=== PATIENT | male | born 1965 | race Hispanic/Latino ===

== ENCOUNTER 2016-09-12 09:36 | Day surgery (SDC) | payer OTHER ==
[~2016-09-12] VITALS: Ht 179.1 cm; Wt 120.7 kg
[~2016-09-12 09:36] MED LIST: FURO-129 PO; Lactated Ringer's 1,000 ML IV ONE; SPIR50TA2 PO
[2016-09-12] MEDS ORDERED: Propofol 10,000 mCg/mL 20 mL Inj ONE (09:37)
[2016-09-12] MEDS ORDERED: MeTOProlol 1 mg/mL 5 mL Inj ONE (09:37)
[2016-09-12] MEDS ORDERED: Lidocaine PF 1% 30 mL Inj ONE (09:37)
[2016-09-12 10:06] VITALS: BP 116/81; PULSE 140; RESP 20; O2SAT 99
[2016-09-12] MEDS ORDERED: MetoCLOpramide 5 mg/mL 2 mL Inj IVPUSH PRN (10:55)
[2016-09-12] MEDS ORDERED: Ondansetron 2 mg/mL 2 mL Inj IVPUSH PRN (10:55)
[2016-09-12] MEDS ORDERED: Lactated Ringer's 1,000 ML IV SCH (10:55)
--- NOTE | 2016-09-12 10:55 | PCM.HPANE ---
Patient Data Date of Service: Sep 12, 2016 Surgeon Admitting Provider: Attending Provider:Heber Foss MD Primary Care Physician:Omar Moralez MD Other Provider:Jack Griggs Anesthesia Reason for Visit Alcoholic Cirrhosis Of Liver Ht/WT & BMI Height (Feet): 5 Height (Inches): 10.5 Weight (Kilograms): 120.66 Body Mass Index 37.00 Allergies Coded Allergies: No Known Drug Allergies (Verified Allergy, Unknown, 09/11/16) Past Anesthesia History Anesthesia History: Positive for:: Difficult Intubation (PT STATES THEY HAD A HARD TIME LAST TIME HE WAS HERE), Denies:: Abnormal Airway, Anesthesia Reactions, Fam Anesthesia Reaction, Fam Malignant Hypertherm, Malignant Hyperthermia Diabetes History Hx Diabetes?: No MRSA MRSA: No Medications Hypertension Medication: Yes Home Meds Incl Beta Endy: No Active Scripts Spironolactone 50 Mg [id number] Mg PO DAILY #30 TABLET Ref 0 Prov:Sharon Arambula MD 03/31/16 Furosemide (Lasix)20 Mg [id number] Mg PO DAILY #30 TABLET Ref 0 Prov:Sharon Arambula MD 03/31/16 History History of ENT Problems?: No HEENT History: Positive for:: Difficult Intubation (PT STATES THEY HAD A HARD TIME LAST TIME HE WAS HERE) Denies:: Abnormal Airway Cataracts Dysphagia Hearing Problem Sinus Problem Hx of Heart Problems?: Yes Cardiovascular History: Positive for:: Edema Hypertension Denies:: AICD Atrial Fibrillation Cardiac Surgery Chest Pain Congestive Heart Failure Heart Murmur Irregular Heartbeat Pacemaker Thrombophlebitis Valvular Heart Disease Other Cardiac History: high HR at times Hx of Respiratory Problem?: No Respiratory History: Positive for:: Cough Denies:: Asthma COPD Chest Surgery Dyspnea Emphysema Hemoptysis Pneumonia Tuberculosis Hx Neurologic Problems?: No Neurological History: Positive for:: Dizziness Denies:: Alzheimer's Disease CVA Dementia Headaches Parkinson's Disease Seizures Hx of GI Problems?: Yes Gastrointestinal History: Positive for:: Cirrhosis Gastroesphageal Reflux Gastrointestinal Bleeding Heartburn Denies:: Diverticulitis Gall Bladder Disease Hepatitis Hiatal Hernia Liver Disease Rectal Bleeding Other GI Pertinent History: esophagus rupture in the past Hx of Problems?: No Genitourinary History: Denies:: HX of Hemodialysis Kidney Stones Urinary Tract Infection HX of Peritoneal Dialysis: No Male Hx: Denies:: Prostate Problems Scrotal Mass Testicular Surgery Hx Musculoskeletal Problems?: Yes Musculoskeletal History: Positive for:: Back Injury (working on fishing boats) Joint Replacement (right knee) Denies:: Musculoskeletal Trauma Hx of Psycho/Social Problems?: No Psycho Social History: Denies:: Anxiety Bipolar Disorder Hx Depression Suicide Attempt Hx Surgeries?: Yes (knee right ) Hx Any Other Health Problems?: Yes Other History: Positive for:: Hospitalization Denies:: Cancer Endocrine Disease Thyroid Disease History Blood Transfusions: Positive for:: Blood Transfusions Denies:: Blood Transfuse Reaction Hx Diabetes: No Hx Alcohol Use: Yes (quit - 05/2016)Hx Substance Use: No Smoking Status: Current Some Day Smoker Have You Smoked inLast 12 mo: No Stop/Bang Treated for Sleep Apnea?: No Do You Have a CPAP Machine?: No S-Snoring: Do You Snore Loudly: Yes T-Tired: feel tired, fatigued: No O-Obsered: Observed not breath: No P-Blood Pressure: treated: No B- Body Mass Index > 35 kg/m2: Yes A- Age over 50: Yes N- Neck Large Circumference: Yes G- Gender Male: Yes FABRICIO Total Score: 5 FABRICIO Risk Assessment: High Risk, =/>3 Yes Risk Assessment Category Category 1A: Patient has history of documented sleep apnea, and HAS NOT received any narcotic, sedative or anesthesia administration during this stay. Category 1B: Patient has history of documented sleep apnea, and HAS received any narcotic , sedative or anesthesia administration during this stay Category 2: Patient has SUSPECTED Obstructive Sleep Apnea, and HAS received any narcotic , sedative or anesthesia administration during this stay. Category 3: Patient has SUSPECTED Obstructive Sleep Apnea and HAS NOT received narcotic, sedative or anesthesia administration during this stay. Category 4: Outpatient in Procedural Areas with known sleep apnea or who screen positive for High Risk via the STOP/BANG questionnaire. Exam Exam Vital Signs Vital Signs Date Time Temp Pulse Resp B/P Pulse Ox O2 Delivery O2 Flow Rate FiO2 09/12/16 10:06 140 20 116/81 99 Room Air General Appearance: Alert, Oriented X3, Cooperative Heart: Normal S1, Normal S2, Other (tachycardic) Meds/Labs/Diagnostics Admission Meds Current Medications Lactated Ringer's (Lr) 1,000 ml @ 10 mls/hr Q24H ONCE IV Last administered on 09/12/16t 10:31; Start 09/12/16 at 06:00; Stop 09/13/16 at 05:59 Diagnositcs EKG for tachycardia. Sinus tach Plan Impression Patient chart reviewed, patient interviewed and anesthestic plan with risks, benefits, and alternatives discussed, and informed consent obtained. NPO Status: > 8 hrs ASA Physical Status: ASA3 Severe Disease Anesthetic Plan: MAC Bene/Risks/Altern/Consents: Yes HP Complete Prior to Induction: Yes Carlos Alberto Hernandez MD Sep 12, 2016 10:55
[2016-09-12 11:27] VITALS: BP 98/71; PULSE 93; RESP 16; O2SAT 94
--- NOTE | 2016-09-12 11:31 | PCM.ANEP1 ---
Post Anesthesia Phase 1 PACU Phase 1 Assessment Date of Service: Sep 12, 2016 Vital Signs Vital Signs Date Time Temp Pulse Resp B/P Pulse Ox O2 Delivery O2 Flow Rate FiO2 09/12/16 11:27 93 16 98/71 94 Room Air 09/12/16 10:06 140 20 116/81 99 Room Air Anesthetic Administered: MAC Level of Alertness: Sleepy, easy to arouse HORTA's with Equal Strength: Yes Pain: No Nausea or Vomiting: No Oxygen Delivery: Room Air Lungs: Normal Air Movement Carlos Alberto Hernandez MD Sep 12, 2016 11:31
[2016-09-12 11:35] VITALS: BP 115/79; PULSE 92; RESP 15; O2SAT 95
--- NOTE | 2016-09-12 11:35 | PCM.ANEP2 ---
Post Anesthesia Evaluation ASA/CMS Post Anesthesia Date of Service: Sep 12, 2016 VS in Patient's Normal Range?: Yes Resp Stable; Airway Patent?: Yes CV Function & Hydration Stable: Yes Mental Status Recovered?: Yes Pain control Satisfactory?: Yes N/V Control Satisfactory?: Yes Carlos Alberto Hernandez MD Sep 12, 2016 11:35
[2016-09-12 11:50] VITALS: BP 113/80; PULSE 86; RESP 16; O2SAT 97
--- NOTE | 2016-09-12 13:33 | ENDO ---
[address] [address] ENDOSCOPY PROCEDURE PATIENT: DARRON FERREIRA : 1965 MR#: [id number] ADMIT: 09/12/2016 JOB ID: [id number] PROCEDURE: Esophagogastroduodenoscopy. INDICATIONS: A 51-year-old male who reports for variceal screening. EQUIPMENT: [employer]. SEDATION: Monitored anesthesia as provided by Dr. Carlos Alberto Hernandez. COMPLICATIONS: None identified. PROCEDURE INFORMATION: After the risks and benefits were explained, written and verbal informed consent was obtained. The patient was brought into the endoscopy suite and placed into the left lateral decubitus position. Sedation was achieved using the above-stated medications with the addition of oxygen via nasal cannula. The scope was introduced into the mouth through the bite block and advanced under direct visualization to the level of the second portion of the duodenum. The scope was slowly withdrawn to carefully examine the mucosa for any defects or lesions. Retroflexed views were accomplished in the stomach, the stomach was decompressed, and the scope removed from the patient who tolerated the procedure reasonably well. FINDINGS: 1. Duodenum: The mucosa appeared normal from the bulb through to the second portion. 2. Stomach: Nonspecific diffuse portal hypertensive gastropathy was noted. No mass lesions. No ulcers. No outlet obstruction. No obvious gastric varices, including retroflexed views of the LES. 3. Esophagus: The squamocolumnar junction correlated with the top of the gastric folds. The GEJ was at 42 cm from the incisors. In the distal esophagus there was evidence of grade 1 and at most grade 2 distal esophageal varices, without stigmata of recent bleeding, and no significant high-risk areas apparent. ENDOSCOPIC DIAGNOSES: 1. Grade 1 to grade 2 distal esophageal varices. 2. Portal hypertensive gastropathy. RECOMMENDATIONS: Repeat EGD for variceal surveillance in two years.
== END 2016-09-12 23:59 | disposition home or self-care (01) ==
LOC: END 09:36
PROVIDERS: ATTEND Internal Medicine Gastroenterology
DX: K70.31 Alcoholic cirrhosis of liver with ascites (principal); I85.10 Secondary esophageal varices without bleeding; K76.6 Portal hypertension; K31.89 Other diseases of stomach and duodenum; F10.21 Alcohol dependence, in remission; K40.90 Unilateral inguinal hernia, without obstruction or gangrene, not specified as recurrent; I10 Essential (primary) hypertension; F17.210 Nicotine dependence, cigarettes, uncomplicated; K21.9 Gastro-esophageal reflux disease without esophagitis; Z96.651 Presence of right artificial knee joint
CPT/HCPCS: 43235; 93005; J2250; J7120

== ENCOUNTER 2016-09-19 13:07 | Inpatient (IN) | payer OTHER ==
[2016-09-19] VITALS (10 sets, daily range): BP systolic 74–128; BP diastolic 43–67; PULSE 108–133; RESP 14–30; O2SAT 93–100
[~2016-09-19] VITALS: Ht 177.8 cm; Wt 124.6 kg
[~2016-09-19 13:07] MED LIST changes: -Lactated Ringer's 1,000 ML IV ONE
[2016-09-19] MEDS ORDERED: 0.9% Sodium Chloride 1,000 ML IV ONE ×2 (13:32→13:43)
--- NOTE | 2016-09-19 13:32 | ED.REPORT ---
HPI-GI Bleed Date of Service Sep 19, 2016 ED Provider: Abdiel Suero MD The patient is a 51 year old male with history of alcohol cirrhosis, thrombocytopenia, acute upper GI bleed secondary to esophageal varices, medication noncompliance due to financial issues, who presents to the emergency department complaining of vomiting that began last night. His emesis has been "bloody" and his stools have been "black." He has also noticed abdominal pain and lightheadedness. He has been drinking over the last few days. Nursing Notes Stated Complaint: GI BLEED Chief Complaint: Male Abdominal Pain Nursing Notes Reviewed: Yes Allergies: Coded Allergies: No Known Drug Allergies (Verified Allergy, Unknown, 09/11/16) Scheduled Furosemide (Lasix) 20 Mg Tablet 20 MG PO DAILY Spironolactone (Spironolactone) 50 Mg Tablet 50 MG PO DAILY General Time Seen by Provider: 13:45 Chief Complaint Chief Complaint: Vomiting blood Bleeding Severity: Moderate Hx Obtained From: Patient, EMS Arrived By: Ambulance Onset Occurred: Yesterday Symptom Duration: Since onset Progression Since Onset: Gradually worsening Quality: Painful Severity: Current: Mild Severity: Maximum: Mild Recent Healthcare: No recent hospitalization Similar Sx Previous: Yes Past Medical History Past Medical History Portal hypertension Coagulopathy Thrombocytopenia Cirrhosis Acute upper GI bleed secondary to esophageal varices 05/25 Medication non-compliance due to inability to afford them Respiratory failure w/ intubation (difficult intubate) Arthritis in hands Back injury Depression Past Surgical History Multiple upper endoscopy, with banding of varices Knee surgery R hand Family History Noncontributory Smoking History Current Some Day Smoker Social History Alcohol Use: 3-5 per day Other Social History: Local resident Ambulatory Status Independent Review of Systems GI: Reports: Abdominal pain, Hematemesis, Melena, Nausea, Vomiting Neurologic: Reports: Lightheaded Complete sys rev & neg: except as marked. Physical Exam Initial Vital Signs Vital Signs (First) Date Time Temp Pulse Resp B/P Pulse Ox O2 Delivery O2 Flow Rate FiO2 09/19/16 13:26 36.6 131 24 111/55 98 Initial VS: Reviewed Neck: Supple, Non-tender, Full range of motion Extremities: Vascular intact, Neuro intact, No swelling, No tenderness Neurologic: Alert, Oriented, Nonfocal Psychiatric: Mood/affect normal, Behavior normal, Normal thought content General/Constitutional: Awake, Alert, Cooperative Not actively having hematemesis Cardiovascular: Regular rhythm, Heart sounds NL, No gallop, No murmurs, No rubs , Cap refill not delayed, Peripheral circulation NL, Pulses = bilaterally Heart Rate / Rhythm: Positive: Tachycardia Abdomen: Soft, Non-tender, No guarding, No rebound, BS normoactive, No distention, No hernia, No palpable mass, No pulsatile mass Tenderness/Guarding/Rebound: Negative: Tender epigastric Mild ascites, abdomen otherwise normal Head / Eyes: Normocephalic, PERRL, EOMI Conjunctiva / Sclera: Positive: Icteric ENT: Airway patent, Mucous membranes moist Dried blood on face Skin Skin: Warm, Dry Color / Condition: Positive: Jaundice present Rash / Lesion Notes: spider hemangioma about her chest Lower Extremity / Pelvis / MS: Neurologic intact, Vascular intact No calf swelling or tenderness Interpretation & Diagnostics Lab Results Interpretation Result Diagram: 09/19/16 1321 09/19/16 1321 Test 09/19/16 13:21 09/19/16 13:43 White Blood Count 12.4th/mm3 (3.8-10.1) Red Blood Count 3.67mil/mm3 (4.40-5.80) Hemoglobin 10.8g/dL (13.8-17.2) Hematocrit 32.0% (41.0-50.0) Mean Corpuscular Volume 87.2fL (81-100) Mean Corpuscular Hemoglobin 29.4pg (27.0-35.0) Mean Corpuscular Hemoglobin Concent 33.8% (32.0-37.0) Red Cell Distribution Width 19.3% (12.3-15.4) Platelet Count 177bil/L (150-400) Neutrophils (%) (Auto) 78.8% (40-74) Lymphocytes (%) (Auto) 9.0% (14-46) Monocytes (%) (Auto) 11.5% (4-12) Eosinophils (%) (Auto) 0.1% (0-5) Basophils (%) (Auto) 0.5% (0-3) Prothrombin Time 15.1sec (8.1-12.5) Prothromb Time International Ratio 1.40ratio Sodium Level 135mEq/L (134-144) Potassium Level 4.4mEq/L (3.5-5.2) Chloride Level 98mEq/L (97-108) Carbon Dioxide Level 22mmol/L (18-29) Blood Urea Nitrogen 24mg/dL (6-24) Creatinine 0.59mg/dL (0.76-1.27) Estimat Glomerular Filtration Rate 155mL/min (>59) Glucose Level 167mg/dL (60-99) Calcium Level 8.3mg/dL (8.5-10.1) Total Bilirubin 2.0mg/dL (0.0-1.2) Aspartate Amino Transf (AST/SGOT) 55U/L (0-50) Alanine Aminotransferase (ALT/SGPT) 21U/L (0-44) Alkaline Phosphatase 120U/L (25-150) Total Protein 6.9g/dL (6.4-8.4) Albumin 3.2g/dL (3.4-5.0) ECG Interpretation ECG Interpretation: Sinus tachycardia with LAFB, otherwise normal EKG Unchanged from prior dated 09/12/2016 Time: 14:10 Interpreted by: ED physician Re-Eval/Medical Decision Med Decision/Clinical Course In summary, the patient is a 16-year-old male with end-stage liver disease due to alcoholic cirrhosis, known esophageal varices with prior upper GI bleed related to esophageal varices who presents to the emergency department with 24 hours of hematemesis. Upon arrival he is experiencing active hematemesis. He is tachycardic in the 130s though otherwise hemodynamically stable. He is mentating normally and is not encephalopathic on my examination. Upon arrival to [facility] IVs were obtained and a fluid bolus was administered. The patient was started on octreotide and pantoprazole boluses followed by infusions. LABS: leukocytosis 12.4, hct 32, INR 1.4, good renal function, bilirubin of 2.0 , mild elev transaminases, ammonia 118, alcohol [address] Pipo PERAZA, he will see him GA and requested ICU admission, Rocephin and 2 units of FFP. We administered IV Rocephin and started FFP transfusion given his INR of 1.4 in the setting of his underlying liver disease. He had no ongoing active episodes of hematemesis though he did report that he has been having melena for the last day as well. Overall presentation consistent with bleeding esophageal varices. Abdomen nontender and no findings suggestive of acute surgical intra- abdominal process or perforated gastric ulcer. I do not feel that abdominal imaging studies are immediately indicated. Patient was stabilized here in the emergency department with improvement in his tachycardia. EKG demonstrated sinus tachycardia which was unchanged from prior studies. She my interpretation of his EKG above. The patient was transferred directly from the emergency department to the endoscopy suite under the care of Dr. Foss. He was discussed with the admitting ICU physician and will be taken to the ICU after endoscopy for further management. Source of Hx: Old records, EMS Consultation #1: Referral / Consult Name: Heber Foss MD Requested Call at: 13:53 Call Returned at: 14:08 Note: ICU admission, Rocephin and 2 units of FFP. Consultation #2: Referral / Consult Name: Shelley Machuca MD Consulted With: Hospitalist Requested Call at: 14:09 Call Returned at: 14:31 Data Virtualization Consultant: Will see patient, Agrees with eval, Agrees with plan, Accepts admit Counseled Regarding: Diagnosis, Lab results, Need for admission Discharge & Departure Impression: Primary Impression: GI bleed GI bleed type/associated pathology: unspecified gastrointestinal hemorrhage type Qualified Code: K92.2 - Gastrointestinal hemorrhage, unspecified Additional Impressions: H/O esophageal varices Upper GI bleed Hematemesis Nausea presence: unspecified Qualified Code: K92.0 - Hematemesis End stage liver disease Alcoholic cirrhosis Ascites presence: with ascites Qualified Code: K70.31 - Alcoholic cirrhosis of liver with ascites Alcohol intoxication Complication of substance-induced condition: with unspecified complication Qualified Code: F10.129 - Alcohol abuse with intoxication, unspecified Coagulopathy Disposition: ADMITTED TO HOSPITAL Discharge Condition All VS Reviewed: Yes Condition: Stable Referrals: Omar Moralez MD (PCP) Crit Care Except Billable Proc Time Spent: 105-134 minutes Services Performed: Patient management by me, Time spent at bedside, Reviewing test results, Reviewing imaging, Discussing patient care, Documentation in record, Time with fam/surrogate Scribe Attestation Portions of this note were transcribed by Kiki Gutierrez. I, Dr. Suero personally performed the history, physical exam and medical decision-making; I reviewed and confirmed the accuracy of the information in the transcribed note. Signed by: Wily Myers, 09/19/2016 and 1630. copies to: Omar Moralez MD, Beck O MD Sep 19, 2016 13:32 Matt,Kiki Yao Sep 19, 2016 13:53
[2016-09-19] MEDS ORDERED: Pantoprazole 4 mg/mL 10 mL Inj IVPUSH ONE (13:45)
[2016-09-19] MEDS ORDERED: Pantoprazole Inj 80 MG, Pharmacy To Mix 1 EA in 0.9% Sodium Chloride 80 ML IV ONE ×2 (13:45)
[2016-09-19] MEDS ORDERED: Ondansetron 2 mg/mL 2 mL Inj IVPUSH ONE (13:45)
[2016-09-19 13:46] LABS: BASOPHILS % (AUTO) 0.5 % (0-3); EOSINOPHILS % (AUTO) 0.1 % (0-5); MONOCYTES % (AUTO) 11.5 % (4-12); Mean Corpuscular Hemoglobin 29.4 pg (27.0-35.0); Mean Corpuscular Volume 87.2 fL (81-100); NEUTROPHILS % (AUTO) 78.8 % (40-74); Platelet Count 177 bil/L (150-400)
[2016-09-19] MEDS ORDERED: Octreotide Inj 500 MCG in 0.9% Sodium Chloride 100 ML IV ONE (13:55)
[2016-09-19 13:57] LABS: INR 1.4 ratio
[2016-09-19] MEDS ORDERED: cefTRIAXone Inj 1,000 MG in Dextrose 5% Minibag Plus 50 ML IV SCH (14:10)
[2016-09-19 14:52] LABS: Ammonia 118 ug/dL (18-53)
[2016-09-19] MEDS ORDERED: 0.9% Sodium Chloride 1,000 ML IV SCH ×2 (14:53→16:00)
[2016-09-19] MEDS ORDERED: Alum-Mag Hydrox-Simeth 30 mL Suspension PO PRN (14:55)
[2016-09-19] MEDS ORDERED: Polyethylene Glycol (PEG) 17 Gm Powder PO PRN (14:55)
[2016-09-19] MEDS ORDERED: Senna-Docusate 8.6-50 mg Tablet PO PRN (14:55)
[2016-09-19] MEDS ORDERED: Octreotide Inj 500 MCG in 0.9% Sodium Chloride 99 ML IV SCH ×3 (14:55→23:50)
[2016-09-19] MEDS ORDERED: Pantoprazole 4 mg/mL 10 mL Inj IV SCH ×2 (15:00→16:00)
[2016-09-19] MEDS: cefTRIAXone Inj 1,000 MG in Dextrose 5% Minibag Plus 50 ML IV SCH (15:31)
[2016-09-19] MEDS ORDERED: Lactated Ringer's 1,000 ML IV ONE ×3 (15:35→16:00)
--- NOTE | 2016-09-19 15:35 | PCM.HPANE ---
Patient Data Surgeon Admitting Provider: Attending Provider: Primary Care Physician:Heber Foss MD Other Provider: Reason for Visit Gi Bleed Ht/WT & BMI Height (Feet): 5 Height (Inches): 10 Weight (Kilograms): 120.45 Body Mass Index Allergies Coded Allergies: No Known Drug Allergies (Verified Allergy, Unknown, 09/11/16) Past Anesthesia History Anesthesia History: Positive for:: Difficult Intubation (PT STATES THEY HAD A HARD TIME LAST TIME HE WAS HERE), Denies:: Abnormal Airway, Anesthesia Reactions, Fam Anesthesia Reaction, Fam Malignant Hypertherm, Malignant Hyperthermia Diabetes History Hx Diabetes?: No MRSA MRSA: No Medications Hypertension Medication: Yes Home Meds Incl Beta Endy: Yes Active Scripts Spironolactone 50 Mg [id number] Mg PO DAILY #30 TABLET Ref 0 Prov:Sharon Arambula MD 03/31/16 Furosemide (Lasix)20 Mg [id number] Mg PO DAILY #30 TABLET Ref 0 Prov:Sharon Arambula MD 03/31/16 History History of ENT Problems?: No HEENT History: Positive for:: Difficult Intubation (PT STATES THEY HAD A HARD TIME LAST TIME HE WAS HERE) Denies:: Abnormal Airway Cataracts Dysphagia Hearing Problem Sinus Problem Hx of Heart Problems?: Yes Cardiovascular History: Positive for:: Edema Hypertension Denies:: AICD Atrial Fibrillation Cardiac Surgery Chest Pain Congestive Heart Failure Heart Murmur Irregular Heartbeat Pacemaker Thrombophlebitis Valvular Heart Disease Hx of Respiratory Problem?: No Respiratory History: Positive for:: Cough Denies:: Asthma COPD Chest Surgery Dyspnea Emphysema Hemoptysis Pneumonia Tuberculosis Hx Neurologic Problems?: No Neurological History: Positive for:: Dizziness Denies:: Alzheimer's Disease CVA Dementia Headaches Parkinson's Disease Seizures Hx of GI Problems?: Yes Gastrointestinal History: Positive for:: Cirrhosis Gastroesphageal Reflux Gastrointestinal Bleeding Heartburn Denies:: Diverticulitis Hepatitis Hiatal Hernia Rectal Bleeding Hx of Problems?: No Genitourinary History: Denies:: HX of Hemodialysis Kidney Stones Urinary Tract Infection HX of Peritoneal Dialysis: No Male Hx: Denies:: Prostate Problems Scrotal Mass Testicular Surgery Hx Musculoskeletal Problems?: Yes Musculoskeletal History: Positive for:: Back Injury (working on [employer]) Joint Replacement (right knee) Denies:: Musculoskeletal Trauma Hx of Psycho/Social Problems?: No Psycho Social History: Denies:: Anxiety Bipolar Disorder Hx Depression Suicide Attempt Hx Surgeries?: Yes (knee right ) Hx Any Other Health Problems?: Yes Other History: Positive for:: Hospitalization Denies:: Cancer Endocrine Disease Thyroid Disease History Blood Transfusions: Positive for:: Blood Transfusions Denies:: Blood Transfuse Reaction Hx Diabetes: No Hx Alcohol Use: Yes (quit - 05/2016)Hx Substance Use: No Smoking Status: Current Some Day Smoker Have You Smoked inLast 12 mo: No Stop/Bang Treated for Sleep Apnea?: No Do You Have a CPAP Machine?: No Risk Assessment Category Category 1A: Patient has history of documented sleep apnea, and HAS NOT received any narcotic, sedative or anesthesia administration during this stay. Category 1B: Patient has history of documented sleep apnea, and HAS received any narcotic , sedative or anesthesia administration during this stay Category 2: Patient has SUSPECTED Obstructive Sleep Apnea, and HAS received any narcotic , sedative or anesthesia administration during this stay. Category 3: Patient has SUSPECTED Obstructive Sleep Apnea and HAS NOT received narcotic, sedative or anesthesia administration during this stay. Category 4: Outpatient in Procedural Areas with known sleep apnea or who screen positive for High Risk via the STOP/BANG questionnaire. Exam Exam Vital Signs Vital Signs Date Time Temp Pulse Resp B/P Pulse Ox O2 Delivery O2 Flow Rate FiO2 09/19/16 15:09 120 30 120/50 93 Room Air 09/19/16 13:26 36.6 131 24 111/55 98 General Appearance: Mild Distress HEENT/AIRWAY: MP 2 Lungs: Clear to Auscultation Heart: Exam Unremarkable Meds/Labs/Diagnostics Admission Meds Current Medications Sodium Chloride (Normal Saline) 1,000 ml @ 0 mls/hr Q0M ONCE IV Last administered on 09/19/16 13:44; Start 09/19/16 at 13:32; Stop 09/19/16 at 13:34; Status DC Pantoprazole 80 mg 80 mg STAT ONCE IVPUSH Last administered on 09/19/16 14:02 ; Start 09/19/16 at 13:45; Stop 09/19/16 at 13:46; Status DC Pantoprazole 80 mg/Miscellaneous 1 ea/Sodium Chloride 100 ml @ 10 mls/hr ONCE ONCE IV Last administered on 09/19/16 14:29; Start 09/19/16 at 13:45; Stop at 23:44 Sodium Chloride (Normal Saline) 1,000 ml @ 0 mls/hr Q0M ONCE IV Last administered on 09/19/16 14:02; Start 09/19/16 at 13:43; Stop 09/19/16 at 13:45; Status DC Ondansetron HCl (Zofran Inj) 8 mg ONCE ONCE IVPUSH Last administered on 14:02; Start 09/19/16 at 13:45; Stop 09/19/16 at 13:46; Status DC Octreotide Acetate 50 mcg 50 mcg ONCE ONCE IVPUSH Last administered on 15:08; Start 09/19/16 at 13:55; Stop 09/19/16 at 13:56; Status DC Octreotide Acetate 500 mcg/ Sodium Chloride 101 ml @ 10.1 mls/hr ONCE ONCE IV Last administered on 09/19/16 14:29; Start 09/19/16 at 13:55; Stop 09/19/16 at 23:54 Ceftriaxone Sodium/Dextrose/ Water (Rocephin Inj/ D5W Minibag Plus) 50 ml @ 100 mls/hr Q24H IV Last administered on 09/19/16 15:31; Start 09/19/16 at 14:55 ; Status UNV Labs Test 09/19/16 13:21 09/19/16 13:43 White Blood Count 12.4th/mm3 (3.8-10.1) Red Blood Count 3.67mil/mm3 (4.40-5.80) Hemoglobin 10.8g/dL (13.8-17.2) Hematocrit 32.0% (41.0-50.0) Mean Corpuscular Volume 87.2fL (81-100) Mean Corpuscular Hemoglobin 29.4pg (27.0-35.0) Mean Corpuscular Hemoglobin Concent 33.8% (32.0-37.0) Red Cell Distribution Width 19.3% (12.3-15.4) Platelet Count 177bil/L (150-400) Neutrophils (%) (Auto) 78.8% (40-74) Lymphocytes (%) (Auto) 9.0% (14-46) Monocytes (%) (Auto) 11.5% (4-12) Eosinophils (%) (Auto) 0.1% (0-5) Basophils (%) (Auto) 0.5% (0-3) Prothrombin Time 15.1sec (8.1-12.5) Prothromb Time International Ratio 1.40ratio Sodium Level 135mEq/L (134-144) Potassium Level 4.4mEq/L (3.5-5.2) Chloride Level 98mEq/L (97-108) Carbon Dioxide Level 22mmol/L (18-29) Blood Urea Nitrogen 24mg/dL (6-24) Creatinine 0.59mg/dL (0.76-1.27) Estimat Glomerular Filtration Rate 155mL/min (>59) Glucose Level 167mg/dL (60-99) Calcium Level 8.3mg/dL (8.5-10.1) Total Bilirubin 2.0mg/dL (0.0-1.2) Aspartate Amino Transf (AST/SGOT) 55U/L (0-50) Alanine Aminotransferase (ALT/SGPT) 21U/L (0-44) Alkaline Phosphatase 120U/L (25-150) Total Protein 6.9g/dL (6.4-8.4) Albumin 3.2g/dL (3.4-5.0) Ammonia 118ug/dL (18-53) Alcohol, Quantitative 92mg/dL (0-10) Plan Impression Patient chart reviewed, patient interviewed and anesthestic plan with risks, benefits, and alternatives discussed, and informed consent obtained. NPO Status: > 8 hrs ASA Physical Status: ASA3 Severe Disease (cirrhosis, varices, depression, arthritis) Anesthetic Plan: GA, MAC Bene/Risks/Altern/Consents: Yes HP Complete Prior to Induction: Yes Tyree Burton MD Sep 19, 2016 15:35
[2016-09-19] MEDS: Ondansetron 2 mg/mL 2 mL Inj IVPUSH PRN ×2 (16:02→19:37)
--- NOTE | 2016-09-19 16:38 | PCM.HPMED ---
Subjective Date of Service Sep 19, 2016 Primary Provider: Admitting Physician: Primary Care Physician: Heber Foss MD Attending Physician: Shelley Machuca MD Admit Status: From the Emergency Department, Full Admit, Critical Care Chief Complaint: Patient comes in complaining of black stool History of Present Illness: This is a 51-year-old male with a history of cirrhosis,. Thrombocytopenia history of upper GI bleed secondary to esophageal varices who comes in complaining of black stool over the past several days he also notes over the past days been having some vomiting and noticed some blood. There was an episode of vomitus of bright red blood in the emergency room 1. GI was notified regarding this patient. Patient does admit to having no alcohol over the past few months but over the past few days was drinking alcohol. He is somewhat vague as to the amount. He denies any abdominal pain. Nausea any fevers or chills. The emergency room was noted to be tachycardic to 131 sinus. Does admit to having some lightheadedness over the past 2 days. He did have an EGD done September 12 and report of this is as below: PROCEDURE: Esophagogastroduodenoscopy. INDICATIONS: A 51-year-old male who reports for variceal screening. EQUIPMENT: [employer]. SEDATION: Monitored anesthesia as provided by Dr. Carlos Alberto Hernandez. COMPLICATIONS: None identified. PROCEDURE INFORMATION: After the risks and benefits were explained, written and verbal informed consent was obtained. The patient was brought into the endoscopy suite and placed into the left lateral decubitus position. Sedation was achieved using the above-stated medications with the addition of oxygen via nasal cannula. The scope was introduced into the mouth through the bite block and advanced under direct visualization to the level of the second portion of the duodenum. The scope was slowly withdrawn to carefully examine the mucosa for any defects or lesions. Retroflexed views were accomplished in the stomach, the stomach was decompressed, and the scope removed from the patient who tolerated the procedure reasonably well. FINDINGS: 1. Duodenum: The mucosa appeared normal from the bulb through to the second portion. 2. Stomach: Nonspecific diffuse portal hypertensive gastropathy was noted. No mass lesions. No ulcers. No outlet obstruction. No obvious gastric varices, including retroflexed views of the LES. 3. Esophagus: The squamocolumnar junction correlated with the top of the gastric folds. The GEJ was at 42 cm from the incisors. In the distal esophagus there was evidence of grade 1 and at most grade 2 distal esophageal varices, without stigmata of recent bleeding, and no significant high-risk areas apparent. ENDOSCOPIC DIAGNOSES: 1. Grade 1 to grade 2 distal esophageal varices. 2. Portal hypertensive gastropathy. RECOMMENDATIONS: Repeat EGD for variceal surveillance in two years. Heber Foss MD 09/12/16 1121 Report status: Draft Transcribed by: SAIMA 09/12/16 133 REPORT#: [id number] cc: Omar Moralez MD; Heber Foss MD Review of Systems: Review of systems are reviewed and are negative except as in history of present illness Allergies Coded Allergies: No Known Drug Allergies (Verified Allergy, Unknown, 09/11/16) Home Medications Furosemide (Lasix) 20 Mg Tablet 20 MG PO DAILY Spironolactone (Spironolactone) 50 Mg Tablet 50 MG PO DAILY PMH Portal hypertension Coagulopathy Thrombocytopenia Cirrhosis Acute upper GI bleed secondary to esophageal varices 05/25 Medication non-compliance due to inability to afford them Respiratory failure w/ intubation (difficult intubate) Arthritis in hands Back injury Depression Past Surgical History Multiple upper endoscopy, with banding of varices Knee surgery R hand Family History Family history of any gastrointestinal issues Social History Hx Alcohol Use: Yes (quit - 05/2016) Hx Substance Use: No Hx Tobacco Use: Yes (OCCAS) Smoking Status: Current Some Day Smoker Living Arrangement: with Family Exam Vital Signs Vital Sign - Last Date Time Temp Pulse Resp B/P Pulse Ox O2 Delivery O2 Flow Rate FiO2 09/19/16 15:52 133 14 128/57 100 Room Air 09/19/16 13:26 36.6 Exam Constitutional: Middle-aged man in no acute distress Head: Normocephalic atraumatic Neck: No adenopathy Chest: Clear to auscultation Heart: Tachycardic and regular rhythm S1-S2 Abdomen soft nontender bowel sounds present Extremities: No pedal edema Skin: No rashes Psych: Mood and affect are appropriate Neuro: Alert and oriented 3 motor and sensory are intact bilaterally Lab and Diagnostics Labs Laboratory Tests 72 Hours Test 09/19/16 13:21 09/19/16 13:43 09/19/16 16:17 09/19/16 16:20 White Blood Count 12.4th/mm3 (3.8-10.1) Red Blood Count 3.67mil/mm3 (4.40-5.80) Hemoglobin 10.8g/dL (13.8-17.2) 10.5g/dL (13.8-17.2) Hematocrit 32.0% (41.0-50.0) 31.9% (41.0-50.0) Mean Corpuscular Volume 87.2fL (81-100) Mean Corpuscular Hemoglobin 29.4pg (27.0-35.0) Mean Corpuscular Hemoglobin Concent 33.8% (32.0-37.0) Red Cell Distribution Width 19.3% (12.3-15.4) Platelet Count 177bil/L (150-400) Neutrophils (%) (Auto) 78.8% (40-74) Lymphocytes (%) (Auto) 9.0% (14-46) Monocytes (%) (Auto) 11.5% (4-12) Eosinophils (%) (Auto) 0.1% (0-5) Basophils (%) (Auto) 0.5% (0-3) Prothrombin Time 15.1sec (8.1-12.5) Prothromb Time International Ratio 1.40ratio Sodium Level 135mEq/L (134-144) Potassium Level 4.4mEq/L (3.5-5.2) Chloride Level 98mEq/L (97-108) Carbon Dioxide Level 22mmol/L (18-29) Blood Urea Nitrogen 24mg/dL (6-24) Creatinine 0.59mg/dL (0.76-1.27) Estimat Glomerular Filtration Rate 155mL/min (>59) Glucose Level 167mg/dL (60-99) Calcium Level 8.3mg/dL (8.5-10.1) Total Bilirubin 2.0mg/dL (0.0-1.2) Aspartate Amino Transf (AST/SGOT) 55U/L (0-50) Alanine Aminotransferase (ALT/SGPT) 21U/L (0-44) Alkaline Phosphatase 120U/L (25-150) Total Protein 6.9g/dL (6.4-8.4) Albumin 3.2g/dL (3.4-5.0) Ammonia 118ug/dL (18-53) Alcohol, Quantitative 92mg/dL (0-10) Result Diagram: 09/19/16 1321 09/19/16 1321 Assessment & Plan # Upper GI bleed, acute, present on admission GI aware and will do endoscopy today. Check serial hematocrits As per GI will give 2 units of FFP IV ceftriaxone along with IV octreotide Also administer IV fluids # Alcoholic cirrhosis, chronic, present on admission Currently does not appear encephalopathic. We will continue to monitor Encouraged alcohol abstinence # History of EtOH abuse, acute on chronic, present on admission We will monitor for signs and symptoms of alcohol withdrawal #DVT prophylaxis We will use SCDs # CODE STATUS Full code Resuscitation Status: CPR: Attempt Resuscitation Time spent 60 minutes Shelley Machuca MD Sep 19, 2016 16:38
[2016-09-19] MEDS ORDERED: Ketamine 10 mg/mL 20 mL Inj ONE (17:50)
[2016-09-19] MEDS ORDERED: fentaNYL-PF 50 mCg/mL 2 mL Inj ONE (17:50)
[2016-09-19] MEDS: Pantoprazole 8 mg/Hr Infusion IV SCH ×2 (18:15)
--- NOTE | 2016-09-19 19:18 | CONS ---
[address] [address] CONSULTATION REPORT PATIENT: DARRON FERREIRA : 1965 MR#: [id number] ADMIT: 09/19/2016 JOB ID: [id number] DATE OF SERVICE: 09/19/2016 REQUESTING PROVIDER: Abdiel Suero MD REASON FOR CONSULTATION: Upper GI bleeding. HISTORY OF PRESENT ILLNESS: This is a 51-year-old male with established alcohol-induced cirrhosis with prior esophageal banding back in 2012. He had a recent EGD one week ago which demonstrated grade 1 and grade 2 nonbleeding varices with no stigmata of recent bleeding. The patient indicates that he has unfortunately started drinking again and last consumed yesterday. He drank quite a bit over [employer]. He has had a cough that is been going on for the last couple of weeks or more and has had a lot of sneezing. Starting last night he began to have emesis of dark blood, then this morning he noticed his stool was black. He elected to come in for evaluation. The patient was started on a PPI drip, octreotide, and given antibiotics in the ED. His INR was slightly elevated and I recommended a couple of units of fresh frozen plasma. ALLERGIES: No known drug allergies. MEDICATIONS: The patient was taking Lasix 20 mg and spironolactone 50 mg daily. He recently started to take a cough suppressant that had Tylenol and Benadryl but no NSAID. PAST MEDICAL HISTORY: 1. Alcohol induced cirrhosis with varices status post banding. 2. Chronic right inguinal hernia. 3. Ascites. PAST SURGICAL HISTORY: None. SOCIAL HISTORY: The patient has once again started to drink. His sister was with him today in the hospital. FAMILY HISTORY: Noncontributory. REVIEW OF SYSTEMS: As per history of present illness. The patient indicates that he had some more emesis this afternoon but did not see any significant red blood in it. PHYSICAL EXAMINATION: Blood pressure 111/55 on admission. His heart rate was in the 120s-130s. He is breathing in the 20s; 100% on room air. Afebrile. The patient is conversational, in no distress. Alert, oriented. Good air entry. No evidence of jaundice. Skin: Warm and dry. Perhaps trace edema in the lower extremities bilaterally. Abdomen is large, with a lot of excess stored adipose, but no obvious ascites. Lungs were reasonably clear bilaterally. IMAGING: No recent chest x-ray. LABORATORY DATA: White count was 12.4, hemoglobin 10.8, hematocrit 32.0, platelets 177. INR 1.40. Bilirubin 2.0, AST 55, ALT 21, alk phos 120, albumin 3.2, protein 6.9, ammonia 118. Troponins are negative. Alcohol level was 92. ASSESSMENT AND PLAN: A 51-year-old male with alcoholic cirrhosis and established varices/portal hypertension who comes in with acute upper GI bleeding that seems to have started over the last at least a couple of days. This has been in the context of chronic coughing and sneezing over the last couple of weeks. In that we just did an EGD a week ago, and he did not have very high-risk varices, a Philly-Ryder tear is high on the differential. The patient has been commenced on PPI drip and octreotide quite appropriately. I have recommended a dose of Rocephin in the ER in light of his portal hypertension status. EGD was discussed, along with the potential for complications, and the patient consented. Please see the procedure note for further details.
--- NOTE | 2016-09-19 21:47 | ENDO ---
[address] [address] ENDOSCOPY PROCEDURE PATIENT: DARRON FERREIRA : 1965 MR#: [id number] ADMIT: 09/19/2016 JOB ID: [id number] PROCEDURE: Esophagogastroscopy. INDICATIONS: This is a 51-year-old male with hematemesis and melena of uncertain etiology. EQUIPMENT: Standard upper endoscope. SEDATION: Monitored anesthesia as provided by Dr. Tyree Burton. COMPLICATIONS: None identified. PROCEDURE INFORMATION: After the risks and benefits were explained, written and verbal informed consent was obtained. The patient was brought into the endoscopy suite and placed into the left lateral decubitus position. Sedation was achieved as above. The scope introduced into the mouth through the bite block and advanced under direct visualization through the oropharynx, esophagus, down into the proximal stomach. We encountered a moderate amount of black dark blood clot debris. No fresh blood anywhere. We did not traverse any further in light of the large volume of dark blood seen. Additionally, the likely culprit lesion was seen. The scope was ultimately removed after decompressing the stomach. The scope was withdrawn from the patient who tolerated the procedure well. FINDINGS: 1. Duodenum: Not examined today. 2. Stomach: The patient had no evidence of any red blood. There was old blood in clot form seen within the lumen. No gastric varices apparent. 3. Esophagus: Again, the patient had evidence of grade 1 to grade 2 distal esophageal varices without stigmata of recent bleeding and no significant high-risk areas. However, right at the GE junction, there was evidence of an ulcerated area consistent with healing Philly-Ryder tear. There was no evidence of any oozing or active bleeding at present and we therefore elected to not pursue any direct intervention at present. ENDOSCOPIC DIAGNOSES: 1. Nonbleeding Philly-Ryder tear. 2. Nonbleeding distal esophageal varices. 3. No evidence of active bleeding. Stomach moderately full of old blood. RECOMMENDATIONS: 1. Clear liquid diet. 2. Stop octreotide. 3. Continue PPI drip until tomorrow morning and then convert over to b.i.d. Protonix therapy (this has been ordered). 4. Continue antibiotics for the next four more days. 5. I would defer to the primary service as to the workup for his cough x2 weeks. It sounds like he needs at least a chest x-ray. 6. The patient has resumed alcohol, and I am not sure how long he has actually been drinking. He therefore is once again at risk for withdrawal and should be monitored accordingly.
[2016-09-19] MEDS: 0.9% Sodium Chloride 1,000 ML IV SCH (23:04)
[2016-09-20] VITALS (8 sets, daily range): BP systolic 102–117; BP diastolic 64–74; PULSE 86–109; RESP 16–20; O2SAT 94–99
[2016-09-20] MEDS: Pantoprazole 8 mg/Hr Infusion IV SCH ×2 (00:03)
[2016-09-20 04:49] LABS: BASOPHILS % (AUTO) 0.4 % (0-3); EOSINOPHILS % (AUTO) 0.3 % (0-5); MONOCYTES % (AUTO) 18.9 % (4-12); Mean Corpuscular Hemoglobin 28.9 pg (27.0-35.0); Mean Corpuscular Volume 86.7 fL (81-100); Platelet Count 115 bil/L (150-400)
[2016-09-20] MEDS: 0.9% Sodium Chloride 1,000 ML IV SCH ×3 (04:50→19:45)
[2016-09-20] MEDS: Ondansetron 2 mg/mL 2 mL Inj IVPUSH PRN ×2 (08:26→19:50)
[2016-09-20] MEDS: Pantoprazole 40 mg ER24 Tablet PO SCH ×2 (08:26→16:52)
[2016-09-20] MEDS: Multivit-Miner-Folic Acid-Iron Tablet PO SCH (10:04)
--- NOTE | 2016-09-20 13:04 | PCM.PNMED ---
Subjective Date of Service Sep 20, 2016 Subjective Patient was examined at bedside today. Patient denies any chest pain, shortness of breath, nausea, vomiting, diarrhea. Patient reports abdominal pain , cough, and seems to be a little more agitated. Patient also complains of myalgias and "not feeling well". Exam Vital Signs Vital Sign - Last Date Time Temp Pulse Resp B/P Pulse Ox O2 Delivery O2 Flow Rate FiO2 09/20/16 12:23 36.8 86 18 114/74 97 Room Air 09/19/16 17:10 4 Intake and Output 09/19/16 09/19/16 09/20/16 Cumulative From/Thru 15:00 23:00 07:00 09/19/16 13:26 - 09/20/16 06:39 Intake Total 2000 ml 200 ml 1518 ml 3718 ml Output Total 1350 ml 1350 ml Balance 2000 ml 200 ml 168 ml 2368 ml Intake Oral 1518 ml 1518 ml IV Total 2000 ml 200 ml 2200 ml Output Urine Total 1050 ml 1050 ml Emesis 300 ml 300 ml # Voids 1 1 # Bowel Movements 3 3 Exam Physical Exam: GEN: Patient was awake, alert, responding appropriately to questions HEENT: PERRLA, EOMI, Neck soft supple, trachea midline, nomocephalic/atraumatic CV: +S1/S2, RRR, no murmurs auscultated Respiratory: CTAB, no wheezes, rales, rhonchi GI: +bowel sounds x4, soft, compressible, non TTP EXT: no c/c/e Neuro: CN II-XII grossly intact Psych: mood and affect were appropriate IVs and Medications Medications Reviewed: Medications were reviewed in detail Medications Current Medications Ceftriaxone Sodium 1000 mg/ Dextrose/Water 50 ml @ 100 mls/hr ONCE IV; Start at 14:10; Status Cancel Sodium Chloride 1,000 ml @ 125 mls/hr Q8H IV; Start 09/19/16 at 14:53; Stop 09/19 at 15:47; Status DC Ondansetron HCl 4 to 8 mg Q4H PRN IVPUSH Last administered on 09/20/16t 08:26; Admin Dose 8 MG; Start 09/19/16 at 14:55 Senna 2 tablet BID PRN PO; Start 09/19/16 at 14:55 Al Hydrox/Mg Hydrox/Simethicone 30 ml Q6H PRN PO; Start 09/19/16 at 14:55 Polyethylene Glycol 17 gm DAILY PRN PO; Start 09/19/16 at 14:55 Pantoprazole 8 mg 8 mg Q1H IV; Start 09/19/16 at 15:00; Stop 09/19/16 at 15:47; Status DC Octreotide Acetate 500 mcg/ Sodium Chloride 100 ml @ 10 mls/hr Q10H IV; Start 09/19/16 at 14:55; Stop 09/19/16 at 15:47; Status DC Ceftriaxone Sodium 1000 mg/ Dextrose/Water 50 ml @ 100 mls/hr Q24H IV Last administered on 09/19/16 15:31; Admin Dose 100 MLS/HR; Start 09/19/16 at 14:55 Octreotide Acetate 500 mcg/ Sodium Chloride 100 ml @ 10 mls/hr Q10H IV; Start 09/19/16 at 16:00; Status UNV Sodium Chloride 1,000 ml @ 125 mls/hr Q8H IV; Start 09/19/16 at 16:00; Status UNV Pantoprazole 8 mg 8 mg Q1H IV; Start 09/19/16 at 16:00; Status UNV Octreotide Acetate 500 mcg/ Sodium Chloride 100 ml @ 10 mls/hr Q10H IV; Start 09/19/16 at 23:50; Stop 09/19/16 at 23:50; Status DC Pantoprazole/ Sodium Chloride 100 ml @ 10 mls/hr Q10H IV Last administered on 00:03; Admin Dose 10 MLS/HR; Start 09/19/16 at 18:15; Stop 09/20/16 at 08: 30; Status DC Pantoprazole 40 mg 40 mg BIDAC PO Last administered on 09/20/16 08:26; Admin Dose 40 MG; Start 09/20/16 at 07:30 Sodium Chloride 1,000 ml @ 150 mls/hr Q6H40M IV Last administered on 09/19/16 23:04; Admin Dose 150 MLS/HR; Start 09/19/16 at 22:10 Prenat Multivit/ Lyon/Iron/Folic Ac 1 tablet DAILY PO Last administered on 10:04; Admin Dose 1 TABLET; Start 09/20/16 at 08:40 Thiamine HCl 100 mg DAILY PO Last administered on 09/20/16t 10:05; Admin Dose 100 MG; Start 09/20/16 at 09:01 Lab and Diagnostics Result Diagram: 09/20/1642909/20/16429 Assessment & Plan 51-year-old male with a history of cirrhosis, thrombocytopenia, history of upper GI bleed secondary to esophageal varices who presented with the complaint of black stools and abdominal pain with nausea and vomiting. Upper GI bleed, acute, present on admission -GI performed endoscopy which showed nonbleeding Philly-Ryder tear, nonbleeding distal esophageal varices, no evidence of active bleeding however moderately full of old blood. -Continue Protonix 40 twice a day as per recommendations by GI - Continue ceftriaxone 3 more doses -IV octreotide has been discontinued -We will continue to follow hemoglobin and hematocrit -Continue IV fluids -Patient is on clear diet will advance as tolerated -Stool cultures positive for blood -Patient may need colonoscopy will discuss with GI Alcoholic cirrhosis, chronic, present on admission -Currently does not appear encephalopathic. We will continue to monitor -Encouraged alcohol abstinence History of EtOH abuse, acute on chronic, present on admission -CIWA protocol and place current scores of 13 -We will continue to monitor History of URI present on admission -Fluid culture negative -Viral PCR positive for coronal virus -Continue supportive therapy -Tessalon Perles when necessary for cough DVT prophylaxis: SCDs CODE STATUS: Full code Disposition: Patient's H&H is currently dropping and his stools were positive for blood this morning. Patient may need a colonoscopy. Patient is also acutely withdrawing from alcohol and has been placed on CIWA protocol and currently is scoring a 13. We will continue to monitor. Resuscitation Status: CPR: Attempt Resuscitation Time spent Greater than 35 minutes Odalys Carrillo DO Sep 20, 2016 13:04
[2016-09-20] MEDS: cefTRIAXone Inj 1,000 MG in Dextrose 5% Minibag Plus 50 ML IV SCH (15:35)
--- NOTE | 2016-09-20 15:53 | DRSVH ---
PROCEDURE: X-RAY CHEST ONE VIEW, PORTABLE ([id number]) INDICATIONS: cough TECHNIQUE: One view of the chest was acquired. COMPARISON: [facility], , CHEST 1VW (PORTABLE), 04/08/2013, 16:36. FINDINGS: Surgical changes and devices: None. Lungs and pleura: No pleural effusions or pneumothorax. Lungs are clear. Mediastinum: Mediastinal contours appear normal. Heart size is normal. Bones and chest wall: No suspicious bony lesions. Overlying soft tissues appear unremarkable. IMPRESSION: No acute cardiopulmonary disease. Dictated by: Sabino CHRISTENSEN Interpreted: Gorge Gil MD on 09/20/2016 at 15:51 Transcribed by: ANTONINA on 09/20/2016 at 15:52 Approved by: Gorge Gil M.D. on 09/21/2016 at 9:35
--- NOTE | 2016-09-20 23:17 | PROG NOTE ---
[address] [address] PROGRESS NOTE PATIENT: DARRON FERREIRA : 1965 MR#: [id number] ADMIT: 09/19/2016 JOB ID: [id number] DATE: 09/20/16 SUBJECTIVE: The patient had four small volume melenic bowel movements today. He has not had any further emesis. He has been medicated for nausea this morning. He continues to have coughing. Chest x-ray was accomplished and did not reveal any acute cardiopulmonary disease. Interestingly, his nasopharyngeal swab came back consistent with coronavirus. OBJECTIVE: Vital signs are stable. Patient in no distress. He is on CIWA protocol. He has been converted over to oral pantoprazole and remains on Rocephin. He is also getting thiamine. LABORATORIES: Hemoglobin dropped to 8.5. White count is now 7.0. Platelets 115. His BUN went from 24 to 17. For some reason, he had a wildly elevated lactate yesterday afternoon at 7.1. It is back at 1.6 this morning. Sodium is a little low at 133. Potassium 4.1, chloride 100, bicarb 24, BUN 17, creatinine 0.50, glucose 121, calcium 7.8. ASSESSMENT AND RECOMMENDATIONS: This is a 51-year-old male with alcoholic cirrhosis and portal hypertension who has been experiencing, coughing and sneezing over the last couple of weeks, likely precipitated a Philly-Ryder tear which was identified at endoscopy yesterday. In spite of his blood count registering a hemoglobin of 8.5 this morning, I do not suspect that he has any ongoing active bleeding. I think continued PPI use and advancement to a low sodium diet would be fine this evening. He will need another three more days of antibiotic beyond today. He obviously continues to require observation for alcohol withdrawal symptoms. [facility]
[2016-09-21] VITALS (7 sets, daily range): BP systolic 94–118; BP diastolic 57–72; PULSE 71–96; RESP 16–20; O2SAT 96–98
[2016-09-21] MEDS: 0.9% Sodium Chloride 1,000 ML IV SCH (02:14)
[2016-09-21 03:11] LABS: Mean Corpuscular Volume 87.4 fL (81-100)
[2016-09-21] MEDS: Ondansetron 2 mg/mL 2 mL Inj IVPUSH PRN (07:44)
[2016-09-21] MEDS: Multivit-Miner-Folic Acid-Iron Tablet PO SCH (08:24)
[2016-09-21] MEDS: Pantoprazole 40 mg ER24 Tablet PO SCH ×2 (08:24→17:24)
[2016-09-21] MEDS: cefTRIAXone Inj 1,000 MG in Dextrose 5% Minibag Plus 50 ML IV SCH (14:56)
--- NOTE | 2016-09-21 16:12 | PCM.PNMED ---
Subjective Date of Service Sep 21, 2016 Subjective Patient was examined at bedside today. Patient denies any chest pain, shortness of breath, nausea, vomiting, diarrhea. Patient is currently complaining of cough, abdominal pain and decreased appetite. Patient also reports episodes of black stools. Patient is currently on a full liquid diet and seems to be tolerating this currently as he is has not reported any nausea or vomiting. Exam Vital Signs Vital Sign - Last Date Time Temp Pulse Resp B/P Pulse Ox O2 Delivery O2 Flow Rate FiO2 09/21/16 11:19 36.8 80 17 104/67 96 Room Air 09/19/16 17:10 4 Intake and Output 09/20/16 09/20/16 09/21/16 Cumulative From/Thru 15:00 23:00 07:00 09/19/16 13:26 - 09/21/16 06:51 Intake Total 1200 ml 2243 ml 2061 ml 9222 ml Output Total 700 ml 1650 ml 3700 ml Balance 1200 ml 1543 ml 411 ml 5522 ml Intake Oral 320 ml 375 ml 2213 ml IV Total 1200 ml 1923 ml 1686 ml 7009 ml Output Urine Total 700 ml 1750 ml Urine/Stool Mix 1650 ml 1650 ml Emesis 300 ml # Voids 1 # Bowel Movements 2 2 7 Exam Physical Exam: GEN: Patient was awake, alert, responding appropriately to questions HEENT: PERRLA, EOMI, Neck soft supple, trachea midline, nomocephalic/atraumatic CV: +S1/S2, RRR, no murmurs auscultated Respiratory: CTAB, no wheezes, rales, rhonchi GI: +bowel sounds x4, soft, compressible, mild TTP EXT: no c/c/e Neuro: CN II-XII grossly intact Psych: mood and affect were appropriate IVs and Medications Medications Reviewed: Medications were reviewed in detail Medications Current Medications Octreotide Acetate 500 mcg/ Sodium Chloride 100 ml @ 10 mls/hr Q10H IV; Start 09/19/16 at 23:50; Stop 09/19/16 at 23:50; Status DC Pantoprazole/ Sodium Chloride 100 ml @ 10 mls/hr Q10H IV Last administered on t 00:03; Admin Dose 10 MLS/HR; Start 09/19/16 at 18:15; Stop 09/20/16 at 08: 30; Status DC Pantoprazole 40 mg 40 mg BIDAC PO Last administered on 09/21/16 08:24; Admin Dose 40 MG; Start 09/20/16 at 07:30 Sodium Chloride 1,000 ml @ 150 mls/hr Q6H40M IV Last administered on 09/21/16 02:14; Admin Dose 150 MLS/HR; Start 09/19/16 at 22:10; Stop 09/21/16 at 08:21; Status DC Prenat Multivit/ [place]/Iron/Folic Ac 1 tablet DAILY PO Last administered on 08:24; Admin Dose 1 TABLET; Start 09/20/16 at 08:40 Thiamine HCl 100 mg DAILY PO Last administered on 09/21/16 08:24; Admin Dose 100 MG; Start 09/20/16 at 09:01 Benzonatate 100 mg TID PRN PO Last administered on 09/21/16 14:57; Admin Dose 100 MG; Start 09/21/16 at 14:15 Lab and Diagnostics Result Diagram: 09/21/16 02509/21/16 0250 Assessment & Plan 51-year-old male with a history of cirrhosis, thrombocytopenia, history of upper GI bleed secondary to esophageal varices who presented with the complaint of black stools and abdominal pain with nausea and vomiting. Upper GI bleed, acute, present on admission -GI performed endoscopy which showed nonbleeding Philly-Ryder tear, nonbleeding distal esophageal varices, no evidence of active bleeding however moderately full of old blood. -Continue Protonix 40 twice a day as per recommendations by GI - Continue ceftriaxone 3 more days -IV octreotide has been discontinued -We will continue to follow hemoglobin and hematocrit -Continue IV fluids -Patient is on clear diet will advance as tolerated -Stool cultures positive for blood -Patient may need colonoscopy will discuss with GI Acute microcytic anemia -Hemoglobin 8.0 today -At this point GI is not concerned that the patient currently bleeding and the labs are just not reflecting the previous bleed. -We will continue to monitor Alcoholic cirrhosis, chronic, present on admission -Currently does not appear encephalopathic. We will continue to monitor -Encouraged alcohol abstinence History of EtOH abuse, acute on chronic, present on admission -CIWA protocol and place current scores of 15 - Continue thiamine and folic acid -We will continue to monitor History of URI present on admission -Fluid culture negative -Viral PCR positive for coronal virus -Continue supportive therapy -Tessalon Perles when necessary for cough DVT prophylaxis: SCDs CODE STATUS: Full code Disposition: Patient's H&H is currently dropping and his stools are still dark in color. GI has been made aware of this however are not concerned at this time that the patient is currently bleeding. This may be the blood that is processing that was previously found in the stomach. The patient's dropping H& H may be from the previous blood from the Philly-Ryder tears. We will continue to monitor. Patient is also acutely withdrawing from alcohol and has been placed on CIWA protocol and currently is scoring a 15. We will continue to monitor. At this time the patient's CIWA score is are not currently stable and the patient is not eating a full meal. Once the patient's CIWA scores are more stable and the patient is able to eat a full meal and his hemoglobin and hematocrit stabilized and he will be ready for discharge. Resuscitation Status: CPR: Attempt Resuscitation Odalys Carrillo DO Sep 21, 2016 16:04
--- NOTE | 2016-09-21 23:12 | PROG NOTE ---
[address] [address] PROGRESS NOTE PATIENT: DARRON FERREIRA : 1965 MR#: [id number] ADMIT: 09/19/2016 JOB ID: [id number] DATE: 09/21/2016 SUBJECTIVE: The patient had a little more very small volume dark bowel movement today. He has not had any vomiting, although he does not feel hungry and is having some low down ill-defined abdominal discomfort. The patient reports his right inguinal hernia into his scrotum is perhaps a little worse than usual, and I have encouraged him to support his scrotum while lying in bed with a folded washcloth. OBJECTIVE: Vitals are stable. The patient is in no distress. Alert, oriented, appropriate, cooperative. LABORATORY DATA: White count 5.5, hemoglobin 8. Platelets 106. The bilirubin is 3.3. Creatinine 0.47. ASSESSMENT AND RECOMMENDATIONS: A 51-year-old male with alcoholic cirrhosis who presented with gastrointestinal bleeding related to Philly-Ryder tear. He is on oral proton pump inhibitor at this point. He would be due antibiotics for two more days. He continues to have intermittent cough and has been infected with the Weiner virus. It is a little unclear why he overall feels so poorly and has not been eating as normally as he might at his baseline. Will continue to monitor. At this point it, however, does not appear as though he is having any ongoing active bleeding.
[2016-09-22] MEDS: Ondansetron 2 mg/mL 2 mL Inj IVPUSH PRN (00:03)
[2016-09-22 03:25] VITALS: BP 94/60; PULSE 77; RESP 20; O2SAT 98
[2016-09-22 07:30] VITALS: BP 96/59; PULSE 83; RESP 26; O2SAT 95
[2016-09-22] MEDS: Pantoprazole 40 mg ER24 Tablet PO SCH ×2 (07:46→16:53)
[2016-09-22] MEDS: Multivit-Miner-Folic Acid-Iron Tablet PO SCH (07:46)
[2016-09-22 08:00] VITALS: PULSE 93
[2016-09-22 10:18] LABS: BASOPHILS % (AUTO) 0.4 % (0-3); EOSINOPHILS % (AUTO) 1.6 % (0-5); Mean Corpuscular Volume 87.9 fL (81-100); Platelet Count 112 bil/L (150-400)
[2016-09-22 10:41] LABS: INR 1.38 ratio
[2016-09-22 12:34] VITALS: BP 101/66; PULSE 83; RESP 20; O2SAT 96
--- NOTE | 2016-09-22 12:45 | PCM.PNMED ---
Subjective Date of Service Sep 22, 2016 Subjective Patient was seen and examined. The patient states that his abdominal pain has improved, and denies any chest pain and diarrhea. Patient states that he is still having bouts of nausea and dry heaving over night but was able to tolerate his breakfast this morning. Exam Vital Signs Vital Sign - Last Date Time Temp Pulse Resp B/P Pulse Ox O2 Delivery O2 Flow Rate FiO2 09/22/16 12:34 37.0 83 20 101/66 96 Room Air 09/19/16 17:10 4 Intake and Output 09/21/16 09/21/16 09/22/16 Cumulative From/Thru 15:00 23:00 07:00 09/19/16 13:26 - 09/22/16 06:17 Intake Total 1560 ml 400 ml 86283 ml Output Total 2100 ml 650 ml 6450 ml Balance -540 ml -250 ml 4732 ml Intake Oral 1500 ml 400 ml 4113 ml IV Total 60 ml 0 ml 7069 ml Output Urine Total 2100 ml 650 ml 4500 ml Urine/Stool Mix 1650 ml Emesis 300 ml # Voids 2 3 # Bowel Movements 7 Exam Physical Exam: GEN: Patient was awake, alert, responding appropriately to questions HEENT: PERRLA, EOMI, Neck soft supple, trachea midline, nomocephalic/atraumatic CV: +S1/S2, RRR, no murmurs auscultated Respiratory: CTAB, no wheezes, rales, rhonchi GI: +bowel sounds x4, soft, compressible, non TTP EXT: no c/c/e Neuro: CN II-XII grossly intact Psych: mood and affect were appropriate IVs and Medications Medications Reviewed: Medications were reviewed in detail Medications Current Medications Benzonatate 100 mg TID PRN PO Last administered on 09/22/16t 00:04; Admin Dose 100 MG; Start 09/21/16 at 14:15 Lab and Diagnostics Result Diagram: 09/22/16 1014 09/22/16 1014 Assessment & Plan 51-year-old male with a history of cirrhosis, thrombocytopenia, history of upper GI bleed secondary to esophageal varices who presented with the complaint of black stools and abdominal pain with nausea and vomiting. Upper GI bleed, acute, present on admission -GI performed endoscopy which showed nonbleeding Philly-Ryder tear, nonbleeding distal esophageal varices, no evidence of active bleeding however moderately full of old blood. -Continue Protonix 40 twice a day as per recommendations by GI - Continue ceftriaxone 1 more days -IV octreotide has been discontinued -We will continue to follow hemoglobin and hematocrit -Continue IV fluids -Patient is on clear diet will advance as tolerated -Stool cultures positive for blood -Patient may need colonoscopy will discuss with GI Acute microcytic anemia -Hemoglobin 8.0 today -At this point GI is not concerned that the patient currently bleeding and the labs are just not reflecting the previous bleed. -We will continue to monitor Alcoholic cirrhosis, chronic, present on admission -Currently does not appear encephalopathic. We will continue to monitor -Encouraged alcohol abstinence History of EtOH abuse, acute on chronic, present on admission -CIWA protocol and place current scores of 0 - Continue thiamine and folic acid -We will continue to monitor History of URI present on admission -Fluid culture negative -Viral PCR positive for coronal virus -Continue supportive therapy -Tessalon Perles when necessary for cough DVT prophylaxis: SCDs CODE STATUS: Full code Disposition: Patient's H&H is now improving. Patient's current H&H is 8.6 up from 8.0 yesterday. The patient seems to be tolerating his diet although he does still have some coughing and nausea overnight but this may be secondary to his current rhinovirus infection. Patient still needs 1 more dose of IV antibiotics as recommended by GI. As always the patient remained stable then he should be able to be discharged home tomorrow. Resuscitation Status: CPR: Attempt Resuscitation Odalys Carrillo DO Sep 22, 2016 12:45
[2016-09-22] MEDS: cefTRIAXone Inj 1,000 MG in Dextrose 5% Minibag Plus 50 ML IV SCH (15:04)
--- NOTE | 2016-09-22 18:08 | PROG NOTE ---
[address] [address] PROGRESS NOTE PATIENT: DARRON FERREIRA : 1965 MR#: [id number] ADMIT: 09/19/2016 JOB ID: [id number] DATE: SUBJECTIVE: The patient feels improved today. No bowel movements. He is more tolerant of p.o. He is still having quite a bit of coughing and feels as though he has sinus drainage that initiates the cough. OBJECTIVE: The patient is in no distress. Alert, oriented, appropriate, cooperative, conversational. Blood pressure 101/66, pulse 83, breathing 20, temperature 37.0, 96% on room air. LABORATORY DATA: White count 6.7, hemoglobin 8.6, platelets 112. INR 1.38. Bilirubin is down to 2.6. Creatinine 0.57. Albumin is 2.7. ASSESSMENT AND RECOMMENDATIONS: A 51-year-old male with alcohol-induced cirrhosis and a Philly-Ryder tear secondary to profound coughing in the face of a coronavirus infection. There is no evidence of any ongoing GI bleeding at present. I would recommend continuation of PPI. Continue to monitor for alcohol withdrawal. Continue therapy to treat the symptomatic viral infection and really attempt to minimize coughing symptoms.
[2016-09-22 20:00] VITALS: BP 102/68; PULSE 80; RESP 20; O2SAT 97
[2016-09-22 23:13] VITALS: BP 97/60; PULSE 88; RESP 18; O2SAT 95
[2016-09-23 04:34] VITALS: BP 94/56; PULSE 85; RESP 18; O2SAT 95
[2016-09-23 04:57] LABS: Mean Corpuscular Hemoglobin 29.2 pg (27.0-35.0); Mean Corpuscular Volume 87.8 fL (81-100)
[2016-09-23 05:08] VITALS: PULSE 87
[2016-09-23 07:41] VITALS: BP 103/64; PULSE 80; RESP 20; O2SAT 96
[2016-09-23] MEDS: Pantoprazole 40 mg ER24 Tablet PO SCH (07:46)
[2016-09-23] MEDS: Multivit-Miner-Folic Acid-Iron Tablet PO SCH (07:46)
[2016-09-23 08:44] VITALS: PULSE 87
--- NOTE | 2016-09-23 10:27 | PCM.DIMED ---
Discharge Instructions Date of Service Sep 23, 2016 Dates of Hospitalization Sep 19, 2016 at 17:49 Discharge Diagnosis Discharge Diagnosis Acute Upper GI bleed Acute microcytic anemia Upper respiratory infection secondary to Weiner virus Alcoholic cirrhosis Alcohol withdrawal Medication Instructions For the nasal congestion please use a sinus rinse twice a day with warm bottled water once your symptoms have resolved then use this only once a day for one week and then you can stop usage after that. Diet Heart Healthy Activity Other (gradually return to normal daily activities) Call your provider Fever or Chills, Shortness of breath, Bleeding, Chest pain, Vomitting, Excessive diarrhea Patient Instructions Follow-up Provider: Omar Moralez MD Follow-up with PCP in: 1 week (if an appointment has not R even made with your primary please call to schedule an appointment) Provider: Heber Foss MD Follow-up in: 3 weeks (if an appointment has not already been made with her GI doctor please call to make an appointment) Odalys Carrillo DO Sep 23, 2016 10:26
[2016-09-23] MEDS ORDERED: BENZ100C8 PO (10:30)
[2016-09-23] MEDS ORDERED: PREN1TAB25 PO (10:30)
[2016-09-23] MEDS ORDERED: PANT40TA3 PO (10:30)
[2016-09-23] MEDS ORDERED: Thiamine PO (10:30)
--- NOTE | 2016-09-23 10:38 | PCM.DC.MED ---
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 Foss Procedures XRay, CTs & MRIs PROCEDURE: X-RAY CHEST ONE VIEW, PORTABLE ([id number]) INDICATIONS: cough TECHNIQUE: One view of the chest was acquired. COMPARISON: [facility], , CHEST 1VW (PORTABLE), 04/08/2013, 16:36. FINDINGS: Surgical changes and devices: None. Lungs and pleura: No pleural effusions or pneumothorax. Lungs are clear. Mediastinum: Mediastinal contours appear normal. Heart size is normal. Bones and chest wall: No suspicious bony lesions. Overlying soft tissues appear unremarkable. IMPRESSION: No acute cardiopulmonary disease. Dictated by: Sabino Carolina Barbie Interpreted: Gorge Gil MD on 09/20/2016 at 15:51 Transcribed by: ANTONINA on 09/20/2016 at 15:52 Approved by: Gorge Gil M.D. on 09/21/2016 at 9:35 Invasive Procedures PROCEDURE: Esophagogastroscopy. INDICATIONS: This is a 51-year-old male with hematemesis and melena of uncertain etiology. EQUIPMENT: Standard upper endoscope. SEDATION: Monitored anesthesia as provided by Dr. Tyree Burton. COMPLICATIONS: None identified. PROCEDURE INFORMATION: After the risks and benefits were explained, written and verbal informed consent was obtained. The patient was brought into the endoscopy suite and placed into the left lateral decubitus position. Sedation was achieved as above. The scope introduced into the mouth through the bite block and advanced under direct visualization through the oropharynx, esophagus, down into the proximal stomach. We encountered a moderate amount of black dark blood clot debris. No fresh blood anywhere. We did not traverse any further in light of the large volume of dark blood seen. Additionally, the likely culprit lesion was seen. The scope was ultimately removed after decompressing the stomach. The scope was withdrawn from the patient who tolerated the procedure well. FINDINGS: 1. Duodenum: Not examined today. 2. Stomach: The patient had no evidence of any red blood. There was old blood in clot form seen within the lumen. No gastric varices apparent. 3. Esophagus: Again, the patient had evidence of grade 1 to grade 2 distal esophageal varices without stigmata of recent bleeding and no significant high-risk areas. However, right at the GE junction, there was evidence of an ulcerated area consistent with healing Philly-Ryder tear. There was no evidence of any oozing or active bleeding at present and we therefore elected to not pursue any direct intervention at present. ENDOSCOPIC DIAGNOSES: 1. Nonbleeding Philly-Ryder tear. 2. Nonbleeding distal esophageal varices. 3. No evidence of active bleeding. Stomach moderately full of old blood. RECOMMENDATIONS: 1. Clear liquid diet. 2. Stop octreotide. 3. Continue PPI drip until tomorrow morning and then convert over to b.i.d. Protonix therapy (this has been ordered). 4. Continue antibiotics for the next four more days. 5. I would defer to the primary service as to the workup for his cough x2 weeks. It sounds like he needs at least a chest x-ray. 6. The patient has resumed alcohol, and I am not sure how long he has actually been drinking. He therefore is once again at risk for withdrawal and should be monitored accordingly. Heber Foss MD 09/19/16 9374 Brief History This is a 51-year-old male with a history of cirrhosis,. Thrombocytopenia history of upper GI bleed secondary to esophageal varices who comes in complaining of black stool over the past several days he also notes over the past days been having some vomiting and noticed some blood. There was an episode of vomitus of bright red blood in the emergency room 1. GI was notified regarding this patient. Patient does admit to having no alcohol over the past few months but over the past few days was drinking alcohol. He is somewhat vague as to the amount. He denies any abdominal pain. Nausea any fevers or chills. The emergency room was noted to be tachycardic to 131 sinus. Does admit to having some lightheadedness over the past 2 days. He did have an EGD done September 12 and report of this is as below: PROCEDURE: Esophagogastroduodenoscopy. INDICATIONS: A 51-year-old male who reports for variceal screening. EQUIPMENT: Pressly. SEDATION: Monitored anesthesia as provided by Dr. Carlos Alberto Hernandez. COMPLICATIONS: None identified. PROCEDURE INFORMATION: After the risks and benefits were explained, written and verbal informed consent was obtained. The patient was brought into the endoscopy suite and placed into the left lateral decubitus position. Sedation was achieved using the above-stated medications with the addition of oxygen via nasal cannula. The scope was introduced into the mouth through the bite block and advanced under direct visualization to the level of the second portion of the duodenum. The scope was slowly withdrawn to carefully examine the mucosa for any defects or lesions. Retroflexed views were accomplished in the stomach, the stomach was decompressed, and the scope removed from the patient who tolerated the procedure reasonably well. FINDINGS: 1. Duodenum: The mucosa appeared normal from the bulb through to the second portion. 2. Stomach: Nonspecific diffuse portal hypertensive gastropathy was noted. No mass lesions. No ulcers. No outlet obstruction. No obvious gastric varices, including retroflexed views of the LES. 3. Esophagus: The squamocolumnar junction correlated with the top of the gastric folds. The GEJ was at 42 cm from the incisors. In the distal esophagus there was evidence of grade 1 and at most grade 2 distal esophageal varices, without stigmata of recent bleeding, and no significant high-risk areas apparent. ENDOSCOPIC DIAGNOSES: 1. Grade 1 to grade 2 distal esophageal varices. 2. Portal hypertensive gastropathy. RECOMMENDATIONS: Repeat EGD for variceal surveillance in two years. Heber Foss MD 09/12/16 1121 Report status: Draft Transcribed by: SAIMA 09/12/16 1335 REPORT#: [id number] cc: Omar Moralez MD; Heber Foss MD Hospital Course 51-year-old male with a history of cirrhosis, thrombocytopenia, history of upper GI bleed secondary to esophageal varices who presented with the complaint of black stools and abdominal pain with nausea and vomiting. Patient presented with an upper GI bleed. The patient was taken for an endoscopy and found to have nonbleeding Philly-Ryder tears, nonbleeding distal esophageal varices, no evidence of active bleeding however the stomach was moderately full of old blood. Patient's octreotide was stopped but placed on Protonix twice a day. IV fluids were continued and the patient then was placed on a clear liquid diet and we will begin to advance patient's diet as tolerated. The patient had some difficulty with nausea and vomiting however this is currently under control and the patient is able to tolerate a full diet. The patient also was diagnosed with a microcytic anemia and had positive stool cultures for blood. This was most likely secondary to the blood that was found in the stomach that was processing through the system. The patient's hemoglobin and hematocrit did drop however his hemoglobin and hematocrit did start to trend upwards. The patient was placed on CIWA protocol for alcohol withdrawal as the patient has recently started drinking again. It was stressed to the patient the importance of him not drinking anymore due to the fact that he has esophageal varices and Philly-Ryder tears along with cirrhosis. The patient CIWA scores on discharge were 0. The patient is encouraged to continue the multivitamin with folic acid and thiamine. The patient has been having cough and URI symptoms for last few weeks this is secondary to the weiner virus infection. The patient has been treated with supportive therapy and will go home with Elvis Soto for the cough. Patient states that he has been having a lot of mucus drainage which she feels is causing the soreness in his throat. Has been recommended to the patient to use sinus rinse as this will help with the mucus drainage. Patient may also continue to use Mucinex. The patient is being discharged home in stable condition. Upper GI bleed, acute, present on admission -GI performed endoscopy which showed nonbleeding Philly-Ryder tear, nonbleeding distal esophageal varices, no evidence of active bleeding however moderately full of old blood. -Continue Protonix 40 twice a day as per recommendations by GI - Continue ceftriaxone 1 more days -IV octreotide has been discontinued -We will continue to follow hemoglobin and hematocrit -Continue IV fluids -Patient is on clear diet will advance as tolerated -Stool cultures positive for blood -Patient may need colonoscopy will discuss with GI Acute microcytic anemia -Hemoglobin 8.0 today -At this point GI is not concerned that the patient currently bleeding and the labs are just not reflecting the previous bleed. -We will continue to monitor Alcoholic cirrhosis, chronic, present on admission -Currently does not appear encephalopathic. We will continue to monitor -Encouraged alcohol abstinence History of EtOH abuse, acute on chronic, present on admission -CIWA protocol and place current scores of 0 - Continue thiamine and folic acid -We will continue to monitor History of URI present on admission -Fluid culture negative -Viral PCR positive for coronavirus -Continue supportive therapy -Tessalon Perles when necessary for cough DVT prophylaxis: SCDs CODE STATUS: Full code Exam Vital Signs (Last) Date Time Temp Pulse Resp B/P Pulse Ox O2 Delivery O2 Flow Rate FiO2 09/23/16 08:44 87 09/23/16 07:41 36.6 20 103/64 96 Room Air 09/19/16 17:10 4 Exam Physical Exam: GEN: Patient was awake, alert, responding appropriately to questions HEENT: PERRLA, EOMI, Neck soft supple, trachea midline, nomocephalic/atraumatic CV: +S1/S2, RRR, no murmurs auscultated Respiratory: CTAB, no wheezes, rales, rhonchi GI: +bowel sounds x4, soft, compressible, non TTP EXT: no c/c/e Neuro: CN II-XII grossly intact Psych: mood and affect were appropriate Test 09/19/16 13:43 09/19/16 16:17 09/20/16 04:30 09/22/16 10:14 Ammonia 118ug/dL (18-53) Alcohol, Quantitative 92mg/dL (0-10) Hemoglobin A1c 5.0% (4.8-5.6) Troponin T < 0.010ug/L (0.0-0.011) Lactic Acid Level 1.6mmol/L (0.4-2.0) Neutrophils (%) (Auto) 70.0% (40-74) Lymphocytes (%) (Auto) 15.9% (14-46) Monocytes (%) (Auto) 12.0% (4-12) Eosinophils (%) (Auto) 1.6% (0-5) Basophils (%) (Auto) 0.4% (0-3) Prothrombin Time 14.9sec (8.1-12.5) Prothromb Time International Ratio 1.38ratio Total Bilirubin 2.6mg/dL (0.0-1.2) Aspartate Amino Transf (AST/SGOT) 48U/L (0-50) Alanine Aminotransferase (ALT/SGPT) 16U/L (0-44) Alkaline Phosphatase 96U/L (25-150) Total Protein 5.3g/dL (6.4-8.4) Albumin 2.7g/dL (3.4-5.0) Test 09/23/16 04:35 White Blood Count 7.7th/mm3 (3.8-10.1) Red Blood Count 2.88mil/mm3 (4.40-5.80) Hemoglobin 8.4g/dL (13.8-17.2) Hematocrit 25.3% (41.0-50.0) Mean Corpuscular Volume 87.8fL (81-100) Mean Corpuscular Hemoglobin 29.2pg (27.0-35.0) Mean Corpuscular Hemoglobin Concent 33.2% (32.0-37.0) Red Cell Distribution Width 19.2% (12.3-15.4) Platelet Count 119bil/L (150-400) Sodium Level 135mEq/L (134-144) Potassium Level 3.9mEq/L (3.5-5.2) Chloride Level 103mEq/L (97-108) Carbon Dioxide Level 23mmol/L (18-29) Blood Urea Nitrogen 8mg/dL (6-24) Creatinine 0.49mg/dL (0.76-1.27) Estimat Glomerular Filtration Rate 191mL/min (>59) Glucose Level 101mg/dL (60-99) Calcium Level 7.8mg/dL (8.5-10.1) Discharge Medications Discharge Medications ([Thiamine]) 100 MG TABLET 100 MG PO DAILY Prescribed by: ODALYS CARRILLO DO Pantoprazole (Pantoprazole ) 40 Mg Tablet. 40 MG PO BIDAC Prescribed by: ODALYS CARRILLO DO Vit#96/Ferrous Fum/FA ( Tablet) 1 Each Tablet 1 TABLET PO DAILY Prescribed by: ODALYS CARRILLO DO As needed Benzonatate (Benzonatate) 100 Mg Capsule 100 MG PO TID PRN PRN For Cough Prescribed by: ODALYS CARRILLO DO Additional med instructions For the nasal congestion please use a sinus rinse twice a day with warm bottled water once your symptoms have resolved then use this only once a day for one week and then you can stop usage after that. Followup Plan Discharge Diet: Heart Healthy Discharge Activity: Other Follow-up Provider: Omar Moralez MD Follow-up with PCP in: 1 week Provider: Heber Foss MD Follow-up in: 3 weeks Time spent Greater than 35 minutes Odalys Carrillo DO Sep 23, 2016 10:38
--- NOTE | 2016-09-23 13:33 | PROG NOTE ---
[address] [address] PROGRESS NOTE PATIENT: DARRON FERREIRA : 1965 MR#: [id number] ADMIT: 09/19/2016 JOB ID: [id number] DATE: SUBJECTIVE: The patient overall doing well this morning. No recurrent bleeding. OBJECTIVE: Vital signs are stable. Blood pressure 103/64, pulse 80, breathing 20, temperature 36.6, 96% on room air. The patient was conversational, alert, oriented. LABORATORY DATA: Hemoglobin 8.4, platelets 119, white count 7.7. Creatinine 0.49. Bilirubin was not accomplished today. ASSESSMENT AND PLAN: A 51-year-old male with alcoholic cirrhosis and portal hypertension, who experienced a Philly-Ryder tear in the face of coronavirus induced chronic coughing fits and sneezing. Overall he is clinically improved and appears stable for discharge home. I agree with b.i.d. PPI for now. Otherwise, the patient can continue his home medications. I have requested a follow up in my office in approximately two weeks time with the blood work before the visit.
[2016-09-23] MEDS: cefTRIAXone Inj 1,000 MG in Dextrose 5% Minibag Plus 50 ML IV SCH (14:04)
== END 2016-09-23 14:49 | disposition home or self-care (01) | DRG 370 ==
LOC: EDUNIT# 13:07 → EDBD 13:07 → SED 13:07 → END 15:41 → SED 15:47 → END 15:52 → PCC 17:49
PROVIDERS: ADMIT Specialist; ATTEND Specialist
PROC: 0DJ68ZZ Inspection of Stomach, Via Natural or Artificial Opening Endoscopic (ICD-10-PCS; principal; 2016-09-19 15:00)
DX: K22.6 Gastro-esophageal laceration-hemorrhage syndrome (principal); K70.30 Alcoholic cirrhosis of liver without ascites; F17.210 Nicotine dependence, cigarettes, uncomplicated; F10.129 Alcohol abuse with intoxication, unspecified; B97.29 Other coronavirus as the cause of diseases classified elsewhere; D50.9 Iron deficiency anemia, unspecified; Y90.4 Blood alcohol level of 80-99 mg/100 ml; I85.00 Esophageal varices without bleeding; J06.9 Acute upper respiratory infection, unspecified

== ENCOUNTER 2017-02-22 19:54 | Inpatient (IN) | payer OTHER ==
[~2017-02-22] VITALS: Ht 177.8 cm; Wt 130.4 kg
[~2017-02-22 19:54] MED LIST changes: +BENZ100C8 PO; -FURO-129 PO; +PANT40TA3 PO; +PREN1TAB25 PO; -SPIR50TA2 PO; +Thiamine PO
[2017-02-22 19:59] VITALS: BP 107/59; PULSE 117; RESP 15; O2SAT 100
[2017-02-22] MEDS ORDERED: 0.9% Sodium Chloride 1,000 ML IV ONE (20:02)
--- NOTE | 2017-02-22 20:02 | ED.REPORT ---
HPI-GI Bleed Date of Service Feb 22, 2017 ED Provider: Abdiel Suero MD Pt is a 52 y/o male w/ a hx of alcoholic cirrhosis, known esophageal varices, previous episodes of GI bleeding, presenting to the ED c/o hematemesis onset 15: 00 today. He has experiencing 4 episodes of vomiting with mild amounts of dark red blood (about less than 1 cup total). At one point he was lightheaded and dizzy but currently while lying flat he is doing better. He recently started drinking alcohol again 3 days ago at an amount of about 6 beers each day. He denies current withdrawal. He c/o associated mild sharp periumbilical abdominal pain. The patient only takes 2 medications which are furosemide and spironolactone. Pt denies CP, SOB. The patient was recently admitted to [facility] from Sep 19-2016 due to upper GI bleed at which time upper endoscopy revealed a stomach which was moderately full of blood with no actively bleeding distal esophageal varices, Philly-Ryder tear was noted. The patient was placed on CIWA protocol during admission. Nursing Notes Stated Complaint: VOMITING BLOOD Chief Complaint: Male Abdominal Pain Nursing Notes Reviewed: Yes Allergies: Coded Allergies: No Known Drug Allergies (Verified Allergy, Unknown, 02/22/17) Scheduled Furosemide (Furosemide) 40 Mg Tablet 40 MG PO DAILY Spironolactone (Spironolactone) 100 Mg Tablet 100 MG PO DAILY General Time Seen by Provider: 20:08 Chief Complaint Chief Complaint: Vomiting blood Bleeding Severity: Minimal Hx Obtained From: Patient, EMS Arrived By: Ambulance Onset Occurred: 5 - 8 hours ago Symptom Duration: Intermittent Progression Since Onset: Intermittent Location: : Suprapubic Quality: Painful Severity: Current: Mild Severity: Maximum: Mild Past Medical History Past Medical History Notes: GI: [place] Past Medical History Portal hypertension Coagulopathy Thrombocytopenia Cirrhosis Acute upper GI bleed secondary to esophageal varices 05/25 Medication non-compliance due to inability to afford them Respiratory failure w/ intubation (difficult intubate) Arthritis in hands Back injury Depression Past Surgical History Multiple upper endoscopy, with banding of varices Knee surgery R hand Family History Noncontributory Smoking History Light Tobacco Smoker Social History Alcohol Use: 3-5 per day Other Social History: Local resident Ambulatory Status Independent Review of Systems Constitutional: Denies: Chills, Fever Respiratory: Denies: Shortness of breath Cardiovascular: Denies: Chest pain GI: Reports: Abdominal pain, Hematemesis, Nausea, Vomiting Neurologic: Reports: Dizziness, Lightheaded Complete sys rev & neg: except as marked. Physical Exam Initial Vital Signs Vital Signs (First) Date Time Temp Pulse Resp B/P Pulse Ox O2 Delivery O2 Flow Rate FiO2 02/22/17 19:59 36.6 117 15 107/59 100 Room Air Initial VS: Reviewed, Vital signs abnormal Head / Eyes: Atraumatic, Normocephalic, PERRL Neck: Supple, Full range of motion Extremities: Vascular intact, Neuro intact, No swelling Skin: Warm, Dry, No cyanosis Psychiatric: Mood/affect normal, Behavior normal, Normal thought content General/Constitutional: Awake, Alert, No acute distress, Cooperative, Not toxic appearing Respiratory / Chest: Breath sounds NL, Breath sounds = bilat, No respiratory distress, No rales, No rhonchi, No wheezing Cardiovascular: Regular rhythm, Heart sounds NL, No gallop, No murmurs, No rubs , Cap refill not delayed, Peripheral circulation NL Heart Rate / Rhythm: Positive: Tachycardia Abdomen: Atraumatic, Soft, Non-tender, No guarding, No rebound, No distention, No palpable mass No active vomiting ENT: Atraumatic, Airway patent Mouth: Positive: Mucous membranes dry Skin Skin: Atraumatic, Warm, Dry Color / Condition: Positive: Jaundice present (mild) Interpretation & Diagnostics Lab Results Interpretation Result Diagram: 02/22/17200502/22/172005 Test 02/22/17 20:06 02/22/17 21:01 Neutrophils (%) (Auto) 62.8% (40-74) Lymphocytes (%) (Auto) 17.1% (14-46) Monocytes (%) (Auto) 18.7% (4-12) Eosinophils (%) (Auto) 0.7% (0-5) Basophils (%) (Auto) 0.5% (0-3) Prothrombin Time 15.4sec (8.1-12.5) Prothromb Time International Ratio 1.43ratio Sodium Level 133mEq/L (134-144) Potassium Level 4.1mEq/L (3.5-5.2) Chloride Level 99mEq/L (97-108) Carbon Dioxide Level 18mmol/L (18-29) Blood Urea Nitrogen 23mg/dL (6-24) Creatinine 0.66mg/dL (0.76-1.27) Estimat Glomerular Filtration Rate 135mL/min (>59) Glucose Level 174mg/dL (60-99) Calcium Level 8.8mg/dL (8.5-10.1) Total Bilirubin 5.1mg/dL (0.0-1.2) Direct Bilirubin 1.6mg/dL (0.0-0.3) Aspartate Amino Transf (AST/SGOT) 62U/L (0-50) Alanine Aminotransferase (ALT/SGPT) 21U/L (0-44) Alkaline Phosphatase 113U/L (25-150) Total Protein 6.2g/dL (6.4-8.4) Albumin 2.9g/dL (3.4-5.0) Lipase 25U/L (13-60) Procalcitonin 0.11ng/mL (0.00-0.08) Hold Blue Top Tube Received (Received) ECG Interpretation ECG Interpretation: Sinus tachycardia rate 119 LAFB Compared to prior dated 09/19/16 there are no acute changes Time: 20:13 Interpreted by: ED physician Normal ECG Interpretation: No acute ischemic changes, Normal axis, Normal intervals, No change from prior ECGs Re-Eval/Medical Decision Med Decision/Clinical Course Pt is a 52 y/o male w/ a hx of alcoholic cirrhosis, known esophageal varices, previous episodes of GI bleeding, presenting to the ED c/o hematemesis onset 15: 00 today. He has experiencing 4 episodes of vomiting with mild amounts of dark red blood (about less than 1 cup total). At one point he was lightheaded and dizzy but currently while lying flat he is doing better. He recently started drinking alcohol again 3 days ago at an amount of about 6 beers each day. He denies current withdrawal. He c/o associated mild sharp periumbilical abdominal pain. The patient only takes 2 medications which are furosemide and spironolactone. Pt denies CP, SOB. The patient was recently admitted to [facility] from Sep 19-2016 due to upper GI bleed at which time upper endoscopy revealed a stomach which was moderately full of blood with no actively bleeding distal esophageal varices, Philly-Ryder tear was noted. The patient was placed on CIWA protocol during admission. Here in the emergency department the patient is tachycardic though otherwise hemodynamically stable. Shortly after his arrival in the emergency department he vomited up about 200 mL of georgette blood. 2 large-bore IVs were obtained and I administered a fluid bolus. He was placed on pantoprazole bolus and infusion as well as octreotide bolus and infusion. He was given Zofran for nausea. He was placed on CIWA protocol. While he has had some abdominal discomfort intermittently his abdominal examination is relatively reassuring against any acute surgical process. I do not feel that imaging studies are immediately indicated given the patient's more imminent problem of active GI bleeding. Patient was discussed with Dr. Garces (GI) who agrees to evaluate the patient and assist in management. Labs notable as below: CBC: leukocytosis of 11.7, HCT of 25.2 stable from prior Coag studies: INR of 1.43 CMP: unremarkable except total bili of 5.1 increased from baseline, albumin of 2.9, transaminases within normal limits After treatment as above patient stabilized and remained without any hypotension. He had no ongoing active GI bleeding. Patient was discussed with hospitalist has been admitted to the intensive care unit and consultation with GI for further management. Source of Hx: Old records, EMS Re-Evaluation/Progress : Time of Eval: 21:13 Re-Evaluation/Progress Note: Pt rechecked. Vomited about 250 mL blood while in ED per RN. Informed pt of need for admission. Pt understands and agrees with plan for admission. All questions addressed. Consultation #1: Referral / Consult Name: Elsie Márquez MD Call Returned at: 21:13 Medical Device Engineer: Will see patient, Agrees with eval, Agrees with plan Note: Case discussed with GI. Recommends Ceftriaxone and Vitamin K. Consultation #2: Referral / Consult Name: Shelley Machuca MD Consulted With: Hospitalist Call Returned at: 21:32 Medical Device Engineer: Will see patient, Agrees with eval, Agrees with plan, Accepts admit Counseled Regarding: Diagnosis, Lab results, Need for admission Discharge & Departure Impression: Primary Impression: Upper GI bleed Additional Impressions: Alcoholic cirrhosis Ascites presence: without ascites Qualified Code: K70.30 - Alcoholic cirrhosis of liver without ascites H/O esophageal varices Hematemesis Nausea presence: with nausea Qualified Code: K92.0 - Hematemesis Disposition: ADMITTED TO HOSPITAL Discharge Condition All VS Reviewed: Yes Condition: Stable Referrals: Heber Foss MD (PCP) Crit Care Except Billable Proc Time Spent: 75-104 minutes Services Performed: Patient management by me, Time spent at bedside, Reviewing test results, Reviewing imaging, Discussing patient care, Documentation in record Scribe Attestation Portions of this note were transcribed by Morgan Walker. I, Dr. Suero, personally performed the history, physical exam and medical decision-making; I reviewed and confirmed the accuracy of the information in the transcribed note. Signed by Wily Osorio, 02/22/17 - 2029 copies to: Heber Foss MD, Beck O MD Feb 22, 2017 20:02 MORGAN WALKER Feb 22, 2017 20:08 Abdiel Suero MD Feb 22, 2017 20:02 MORGAN WALKER Feb 22, 2017 20:08
[2017-02-22] MEDS ORDERED: SPIR100T3 PO (20:06)
[2017-02-22] MEDS ORDERED: FURO40TA4 PO (20:06)
[2017-02-22 20:09] LABS: BASOPHILS % (AUTO) 0.5 % (0-3); EOSINOPHILS % (AUTO) 0.7 % (0-5); MONOCYTES % (AUTO) 18.7 % (4-12)
[2017-02-22 20:15] LABS: Mean Corpuscular Hemoglobin 22.2 pg (27.0-35.0); Mean Corpuscular Volume 73.7 fL (81-100); NEUTROPHILS % (AUTO) 62.8 % (40-74); Platelet Count 147 bil/L (150-400)
[2017-02-22] MEDS ORDERED: Ondansetron 2 mg/mL 2 mL Inj IVPUSH PRN ×2 (20:20→22:00)
[2017-02-22] MEDS ORDERED: Pantoprazole 4 mg/mL 10 mL Inj IVPUSH ONE (20:20)
[2017-02-22] MEDS ORDERED: Pantoprazole Inj 80 MG, Pharmacy To Mix 1 EA in 0.9% Sodium Chloride 80 ML IV ONE ×2 (20:20)
[2017-02-22] MEDS ORDERED: Alum-Mag Hydrox-Simeth 30 mL Suspension PO PRN (20:20)
[2017-02-22] MEDS ORDERED: Octreotide Inj 500 MCG in 0.9% Sodium Chloride 100 ML IV ONE (20:20)
[2017-02-22] MEDS ORDERED: Ondansetron 2 mg/mL 2 mL Inj IVPUSH ONE (20:20)
[2017-02-22 20:23] LABS: INR 1.43 ratio
[2017-02-22 20:33] VITALS: BP 102/66; PULSE 121; RESP 22; O2SAT 100
[2017-02-22 21:08] VITALS: BP 105/64; PULSE 114; RESP 21; O2SAT 100
[2017-02-22] MEDS ORDERED: Phytonadione (Adult) 10 MG in Dextrose 5%-Pha MIX 50 ML IV ONE (21:15)
[2017-02-22] MEDS ORDERED: cefTRIAXone Inj 1,000 MG in Dextrose 5% Minibag Plus 50 ML IV ONE (21:15)
[2017-02-22 21:30] VITALS: BP 103/65; PULSE 115; RESP 23; O2SAT 99
[2017-02-22] MEDS ORDERED: 0.9% Sodium Chloride 500 ML IV PRN (21:58)
[2017-02-22 22:00] VITALS: BP 100/62; PULSE 115; RESP 21; O2SAT 100
[2017-02-22] MEDS ORDERED: Thiamine Inj 100 MG, Folic Acid Inj 1 MG, Magnesium Sulfate 50% Inj 2 GM, Multivitamins... IV ONE ×5 (22:10)
[2017-02-22 22:58] LABS: Mean Corpuscular Hemoglobin 22.8 pg (27.0-35.0)
[2017-02-22 23:30] VITALS: BP 95/59; PULSE 116; RESP 26; O2SAT 98
[2017-02-22] MEDS ORDERED: 0.9% Sodium Chloride 250 ML IV PRN (23:30)
--- NOTE | 2017-02-22 23:59 | PCM.HPMED ---
Subjective Date of Service Feb 22, 2017 Primary Provider: Admitting Physician: Shelley Machuca MD Primary Care Physician: Omar Moralez MD Attending Physician: Shelley Machuca MD Admit Status: From the Emergency Department Chief Complaint: Nausea and hematemesis and melena History of Present Illness: The patient Miguel Turner is a 52-year-old male with past medical history remarkable for cirrhosis with portal hypertension and esophageal varices with repeated upper GI bleeds who presents with 1 day of hematemesis and melena. The patient states that for the last 3 days he has been suffering from significant nausea with repeated episodes of vomiting. The patient denies violent retching however. Today the patient noticed that since early afternoon he was started up approximately 4 times with bright red blood and partially digested blood approximately 1 cups worth. The patient states that today he also began noticing diarrhea with dark tarry stool. The patient is followed by GI specialist Dr. Guallpa as an outpatient given his recurrent upper GI bleeds the last in August 2016 due to mild Phil[place]-Ryder tear. The patient has had significant GI bleeds in the past requiring up to 7 units of blood due to ruptured esophageal varices requiring emergent EGD banding. The patient states that after his August 2016 hospitalization he stopped drinking briefly however began drinking in November and has been drinking at least 6 beers a day for the last 3 months. The patient states that he stopped drinking 3 days ago when he began to feel nauseous. The patient denies serious withdraws. The patient denies any shortness of breath or chest pain. He is noticed some chills and abdominal pain which is worse with deep palpation and ingestion of water. Review of Systems: A comprehensive review of systems was obtained and all are negative except for what is included in the history of present illness. Allergies Coded Allergies: No Known Drug Allergies (Verified Allergy, Unknown, 02/22/17) Home Medications Furosemide 40 mg daily Spironolactone 100 mg daily PMH Portal hypertension Coagulopathy Thrombocytopenia Cirrhosis Acute upper GI bleed secondary to esophageal varices 05/25 Upper GI bleed secondary to Philly-Ryder tear August 2016 Medication non-compliance due to inability to afford them Respiratory failure w/ intubation (difficult intubate) Arthritis in hands Back injury Depression Surgical History Multiple upper endoscopies last done in August 2016 Arthroscopic knee surgery for meniscal repair Right hand surgery Family History Mother had a stroke in her 40s and has DM type 2 Brother Sister and mother have hypertension and hyperlipidemia Social History Occupation: currently unemployed Hx Alcohol Use: Yes (6 beers a day for the last 3 months) Hx Substance Use: No Hx Tobacco Use: Yes (OCCAS) Smoking Status: Light Tobacco Smoker Living Arrangement: Alone Exam Vital Signs Vital Sign - Last Date Time Temp Pulse Resp B/P Pulse Ox O2 Delivery O2 Flow Rate FiO2 02/22/17 22:00 115 21 100/62 100 Room Air 02/22/17 19:59 36.6 Exam General: Middle-age obese male in no acute distress lying comfortably in bed Eyes: Pupils equal round and reactive to light, extraocular motion intact, icteric sclera, noninjected conjunctiva HENT: Normocephalic atraumatic, moist mucous membranes without central cyanosis , oropharynx clear without purulent exudate or cobblestoning mucosa Neck: Supple, trachea midline, without thyromegaly or JVD, notable bilateral carotid upstroke Cardiovascular: Tachycardic regular rhythm, S1-S2 present, no S3-S4, without murmurs rubs or gallops noted Lungs: Mild coarse breath sounds bilaterally bilaterally without wheezing or rhonchi Abdomen: Soft, generally tender to palpation most notably in the left lower quadrant, nondistended, tympanic to percussion, normal active bowel sounds, without organomegaly Extremities: No cyanosis clubbing or edema noted, pulses intact bilaterally at dorsalis pedis and radial, large hematomas noted on dorsum of left forearm and ecchymosis on medial right calf : No Mayer catheter in place Skin: Warm and dry, notable papular non-erythematous rash on dorsum of hands bilaterally described as non-pruritic, patient states that he was picking blackberries one month prior MSK: Able move all extremities bilaterally Neuro: Nonfocal neurologic exam, sensation intact in extremities Psych: Normal mood and affect Lab and Diagnostics Labs Laboratory Tests 72 Hours Test 02/22/17 20:06 02/22/17 21:01 02/22/17 21:55 02/22/17 22:34 White Blood Count 11.7th/mm3 (3.8-10.1) 14.0th/mm3 (3.8-10.1) Red Blood Count 3.42mil/mm3 (4.40-5.80) 3.02mil/mm3 (4.40-5.80) Hemoglobin 7.6g/dL (13.8-17.2) 6.9g/dL (13.8-17.2) Hematocrit 25.2% (41.0-50.0) 22.0% (41.0-50.0) Mean Corpuscular Volume 73.7fL (81-100) 73fL (81-100) Mean Corpuscular Hemoglobin 22.2pg (27.0-35.0) 22.8pg (27.0-35.0) Mean Corpuscular Hemoglobin Concent 30.2% (32.0-37.0) 31.4% (32.0-37.0) Red Cell Distribution Width 21.1% (12.3-15.4) 20.5% (12.3-15.4) Platelet Count 147bil/L (150-400) 115bil/L (150-400) Neutrophils (%) (Auto) 62.8% (40-74) Lymphocytes (%) (Auto) 17.1% (14-46) Monocytes (%) (Auto) 18.7% (4-12) Eosinophils (%) (Auto) 0.7% (0-5) Basophils (%) (Auto) 0.5% (0-3) Prothrombin Time 15.4sec (8.1-12.5) Prothromb Time International Ratio 1.43ratio Sodium Level 133mEq/L (134-144) Potassium Level 4.1mEq/L (3.5-5.2) Chloride Level 99mEq/L (97-108) Carbon Dioxide Level 18mmol/L (18-29) Blood Urea Nitrogen 23mg/dL (6-24) Creatinine 0.66mg/dL (0.76-1.27) Estimat Glomerular Filtration Rate 135mL/min (>59) Glucose Level 174mg/dL (60-99) Calcium Level 8.8mg/dL (8.5-10.1) Total Bilirubin 5.1mg/dL (0.0-1.2) Direct Bilirubin 1.6mg/dL (0.0-0.3) Aspartate Amino Transf (AST/SGOT) 62U/L (0-50) Alanine Aminotransferase (ALT/SGPT) 21U/L (0-44) Alkaline Phosphatase 113U/L (25-150) Total Protein 6.2g/dL (6.4-8.4) Albumin 2.9g/dL (3.4-5.0) Lipase 25U/L (13-60) Procalcitonin 0.11ng/mL (0.00-0.08) Hold Blue Top Tube Received (Received) Ammonia 217ug/dL (18-53) Lactic Acid Level 2.2mmol/L (0.4-2.0) Alcohols < 10mg/dL (0-10) Test 02/23/17 01:15 02/23/17 03:30 02/23/17 03:40 02/23/17 04:00 Lactic Acid Level 2.4mmol/L (0.4-2.0) 2.4mmol/L (0.4-2.0) White Blood Count 10.3th/mm3 (3.8-10.1) Red Blood Count 2.97mil/mm3 (4.40-5.80) Hemoglobin 7.0g/dL (13.8-17.2) Hematocrit 22.1% (41.0-50.0) Mean Corpuscular Volume 74.4fL (81-100) Mean Corpuscular Hemoglobin 23.6pg (27.0-35.0) Mean Corpuscular Hemoglobin Concent 31.7% (32.0-37.0) Red Cell Distribution Width 20.5% (12.3-15.4) Platelet Count 97bil/L (150-400) Hold [place]osta Top Tube Received (Received) Result Diagram: 02/22/17 2234 02/22/172005 Assessment & Plan The patient Miguel Turner is a 52-year-old male with past medical history remarkable for cirrhosis with portal hypertension and esophageal varices with repeated upper GI bleeds who presents with 1 day of hematemesis and melena. # Acute blood loss anemia secondary to Acute Upper GI bleed - The patient describes 3 days of nausea and vomiting and one day of hematemesis approximately 1 cup of partially digested blood as well as 1 day history of dark and tarry stools - The patient has a history of esophageal varices secondary to cirrhosis with portal hypertension as well as Philly-Ryder tear - The patient was started on IV octreotide and pantoprazole in the ED - Gastroenterology was consulted by the ED and is aware of the patient - Initial hemoglobin of 7.6 with an MCV of 73.7 repeated after 2 hours showed a hemoglobin of 6.9 - Patient was typed and crossed and consented for 1 unit PRBCs, with a second unit PRBC available - Continue pantoprazole drip - Continue octreotide drip - Strict nothing by mouth until seen by GI in the a.m. for possible EGD procedure - Given low MCV likely iron deficiency will give iron IV after blood products - Repeat H&H after 1 unit of PRBC and every 4 hours until stable - Rocephin started in the ED - Continue Rocephin 2 g daily # Chronic coagulopathy and chronic thrombocytopenia secondary to chronic cirrhosis - Patient carries a previous diagnosis of cirrhosis and coagulopathy - INR of 1.43 with platelets of 145 at admission - Patient was consented and will be transfused 2 units of FFP given active bleeding with elevated INR - Consider by mouth Nadolol when no longer NPO - Transfuse platelets when less than 50,000 # Chronic alcohol dependency - Recent history of 6 beers a day for the last 3 months - Patient reports no alcoholic drinks last 3 days and serum EtOH was negative at admission - CIWA protocol with diazepam available - IV thiamine daily for 3 days we will switch to by mouth after - Case management consult # Acute leukocytosis - Initially mildly elevated at 11.7 bumped to 14 after 2 hours - Given upper GI bleed with lactic acid of 2.2 and negative procalcitonin of 0.11 - Abdomen is soft nondistended and only mildly tender making acute abdomen and SBP less likely - Rocephin started in the ED - Continue Rocephin 2 g daily - Repeat lactic every 2 hours # Elevated bilirubin - Patient has a large hematoma on his left forearm and ecchymosis on right calf caused by contusions from cutting down tree branches - Likely elevated due to resorption of hematomas as well as decreased liver function - Monitor daily # Elevated ammonia - Likely secondary to decreased liver function - Patient's mentation is appropriate but possibly delayed - Consider lactulose when no longer nothing by mouth DVT prophylaxis: SCDs only as anticoagulation is contraindicated GI prophylaxis: Pantoprazole drip CODE STATUS is full Patient is admitted to the CCU at inpatient status with expected length of stay greater than to midnights given presenting symptoms, likely diagnosis, possible complications, and required treatments. Pain Evaluation: Adequate Pain Control GI Prophylaxis: Proton Pump Inhibitor VTE Prophylaxis Indicated: Contraindicated VTE Prophylaxis: SCDs VTE Mechanical Devices: Intermittant Pneumatic CD Resuscitation Status: CPR: Attempt Resuscitation Attending Statement Pt seen and examined by myself and agree with above plan. Rosas Mcclelland DO Feb 22, 2017 23:59 Shelley Machuca MD Feb 23, 2017 06:10
[2017-02-23] VITALS (22 sets, daily range): BP systolic 93–125; BP diastolic 59–79; PULSE 90–118; RESP 16–25; O2SAT 97–100
[2017-02-23] MEDS: 0.9% Sodium Chloride 250 ML IV PRN ×2 (00:46→09:02)
[2017-02-23] MEDS: Thiamine Inj 100 MG in 0.9% Sodium Chloride 100 ML IV SCH ×2 (03:30→14:01)
[2017-02-23 03:38] LABS: Mean Corpuscular Hemoglobin 23.6 pg (27.0-35.0); Mean Corpuscular Volume 74.4 fL (81-100)
[2017-02-23] MEDS ORDERED: 0.9% Sodium Chloride 250 ML IV PRN ×2 (04:05→08:30)
[2017-02-23] MEDS: Pantoprazole Inj 80 MG, Pharmacy To Mix 1 EA in 0.9% Sodium Chloride 80 ML IV SCH ×4 (05:55→16:30)
[2017-02-23] MEDS: Octreotide Inj 500 MCG in 0.9% Sodium Chloride 99 ML IV SCH ×2 (05:55→15:42)
[2017-02-23 07:59] LABS: Mean Corpuscular Volume 75.3 fL (81-100)
--- NOTE | 2017-02-23 09:55 | PCM.PNMED ---
Subjective Date of Service Feb 23, 2017 Subjective Overnight Events: None Mr Turner is resting in bed comfortably and in no acute distress. He currently is not feeling nauseated or vomiting. He did have a bowel movement here that was dark. He's been feeling dizzy, light headed, dehydrated and is having right sided abdominal pain. He denies chest pain, shortness of breath, fever and chills. Exam Vital Signs Vital Sign - Last Date Time Temp Pulse Resp B/P Pulse Ox O2 Delivery O2 Flow Rate FiO2 02/23/17 04:55 37.3 101 18 112/64 02/23/17 04:30 99 Room Air Intake and Output 02/22/17 02/22/17 02/23/17 Cumulative From/Thru 15:00 23:00 07:00 02/22/17 19:59 - 02/23/17 06:15 Intake Total 1000 ml 1418 ml 2418 ml Output Total 120 ml 120 ml Balance 880 ml 1418 ml 2298 ml Intake IV Total 1000 ml 480 ml 1480 ml Packed Cells 938 ml 938 ml Output Other 120 ml 120 ml # Voids 1 1 # Bowel Movements 3 3 Exam General: Middle-age obese male in no acute distress lying comfortably in bed Eyes: Pupils equal round and reactive to light, extraocular motion intact, icteric sclera, noninjected conjunctiva HENT: Normocephalic atraumatic, moist mucous membranes without central cyanosis , oropharynx clear without purulent exudate or cobblestoning mucosa Neck: Supple, trachea midline, without thyromegaly or JVD Cardiovascular: Tachycardic regular rhythm, S1-S2 present, no S3-S4, without murmurs rubs or gallops noted Lungs: Mild coarse breath sounds bilaterally without wheezing or rhonchi Abdomen: Soft, "pressure" to palpation, nondistended, tympanic to percussion, normal active bowel sounds, difficult to assess organomegaly due to body habitus Extremities: No cyanosis clubbing or edema noted, pulses intact bilaterally at dorsalis pedis and radial, large hematomas noted on dorsum of left forearm and ecchymosis on medial right calf : No Mayer catheter in place Skin: Warm and dry, notable papular non-erythematous rash on dorsum of hands bilaterally described as non-pruritic, patient states that he was picking blackberries one month prior Neuro: Cranial nerves grossly intact, sensation intact in extremities Psych: Normal mood and affect IVs and Medications Medications Reviewed: Medications were reviewed in detail Lab and Diagnostics Result Diagram: 02/23/17 0330 02/22/172005 Microbiology MRSA BY PCR NOT DETECTED 12-lead ECG Sinus tachycardia . Probable left atrial enlargement . Left anterior fascicular block * Abnormal R-wave progression, late transition . When compared with ECG of 19-Sep-2016 14:10:38, * No significant change Assessment & Plan Miguel Turner is a 52-year-old male with past medical history remarkable for cirrhosis with portal hypertension and esophageal varices with repeated upper GI bleeds who presents with 1 day of hematemesis and melena. Acute blood loss anemia secondary to Acute Upper GI bleed, prsent on admission, active Patient has history of esophageal varices secondary to cirrhosis with portal hypertension as well as Philly-Ryder tear. This episode is likely secondary to esophageal varices and/or Philly-Ryder tear. - Gastroenterology consultation, will await recommendations - Initial hemoglobin of 7.6 with an MCV of 73.7 repeated after 2 hours showed a hemoglobin of 6.9. 2 units PRBC given with repeat hemoglobin 6.8. Will give another unit now with 2 units ready as needed. - Continue IV octreotide and pantoprazole - NPO today for possible EGD procedure - Given low MCV likely iron deficiency will give iron IV after blood products - Repeat H&H after 1 unit of PRBC and every 4 hours until stable - Continue Rocephin 2 g daily Chronic coagulopathy and chronic thrombocytopenia secondary to chronic cirrhosis , present on admission - Patient carries a previous diagnosis of cirrhosis and coagulopathy - INR of 1.43 with platelets of 145 at admission - 2 units of FFP given for active bleeding with elevated INR. - Consider by mouth Nadolol when no longer NPO - Transfuse platelets when less than 50,000 Chronic alcohol dependency - Recent history of 6 beers a day for the last 3 months, with last drink around 02/19 - 02/20. Serum EtOH negative at admission - [facility] protocol with diazepam available - IV thiamine daily for 3 days we will switch to by mouth after - Case management consult Acute leukocytosis - Initially mildly elevated at 11.7 bumped to 14 after 2 hours - Given upper GI bleed with lactic acid of 2.2 and negative procalcitonin of 0.11 - Abdomen is soft nondistended and only mildly tender making acute abdomen and SBP less likely - Continue Rocephin 2 g daily - Repeat lactic every 2 hours Elevated bilirubin - Patient has a large hematoma on his left forearm and ecchymosis on right calf caused by contusions from cutting down tree branches - Likely elevated due to resorption of hematomas as well as decreased liver function - Monitor daily Elevated ammonia - Likely secondary to decreased liver function - Patient's mentation is appropriate but possibly delayed - Consider lactulose when no longer nothing by mouth DVT prophylaxis: SCDs only as anticoagulation is contraindicated GI prophylaxis: Pantoprazole drip GI Prophylaxis: Proton Pump Inhibitor VTE Prophylaxis: SCDs VTE Mechanical Devices: Intermittant Pneumatic CD Resuscitation Status: CPR: Attempt Resuscitation Attending Statement The patient was seen and examined together with Dr. Rodriguez on 02/23/17 and I have added additional information to the note above. Richar Rodriguez DO Feb 23, 2017 06:30 Odalys Carrillo DO Feb 23, 2017 18:14
[2017-02-23 12:07] LABS: Mean Corpuscular Volume 76.6 fL (81-100)
[2017-02-23 14:21] LABS: Mean Corpuscular Hemoglobin 24.3 pg (27.0-35.0); Mean Corpuscular Volume 75.7 fL (81-100)
[2017-02-23] MEDS ORDERED: Ketamine 10 mg/mL 20 mL Inj ONE (14:38)
[2017-02-23] MEDS ORDERED: Glycopyrrolate 0.2 MG/ML 1mL Inj ONE (14:38)
[2017-02-23] MEDS ORDERED: Propofol 10,000 mCg/mL 20 mL Inj ONE (14:38)
--- NOTE | 2017-02-23 16:37 | PCM.HPANE ---
Patient Data Date of Service: Feb 23, 2017 Surgeon Admitting Provider:Shelley Machuca MD Attending Provider:Odalys Carrillo DO Primary Care Physician:Omar Moralez MD Other Provider: Reason for Visit Gi Bleed Ht/WT & BMI Height (Feet): 5 Height (Inches): 10.00 Weight (Kilograms): 124.200 Body Mass Index 39.20 Allergies Coded Allergies: No Known Drug Allergies (Verified Allergy, Unknown, 02/22/17) Past Anesthesia History Anesthesia History: Positive for:: Difficult Intubation (PT STATES THEY HAD A HARD TIME LAST TIME HE WAS HERE), Denies:: Abnormal Airway, Anesthesia Reactions, Fam Anesthesia Reaction, Fam Malignant Hypertherm, Malignant Hyperthermia Diabetes History Hx Diabetes?: No MRSA MRSA: No Medications Hypertension Medication: No Home Meds Incl Beta Endy: No Reported Medications Furosemide 40 Mg [id number] Mg PO DAILY 02/22/17 Spironolactone 100 Mg [id number] Mg PO DAILY 02/22/17 Discontinued Scripts [Thiamine] (Vitamin B1)100 MG TABLET No Conflict [id number] Mg PO DAILY #30 Prov:Odalys Carrillo DO 09/23/16 Vit#96/Ferrous Fum/FA ( Tablet)1 Each Tablet1 Tablet PO DAILY # 30 TABLET Prov:Odalys Carrillo DO 09/23/[address] 40 Mg Tablet.dr40 Mg PO BIDAC #60 TABLET Prov:Odalys Carrillo DO 09/23/16 Benzonatate 100 Mg [id number] Mg PO TID PRN For Cough #20 CAPSULE Prov:Odalys Carrillo DO 09/23/16 History History of ENT Problems?: No HEENT History: Positive for:: Difficult Intubation (PT STATES THEY HAD A HARD TIME LAST TIME HE WAS HERE) Dysphagia (currently) Denies:: Abnormal Airway Cataracts Hearing Problem Sinus Problem Denture Type: None Teeth Condition: Broken Teeth Tooth Decay Missing Teeth Hx of Heart Problems?: Yes Cardiovascular History: Positive for:: Edema Hypertension Denies:: AICD Atrial Fibrillation Cardiac Surgery Chest Pain Congestive Heart Failure Heart Murmur Irregular Heartbeat Pacemaker Thrombophlebitis Valvular Heart Disease Other Cardiac History: syncope with severe anemia Hx of Respiratory Problem?: No Respiratory History: Positive for:: Cough Denies:: Asthma COPD Chest Surgery Dyspnea Emphysema Hemoptysis Pneumonia Tuberculosis Hx Neurologic Problems?: No Neurological History: Positive for:: Dizziness Denies:: Alzheimer's Disease CVA Dementia Headaches Parkinson's Disease Seizures TIA Hx of GI Problems?: Yes Gastrointestinal History: Positive for:: Cirrhosis Liver Disease Denies:: Gastroesphageal Reflux Hx of Problems?: No Genitourinary History: Denies:: HX of Hemodialysis Kidney Stones Urinary Tract Infection HX of Peritoneal Dialysis: No Male Hx: Denies:: Prostate Problems Scrotal Mass Testicular Surgery Skin History: Denies:: History Skin Disorders? Pressure Ulcers Hx Musculoskeletal Problems?: Yes Musculoskeletal History: Positive for:: Back Injury (working on [employer]) Joint Replacement (right knee) Denies:: Musculoskeletal Trauma Hx of Psycho/Social Problems?: No Psycho Social History: Denies:: Anxiety Bipolar Disorder Hx Depression Suicide Attempt Hx Surgeries?: Yes (knee right ) Hx Any Other Health Problems?: Yes Other History: Positive for:: Hospitalization (anemia Hb 4) Denies:: Cancer Endocrine Disease Thyroid Disease History Blood Transfusions: Positive for:: Accept Blood Products? Blood Transfusions (2units FFP, 2units PRBC's) Denies:: Blood Transfuse Reaction Hx Diabetes: No Occupation: currently unemployed Hx Alcohol Use: Yes (6 beers a day for the last 3 months)Hx Substance Use: No Smoking Status: Light Tobacco Smoker Have You Smoked inLast 12 mo: Yes Stop/Bang Treated for Sleep Apnea?: No Do You Have a CPAP Machine?: No S-Snoring: Do You Snore Loudly: No O-Obsered: Observed not breath: No P-Blood Pressure: treated: No B- Body Mass Index > 35 kg/m2: Yes A- Age over 50: Yes N- Neck Large Circumference: No G- Gender Male: Yes FABRICIO Category 2: Yes Risk Assessment Category Category 1A: Patient has history of documented sleep apnea, and HAS NOT received any narcotic, sedative or anesthesia administration during this stay. Category 1B: Patient has history of documented sleep apnea, and HAS received any narcotic , sedative or anesthesia administration during this stay Category 2: Patient has SUSPECTED Obstructive Sleep Apnea, and HAS received any narcotic , sedative or anesthesia administration during this stay. Category 3: Patient has SUSPECTED Obstructive Sleep Apnea and HAS NOT received narcotic, sedative or anesthesia administration during this stay. Category 4: Outpatient in Procedural Areas with known sleep apnea or who screen positive for High Risk via the STOP/BANG questionnaire. Exam Exam Vital Signs Vital Signs Date Time Temp Pulse Resp B/P Pulse Ox O2 Delivery O2 Flow Rate FiO2 02/23/17 16:28 36.7 95 16 122/75 98 Room Air 02/23/17 12:30 37.1 99 22 119/65 98 Room Air 02/23/17 11:45 37.1 101 23 115/69 02/23/17 11:31 37.1 99 16 121/63 02/23/17 09:15 37.1 97 20 113/64 02/23/17 09:02 37.0 96 20 118/66 General Appearance: Alert, Oriented X3, Cooperative, No Acute Distress HEENT/AIRWAY: MP 3, Neck Movement (from), Mouth Opening (3), Other (tmd3) Lungs: Diminished Heart: Exam Unremarkable, Regular Rate/Rhythm, Normal S1, Normal S2, No Murmurs /Rubs/Gallops Meds/Labs/Diagnostics Admission Meds Current Medications Sodium Chloride (Normal Saline) 1,000 ml @ 0 mls/hr Q0M ONCE IV Last administered on 02/22/17 20:21; Start 02/22/17 at 20:02; Stop 02/22/17 at 20:04 ; Status DC Pantoprazole 80 mg 80 mg STAT ONCE IVPUSH Last administered on 02/22/17 20:33 ; Start 02/22/17 at 20:20; Stop 02/22/17 at 20:22; Status DC Pantoprazole/ Miscellaneous/ Sodium Chloride (Protonix Inj/ Pharmacy To Mix/ Normal Saline) 100 ml @ 10 mls/hr ONCE ONCE IV Last administered on 21:07; Start 02/22/17 at 20:20; Stop 02/23/17 at 06:19; Status DC Octreotide Acetate 50 mcg 50 mcg ONCE ONCE IVPUSH Last administered on 21:07; Start 02/22/17 at 20:20; Stop 02/22/17 at 20:22; Status DC Octreotide Acetate/Sodium Chloride (SandoSTATIN Inj/ Normal Saline) 101 ml @ 10.1 mls/hr ONCE ONCE IV Last administered on 02/22/17 21:07; Start 02/22/17 at 20:20; Stop 02/23/17 at 06:19; Status DC Ondansetron HCl 8 mg 8 mg ONCE ONCE IVPUSH Last administered on 02/22/17 20: 33; Start 02/22/17 at 20:20; Stop 02/22/17 at 20:22; Status DC Ceftriaxone Sodium 1000 mg/ Dextrose/Water 50 ml @ 100 mls/hr ONCE ONCE IV Last administered on 02/22/17 21:49; Start 02/22/17 at 21:15; Stop 02/22/17 at 21:44; Status DC Phytonadione 10 mg/Dextrose/Water 51 ml @ 102 mls/hr ONCE ONCE IV Last administered on 02/22/17 21:49; Start 02/22/17 at 21:15; Stop 02/22/17 at 21:44 ; Status DC Pantoprazole 80 mg/Miscellaneous 1 ea/Sodium Chloride 100 ml @ 10 mls/hr Q10H IV Last administered on 02/23/17 05:55; Start 02/23/17 at 06:30 Octreotide Acetate 500 mcg/ Sodium Chloride 100 ml @ 10 mls/hr Q10H IV Last administered on 02/23/17 05:55; Start 02/23/17 at 06:30 Thiamine HCl 100 mg/Sodium Chloride 101 ml @ 200 mls/hr DAILY IV Last administered on 02/23/17 14:01; Start 02/22/17 at 22:10; Stop 02/24/17 at 09:01 Thiamine HCl/ Folic Acid/ Magnesium Sulfate/ Multivitamins/ Sodium Chloride ( Vitamin B1 Inj/ Folic Acid Inj/ Magnesium Sulfate 50% Inj/MVI-12 Inj/Normal Saline) 1,015.2 ml @ 500 mls/ hr ONCE ONCE IV Last administered on 02/23/17 04:01; Start 02/22/17 at 22:10; Stop 02/23/17 at 00:11; Status DC Labs Test 02/22/17 20:06 02/22/17 21:01 02/22/17 21:55 02/22/17 22:34 Neutrophils (%) (Auto) 62.8% (40-74) Lymphocytes (%) (Auto) 17.1% (14-46) Monocytes (%) (Auto) 18.7% (4-12) Eosinophils (%) (Auto) 0.7% (0-5) Basophils (%) (Auto) 0.5% (0-3) Prothrombin Time 15.4sec (8.1-12.5) Prothromb Time International Ratio 1.43ratio Sodium Level 133mEq/L (134-144) Potassium Level 4.1mEq/L (3.5-5.2) Chloride Level 99mEq/L (97-108) Carbon Dioxide Level 18mmol/L (18-29) Blood Urea Nitrogen 23mg/dL (6-24) Creatinine 0.66mg/dL (0.76-1.27) Estimat Glomerular Filtration Rate 135mL/min (>59) Glucose Level 174mg/dL (60-99) Calcium Level 8.8mg/dL (8.5-10.1) Total Bilirubin 5.1mg/dL (0.0-1.2) Direct Bilirubin 1.6mg/dL (0.0-0.3) Aspartate Amino Transf (AST/SGOT) 62U/L (0-50) Alanine Aminotransferase (ALT/SGPT) 21U/L (0-44) Alkaline Phosphatase 113U/L (25-150) Total Protein 6.2g/dL (6.4-8.4) Albumin 2.9g/dL (3.4-5.0) Lipase 25U/L (13-60) Procalcitonin 0.11ng/mL (0.00-0.08) Hold Blue Top Tube Received (Received) Ammonia 217ug/dL (18-53) Alcohols < 10mg/dL (0-10) Test 02/23/17 03:40 02/23/17 08:05 02/23/17 14:00 Hold [place]osta Top Tube Received (Received) Lactic Acid Level 1.5mmol/L (0.4-2.0) White Blood Count 9.4th/mm3 (3.8-10.1) Red Blood Count 3.17mil/mm3 (4.40-5.80) Hemoglobin 7.7g/dL (13.8-17.2) Hematocrit 24.0% (41.0-50.0) Mean Corpuscular Volume 75.7fL (81-100) Mean Corpuscular Hemoglobin 24.3pg (27.0-35.0) Mean Corpuscular Hemoglobin Concent 32.1% (32.0-37.0) Red Cell Distribution Width 21.1% (12.3-15.4) Platelet Count 98bil/L (150-400) Plan Impression Patient chart reviewed, patient interviewed and anesthestic plan with risks, benefits, and alternatives discussed, and informed consent obtained. NPO per Anesth. Guidelines: Yes ASA Physical Status: ASA3 Plus Emergency Anesthetic Plan: TIVA Bene/Risks/Altern/Consents: Yes HP Complete Prior to Induction: Yes Sung Scruggs MD Feb 23, 2017 16:37
[2017-02-23] MEDS: Lactated Ringer's 1,000 ML IV ONE ×2 (16:48→17:17)
--- NOTE | 2017-02-23 17:25 | PCM.CHPMED ---
Subjective Date of Service: Feb 23, 2017 Provider requesting consult: Rosas Mcclelland DO Primary Physician: Admitting Physician: Shelley Machuca MD Primary Care Physician: Omar Moralez MD Attending Physician: Odalys Carrillo DO Admit Status: From the Emergency Department Chief Complaint: Chief Complaint: vomiting blood and black stools History of Present Illness: GASTROENTEROLOGY CONSULTATION Patient is a 52-year-old man with cirrhosis, esophageal varices, repeat upper GI bleed, and portal hypertension she presents with a three-day history of nausea and vomiting with hematemesis beginning yesterday afternoon at approximately 3 PM since that time he has had 4 episodes of emesis with bright red blood. She is black and bloody stools associated with lower abdominal pain. She has been feeling dizzy and lightheaded and generally dehydrated. He is not having any chest pain, shortness of breath, fever, chills. In August 2016 patient had GI bleed due to Philly-Ryder tear resulting in emergent EGD with banding and transfusion of 7 units of packed red blood cells. Review of Systems: A comprehensive review of systems was conducted with the patient and found to be negative except as above in the History of Present Illness. PMH Past Medical History Cirrhosis Hypertension Esophageal varices Philly-Ryder tear Coagulopathy and thrombocytopenia due to cirrhosis Back injury Depression Surgical History Multiple EGD most recent August 2016 Arthroscopic knee surgery with meniscal repair Right hand surgery Home Medications Furosemide 40 mg by mouth daily Spironolactone 100 mg by mouth daily Allergies: Coded Allergies: No Known Drug Allergies (Verified Allergy, Unknown, 02/22/17) Family History Family History No known family history of colon cancer, celiac disease, or inflammatory bowel disease Social History Occupation: currently unemployed Hx Alcohol Use: Yes (6 beers a day for the last 3 months)Hx Substance Use: No Hx Tobacco Use: Yes (OCCAS) Smoking Status: Light Tobacco Smoker Living Arrangement: Alone Exam Vital Signs Vital Sign - Last Date Time Temp Pulse Resp B/P Pulse Ox O2 Delivery O2 Flow Rate FiO2 02/23/17 11:31 37.1 99 16 121/63 02/23/17 07:27 100 Room Air Intake and Output 02/22/17 02/22/17 02/23/17 Cumulative From/Thru 15:00 23:00 07:00 02/22/17 19:59 - 02/23/17 06:15 Intake Total 1000 ml 1418 ml 2418 ml Output Total 120 ml 120 ml Balance 880 ml 1418 ml 2298 ml Intake IV Total 1000 ml 480 ml 1480 ml Packed Cells 938 ml 938 ml Output Other 120 ml 120 ml # Voids 1 1 # Bowel Movements 3 3 General: Alert, Oriented X3 Head: Normal Chest & Lungs: Auscultation (clear bilaterally) Cardiovascular: No Murmurs/Rubs/Gallops, Other (mildly tachycardic regular rhythm) Abdomen: Tender (pressure), Non-distended, Normoactive bowel tones, Soft, Obese Extremities: No cyanosis/clubbing/edma bilat Neurological: Grossly Neurologically Intact, Other (tremulous in outstretched arms) Lab and Diagnostics Result Diagram: 02/23/17 1400 02/22/172005 Assessment & Plan Assessment Patient is a 52-year-old man with cirrhosis, esophageal varices, repeat upper GI bleed, and portal hypertension she presents with a three-day history of nausea and vomiting with hematemesis. Patient received 2 units of FFP and 2 units of packed red blood cells. Repeat hemoglobin this morning dropped again to 6.8. An additional 2 units of PRBCs were ordered. Patient is hemodynamically stable with a normal blood pressure and occasional mild tachycardia no greater than 105. Recommendations: Continue octreotide drip Continue Protonix drip EGD scheduled for this afternoon. Monitor hemodynamic status, Have 2 units PRBC's available at all times and transfuse if patient shows evidence of bleeding. Problems: Pain Evaluation: Adequate Pain Control GI Prophylaxis: Proton Pump Inhibitor VTE Prophylaxis Indicated: Contraindicated VTE Prophylaxis: SCDs VTE Mechanical Devices: Intermittant Pneumatic CD Resuscitation Status: CPR: Attempt Resuscitation Attending Statement patient seen and examined with Dr Blankenship Agree with Dr Blankenship's H and P plan as outlined above copies to: Elsie Márquez MD, Erika R DO Feb 23, 2017 15:26 Elsie Márquez MD Feb 25, 2017 01:51
--- NOTE | 2017-02-23 18:11 | ENDO ---
[address] [address] ENDOSCOPY PROCEDURE PATIENT: DARRON FERREIRA : 1965 MR#: [id number] ADMIT: 02/22/2017 JOB ID: [id number] PROCEDURE: Esophagogastroduodenoscopy (EGD). INDICATION: Hematemesis. ANESTHESIA: Patient's ASA classification, Mallampati score, and medications as per Dr. Sung Scruggs's anesthesia report. INSTRUMENT USED: GIF H 180 J. PROCEDURE DETAIL: After informed consent was obtained, the patient was brought into the GI suite, where he was placed on oxygen via nasal cannula and monitored with continuous pulse oximeter, telemetry, and blood pressure monitoring. A time-out was performed, then he was placed in the left lateral decubitus position and medications were administered for sedation. A bite block was placed. The standard EGD scope was inserted through the bite block and advanced to the distal esophagus, where we encountered two large varix. They did not have any stigmata of recent bleed. The scope was then advanced to the GE junction, which was at 41 cm. Just below the gastroesophageal junction there was an approximately 5-6 mm ulcer with adherent clot. As I was unable to get adequate scope position, I did not remove the clot or treat the ulcer. I tried in the retroflexed view to see if there was a better position to view the ulcer just below the gastroesophageal junction, however on retroflexed views I could not appreciate the ulcer. The scope was then advanced to the second portion of the duodenum, which was unremarkable. Normal appearing duodenal mucosa was noted. Bile-stained mucosa was noted throughout the duodenum. In the antrum there was what appeared to be a hyperplastic polyp that was large in size, extending from the mid antrum to the pylorus. I was not able to completely visualize this in one view. The polyp appeared hyperplastic. Attempts were not made to remove the polyp. There was no stigmata of recent bleed. Retroflexed views in the gastric body revealed small varices in the fundus, without any stigmata of bleeding. No old or fresh blood was seen in the stomach. IMPRESSION: 1. Two large varix in the distal esophagus without stigmata of recent bleed. 2. Ulcer just below the gastroesophageal junction with adherent clot which I was unable to get adequate position to treat. 3. Gastric polyp in the antrum, extending to the pylorus. RECOMMENDATIONS: 1. Continue PPI drip. 2. Add sucralfate 1 g q.i.d. 3. Continue octreotide drip. 4. Continue to follow H and H closely. 5. Continue IV antibiotics. 6. Recommend ultrasound with Doppler of the portal vessels. 7. Repeat EGD in 3 days COMPLICATIONS: None. ESTIMATED BLOOD LOSS: Zero. MTDD
[2017-02-23 18:29] LABS: Mean Corpuscular Hemoglobin 24.1 pg (27.0-35.0); Mean Corpuscular Volume 76.5 fL (81-100)
[2017-02-23] MEDS ORDERED: Ferric Sod Gluc Complex Inj 125 MG in 0.9% Sodium Chloride 100 ML IV ONE (20:50)
[2017-02-23] MEDS: cefTRIAXone Inj 2,000 MG in Dextrose 5% Minibag Plus 50 ML IV SCH (21:04)
[2017-02-23] MEDS: Sucralfate 100 mg/mL 10 mL Suspension PO SCH (21:04)
[2017-02-23 21:25] LABS: Unsaturated Iron Binding 41.2 ug/dL
[2017-02-24] VITALS (7 sets, daily range): BP systolic 97–122; BP diastolic 50–71; PULSE 73–86; RESP 16–18; O2SAT 96–98
[2017-02-24] MEDS: Octreotide Inj 500 MCG in 0.9% Sodium Chloride 99 ML IV SCH ×3 (02:14→21:35)
[2017-02-24] MEDS: Pantoprazole Inj 80 MG, Pharmacy To Mix 1 EA in 0.9% Sodium Chloride 80 ML IV SCH ×6 (02:58→21:35)
[2017-02-24] MEDS: Sucralfate 100 mg/mL 10 mL Suspension PO SCH ×4 (06:14→21:34)
[2017-02-24] MEDS: Thiamine Inj 100 MG in 0.9% Sodium Chloride 100 ML IV SCH (08:01)
--- NOTE | 2017-02-24 14:18 | PCM.PNMED ---
Subjective Date of Service Feb 24, 2017 Subjective Overnight Events: None Mr Turner is resting in bed comfortably and in no acute distress. He only complains of a very dry mouth, otherwise is not having an nausea, vomiting, chest pain, shortness of breath, fevers, chills or abdominal pain. Exam Vital Signs Vital Sign - Last Date Time Temp Pulse Resp B/P Pulse Ox O2 Delivery O2 Flow Rate FiO2 02/24/17 04:30 37.1 81 18 122/70 98 Room Air Intake and Output 02/23/17 02/23/17 02/24/17 Cumulative From/Thru 15:00 23:00 07:00 02/22/17 19:59 - 02/24/17 06:28 Intake Total 733 ml 1415 ml 242 ml 4808 ml Output Total 650 ml 600 ml 1370 ml Balance 733 ml 765 ml -358 ml 3438 ml Intake IV Total 100 ml 1415 ml 242 ml 3237 ml Packed Cells 633 ml 1571 ml Output Urine Total 650 ml 600 ml 1250 ml Other 120 ml # Voids 2 3 # Bowel Movements 3 1 7 Exam General: Middle-age obese male in no acute distress lying comfortably in bed Eyes: Pupils equal round and reactive to light, extraocular motion intact, icteric sclera, noninjected conjunctiva HENT: Normocephalic atraumatic, moist mucous membranes without central cyanosis , oropharynx clear without purulent exudate or cobblestoning mucosa Neck: Supple, trachea midline, without thyromegaly or JVD Cardiovascular: Tachycardic regular rhythm, S1-S2 present, no S3-S4, without murmurs rubs or gallops noted Lungs: Clear to auscultation bilaterally with no wheezes, rhonchi or rales Abdomen: Soft, nontender, nondistended, tympanic to percussion, normal active bowel sounds, difficult to assess organomegaly due to body habitus Extremities: No cyanosis clubbing or edema noted, pulses intact bilaterally at dorsalis pedis and radial, large hematomas noted on dorsum of left forearm and ecchymosis on medial right calf : No Mayer catheter in place Skin: Warm and dry, notable papular non-erythematous rash on dorsum of hands bilaterally described as non-pruritic, patient states that he was picking blackberries one month prior Neuro: Cranial nerves grossly intact, sensation intact in extremities Psych: Normal mood and affect Lab and Diagnostics Result Diagram: 02/24/1741902/24/17419 Microbiology MRSA BY PCR NOT DETECTED 12-lead ECG Sinus tachycardia . Probable left atrial enlargement . Left anterior fascicular block * Abnormal R-wave progression, late transition . When compared with ECG of 19-Sep-2016 14:10:38, * No significant change Additional Diagnostics Esophagogastroduodenoscopy (EGD). PROCEDURE DETAIL: After informed consent was obtained, the patient was brought into the GI suite, where he was placed on oxygen via nasal cannula and monitored with continuous pulse oximeter, telemetry, and blood pressure monitoring. A time-out was performed, then he was placed in the left lateral decubitus position and medications were administered for sedation. A bite block was placed. The standard EGD scope was inserted through the bite block and advanced to the distal esophagus, where we encountered two large varix. They did not have any stigmata of recent bleed. The scope was then advanced to the GE junction, which was at 41 cm. Just below the gastroesophageal junction there was an approximately 5-6 mm ulcer with adherent clot. As I was unable to get adequate scope position, I did not remove the clot or treat the clot. I tried in the retroflexed view to see if there was a better position to view the ulcer just below the gastroesophageal junction, however on retroflexed views I could not appreciate the ulcer. The scope was then advanced to the second portion of the duodenum, which was unremarkable. Normal appearing duodenal mucosa was noted. Bile-stained mucosa was noted throughout the duodenum. In the antrum there was what appeared to be a hyperplastic polyp that was large in size, extending from the mid antrum to the pylorus. I was not able to completely visualize this in one view. The polyp appeared hyperplastic. Attempts were not made to remove the polyp. There was no stigmata of recent bleed. Retroflexed views in the gastric body revealed small varices in the fundus, without any stigmata of bleeding. No old or fresh blood was seen in the stomach. IMPRESSION: 1. Two large varix in the distal esophagus without stigmata of recent bleed. 2. Ulcer just below the gastroesophageal junction with adherent clot which I was unable to get adequate position to treat. 3. Gastric polyp in the antrum, extending to the pylorus. RECOMMENDATIONS: 1. Continue PPI drip. 2. Add sucralfate 1 g q.i.d. 3. Continue octreotide drip. 4. Continue to follow H and H closely. 5. Continue IV antibiotics. 6. Recommend ultrasound with Doppler of the portal vessels. Assessment & Plan Miguel Turner is a 52-year-old male with past medical history remarkable for cirrhosis with portal hypertension and esophageal varices with repeated upper GI bleeds who presents with 1 day of hematemesis and melena. Acute blood loss anemia secondary to Acute Upper GI bleed, prsent on admission, active Patient has history of esophageal varices secondary to cirrhosis with portal hypertension as well as Philly-Ryder tear. This episode is likely secondary to esophageal varices and/or Philly-Ryder tear. - Gastroenterology consulted, will follow recommendations - Continue IV octreotide and pantoprazole - Given low MCV likely iron deficiency will give iron IV after blood products - H/H has been stable for 1 day, but remains 7.5. - Continue Rocephin 2 g daily - Clear fluids today, Repeat EGD on 02/26/17, make sure NPO after midnight for procedure. Chronic coagulopathy and chronic thrombocytopenia secondary to chronic cirrhosis , present on admission - Patient carries a previous diagnosis of cirrhosis and coagulopathy - INR of 1.43 with platelets of 145 at admission - Transfuse platelets when less than 50,000 Chronic alcohol dependency, present on admission - Recent history of 6 beers a day for the last 3 months, with last drink around 02/19 - 02/20. Serum EtOH negative at admission - [facility] protocol with diazepam available - IV thiamine daily for 3 days we will switch to by mouth after - Case management consult Acute leukocytosis, present on admission, resolved - Initially mildly elevated at 11.7 bumped to 14 after 2 hours - Given upper GI bleed with lactic acid of 2.2 and negative procalcitonin of 0.11 - Abdomen is soft nondistended and only mildly tender making acute abdomen and SBP less likely - Continue Rocephin 2 g daily Elevated bilirubin, present on admission - Patient has a large hematoma on his left forearm and ecchymosis on right calf caused by contusions from cutting down tree branches - Likely elevated due to resorption of hematomas as well as decreased liver function - Monitor daily Elevated ammonia, present on admission - Likely secondary to decreased liver function - Patient's mentation is appropriate but possibly delayed - Consider lactulose when no longer nothing by mouth DVT prophylaxis: SCDs only as anticoagulation is contraindicated GI prophylaxis: Pantoprazole drip GI Prophylaxis: Proton Pump Inhibitor VTE Prophylaxis: SCDs VTE Mechanical Devices: Intermittant Pneumatic CD Resuscitation Status: CPR: Attempt Resuscitation Attending Statement The patient was seen and examined together with Dr. Rodriguez on 02/24/17 and I agree with the history, exam and plan as outlined in the note above. Richar Rodriguez DO Feb 24, 2017 07:12 Odalys Carrillo DO Mar 01, 2017 21:41
--- NOTE | 2017-02-24 15:04 | DRSVH ---
PROCEDURE: US ABDOMEN DOPPLER, LIMITED INDICATIONS: Acute GI bleed, assess portal vessels TECHNIQUE: Real-time scanning was performed of the abdominal and retroperitoneal organs, with image documentatio n. Color and pulse Doppler interrogation was also performed of the hepatic and splenic vessels, or o f the lesion of interest. COMPARISON: [facility]ound, US, US ABDOMEN, 10/09/2016, 7:38. FINDINGS: Liver: The liver is normal to small in size with increased echogenicity and a nodular surface consist ent with cirrhosis. The portal vein is very small approximately 5 or 6 mm in size suggesting it has u ndergone cavernous transformation. The flow in this portion near the rosy hepatis is towards the odette er. Hepatic vein flow is normal. Gallbladder: Gallbladder seen previously is not identified on the current study. Biliary ducts: No intrahepatic biliary ductal dilatation. IMPRESSION: The base of the portal vein in the rosy hepatis would suggest cavernous transformation. This indicates previous thrombosis. The flow seen in the rosy is towards the liver and hepatic veins are considered flow normal direction. Dictated by: Milton Monsalve M.D. on 02/24/2017 at 14:51 Approved by: Milton Monsalve M.D. on 02/24/2017 at 15:02
--- NOTE | 2017-02-24 15:47 | PCM.PNMED ---
Subjective Date of Service Feb 24, 2017 Subjective Patient is feeling okay today, he reports no signs of overt bleeding. He continues to feel tired Exam Vital Signs Vital Sign - Last Date Time Temp Pulse Resp B/P Pulse Ox O2 Delivery O2 Flow Rate FiO2 02/24/17 07:57 37.1 86 16 97/64 98 Room Air Intake and Output 02/23/17 02/23/17 02/24/17 Cumulative From/Thru 15:00 23:00 07:00 02/22/17 19:59 - 02/24/17 06:28 Intake Total 733 ml 1415 ml 242 ml 4808 ml Output Total 650 ml 600 ml 1370 ml Balance 733 ml 765 ml -358 ml 3438 ml Intake IV Total 100 ml 1415 ml 242 ml 3237 ml Packed Cells 633 ml 1571 ml Output Urine Total 650 ml 600 ml 1250 ml Other 120 ml # Voids 2 3 # Bowel Movements 3 1 7 Exam General: No acute distress, well-developed, well-nourished, appropriately interactive HEENT: Normocephalic, atraumatic. External ears without defect. Pupils equal, round, and reactive to light and accommodation. Anicteric sclerae, moist conjunctivae, and no lid lag. Oropharynx free of erythema , dry lips. Neck: Supple with full range of motion. No jugular venous distension. No lymphadenopathy or thyromegaly. Cardiovascular: Regular rate and rhythm with no murmurs, rubs, or gallops appreciated Pulmonary: Clear to auscultation bilaterally with no crackles, wheezes, or rhonchi. Normal respiratory effort with no use of accessory muscles. Abdomen: Bowel tones present. Soft, nontender, nondistended. Obese Extremities: No clubbing, cyanosis, edema, or lymphadenopathy appreciated. Skin: Normal temperature, turgor, and texture; no rash, ulcers, or subcutaneous nodules appreciated. Neurological: Cranial nerves grossly intact. Normal muscle strength, tone, and bulk. No known gait impairment. Psychiatric: Normal mood and affect. Alert and oriented to person, place, and time. Lab and Diagnostics Result Diagram: 02/24/1741902/24/17419 Microbiology MRSA BY PCR NOT DETECTED 12-lead ECG Sinus tachycardia . Probable left atrial enlargement . Left anterior fascicular block * Abnormal R-wave progression, late transition . When compared with ECG of 19-Sep-2016 14:10:38, * No significant change Additional Diagnostics US ABDOMEN DOPPLER, LIMITED IMPRESSION: The base of the portal vein in the rosy hepatis would suggest cavernous transformation. This indicates previous thrombosis. The flow seen in the rosy is towards the liver and hepatic veins are considered flow normal direction. Dictated by: Milton Monsalve M.D. on 02/24/2017 at 14:51 Esophagogastroduodenoscopy (EGD) IMPRESSION: 1. Two large varix in the distal esophagus without stigmata of recent bleed. 2. Ulcer just below the gastroesophageal junction with adherent clot which I was unable to get adequate position to treat. 3. Gastric polyp in the antrum, extending to the pylorus. RECOMMENDATIONS: 1. Continue PPI drip. 2. Add sucralfate 1 g q.i.d. 3. Continue octreotide drip. 4. Continue to follow H and H closely. 5. Continue IV antibiotics. 6. Recommend ultrasound with Doppler of the portal vessels. Elsie Márquez MD 02/23/17 7642 Assessment & Plan Patient is a 52-year-old man with cirrhosis, esophageal varices, repeat upper GI bleed, and portal hypertension she presents with a three-day history of nausea and vomiting with hematemesis. Patient received 2 units of FFP and 2 units of packed red blood cells. Repeat hemoglobin this morning dropped again to 6.8. An additional 2 units of PRBCs were ordered. Patient is hemodynamically stable with a normal blood pressure and occasional mild tachycardia no greater than 105. Recommendations: Continue octreotide drip Continue Protonix drip Continue sucralfate 1 g 4 times a day Continue IV antibiotics Monitor hemodynamic status, Have 2 units PRBC's available at all times and transfuse if patient shows evidence of bleeding EGD will be scheduled for Sunday to monitor status of ulcer GI Prophylaxis: Proton Pump Inhibitor VTE Prophylaxis: SCDs VTE Mechanical Devices: Intermittant Pneumatic CD Resuscitation Status: CPR: Attempt Resuscitation Attending Statement patient seen and examined agree with Dr Blankenship's note above and plan as outlined. copies to: Elsie Márquez MD, Erika R DO Feb 24, 2017 08:47 Elsie Márquez MD Feb 25, 2017 01:56
[2017-02-24] MEDS: cefTRIAXone Inj 2,000 MG in Dextrose 5% Minibag Plus 50 ML IV SCH (21:34)
[2017-02-25] VITALS (7 sets, daily range): BP systolic 96–101; BP diastolic 58–67; PULSE 74–79; RESP 16–20; O2SAT 95–98
[2017-02-25] MEDS: Sucralfate 100 mg/mL 10 mL Suspension PO SCH ×4 (06:31→20:26)
[2017-02-25] MEDS: Pantoprazole Inj 80 MG, Pharmacy To Mix 1 EA in 0.9% Sodium Chloride 80 ML IV SCH ×4 (09:19→19:58)
[2017-02-25] MEDS: Octreotide Inj 500 MCG in 0.9% Sodium Chloride 99 ML IV SCH ×2 (09:19→20:25)
--- NOTE | 2017-02-25 17:07 | PCM.PNMED ---
Subjective Date of Service Feb 25, 2017 Subjective no complaints no further bleeding tolerating clears Exam Vital Signs Vital Sign - Last Date Time Temp Pulse Resp B/P Pulse Ox O2 Delivery O2 Flow Rate FiO2 02/25/17 08:57 36.7 79 17 100/63 95 Room Air Intake and Output 02/24/17 02/24/17 02/25/17 Cumulative From/Thru 15:00 23:00 07:00 02/22/17 19:59 - 02/25/17 06:31 Intake Total 1410 ml 811 ml 7029 ml Output Total 700 ml 500 ml 2570 ml Balance 710 ml 311 ml 4459 ml Intake Oral 950 ml 400 ml 1350 ml IV Total 460 ml 411 ml 4108 ml Packed Cells 1571 ml Output Urine Total 700 ml 500 ml 2450 ml Other 120 ml # Voids 3 # Bowel Movements 0 7 Exam Gen-no apparent distress, oriented to person, place and time HEENT- icterus present RESP- decreased breath sounds in bases CVS-RRR Abdomen-obese, soft, non tender, EXT- edema present Lab and Diagnostics Result Diagram: 02/25/17 0440 02/25/17 0440 Microbiology MRSA BY PCR NOT DETECTED 12-lead ECG Sinus tachycardia . Probable left atrial enlargement . Left anterior fascicular block * Abnormal R-wave progression, late transition . When compared with ECG of 19-Sep-2016 14:10:38, * No significant change Additional Diagnostics US ABDOMEN DOPPLER, LIMITED IMPRESSION: The base of the portal vein in the rosy hepatis would suggest cavernous transformation. This indicates previous thrombosis. The flow seen in the rosy is towards the liver and hepatic veins are considered flow normal direction. Dictated by: Milton Monsalve M.D. on 02/24/2017 at 14:51 Esophagogastroduodenoscopy (EGD) IMPRESSION: 1. Two large varix in the distal esophagus without stigmata of recent bleed. 2. Ulcer just below the gastroesophageal junction with adherent clot which I was unable to get adequate position to treat. 3. Gastric polyp in the antrum, extending to the pylorus. RECOMMENDATIONS: 1. Continue PPI drip. 2. Add sucralfate 1 g q.i.d. 3. Continue octreotide drip. 4. Continue to follow H and H closely. 5. Continue IV antibiotics. 6. Recommend ultrasound with Doppler of the portal vessels. Elsie Márquez MD 02/23/17 7997 Assessment & Plan Hematemesis -patient has 5-6mm ulcer with clot just distal to the GEJ that I was unable to access endoscopically to treat. -he also has esophageal varices that did not have stigmata of bleeding that were not treated -Clinically he has had no more bleeding -will plan to repeat EGD tomorrow to see if medication has improved the ulcer -continue clear liquid diet today ETOH Cirrhosis/Jaundice -alcohol cessation was discussed with patient and his sister who was at bedside -continue supportive care --[facility] liver q 6 months for HCC screening Esophageal varices --on discharge would start nadolol GI Prophylaxis: Proton Pump Inhibitor VTE Prophylaxis: SCDs VTE Mechanical Devices: Intermittant Pneumatic CD Resuscitation Status: CPR: Attempt Resuscitation Elsie Márquez MD Feb 25, 2017 17:07
[2017-02-25] MEDS ORDERED: 0.9% Sodium Chloride 250 ML IV PRN (17:20)
--- NOTE | 2017-02-25 17:28 | PCM.PNMED ---
Subjective Date of Service Feb 25, 2017 Subjective Overnight Events: None. Mr Turner is resting in bed comfortably with family nearby and in no acute distress. He only complains of a very dry mouth and sore throat, otherwise is not having an nausea, vomiting, chest pain, shortness of breath, fevers, chills or abdominal pain. Exam Vital Signs Vital Sign - Last Date Time Temp Pulse Resp B/P Pulse Ox O2 Delivery O2 Flow Rate FiO2 02/25/17 08:57 36.7 79 17 100/63 95 Room Air Intake and Output 02/24/17 02/24/17 02/25/17 Cumulative From/Thru 15:00 23:00 07:00 02/22/17 19:59 - 02/25/17 06:31 Intake Total 1410 ml 811 ml 7029 ml Output Total 700 ml 500 ml 2570 ml Balance 710 ml 311 ml 4459 ml Intake Oral 950 ml 400 ml 1350 ml IV Total 460 ml 411 ml 4108 ml Packed Cells 1571 ml Output Urine Total 700 ml 500 ml 2450 ml Other 120 ml # Voids 3 # Bowel Movements 0 7 Exam General: Middle-age obese male in no acute distress lying comfortably in bed Eyes: Pupils equal round and reactive to light, extraocular motion intact, icteric sclera, noninjected conjunctiva HENT: Normocephalic atraumatic, moist mucous membranes without central cyanosis , oropharynx clear without purulent exudate or cobblestoning mucosa Neck: Supple, trachea midline, without thyromegaly or JVD Cardiovascular: Tachycardic regular rhythm, S1-S2 present, no S3-S4, without murmurs rubs or gallops noted Lungs: Clear to auscultation bilaterally with no wheezes, rhonchi or rales Abdomen: Soft, nontender, nondistended, tympanic to percussion, normal active bowel sounds, difficult to assess organomegaly due to body habitus Extremities: No cyanosis clubbing or edema noted, pulses intact bilaterally at dorsalis pedis and radial, large hematomas noted on dorsum of left forearm and ecchymosis on medial right calf : No Mayer catheter in place Skin: Warm and dry, notable papular non-erythematous rash on dorsum of hands bilaterally described as non-pruritic, patient states that he was picking blackberries one month prior Neuro: Cranial nerves grossly intact, sensation intact in extremities Psych: Normal mood and affect IVs and Medications Medications Reviewed: Medications were reviewed in detail Lab and Diagnostics Result Diagram: 02/25/1743902/25/17439 Microbiology MRSA BY PCR NOT DETECTED 12-lead ECG Sinus tachycardia . Probable left atrial enlargement . Left anterior fascicular block * Abnormal R-wave progression, late transition . When compared with ECG of 19-Sep-2016 14:10:38, * No significant change Additional Diagnostics US ABDOMEN DOPPLER, LIMITED IMPRESSION: The base of the portal vein in the rosy hepatis would suggest cavernous transformation. This indicates previous thrombosis. The flow seen in the rosy is towards the liver and hepatic veins are considered flow normal direction. Dictated by: Milton Monsalve M.D. on 02/24/2017 at 14:51 Esophagogastroduodenoscopy (EGD) IMPRESSION: 1. Two large varix in the distal esophagus without stigmata of recent bleed. 2. Ulcer just below the gastroesophageal junction with adherent clot which I was unable to get adequate position to treat. 3. Gastric polyp in the antrum, extending to the pylorus. RECOMMENDATIONS: 1. Continue PPI drip. 2. Add sucralfate 1 g q.i.d. 3. Continue octreotide drip. 4. Continue to follow H and H closely. 5. Continue IV antibiotics. 6. Recommend ultrasound with Doppler of the portal vessels. Elsie Márquez MD 02/23/17 9777 Assessment & Plan Miguel Turner is a 52-year-old male with past medical history remarkable for cirrhosis with portal hypertension and esophageal varices with repeated upper GI bleeds who presents with 1 day of hematemesis and melena. Acute blood loss anemia secondary to Acute Upper GI bleed, prsent on admission, active Patient has history of esophageal varices secondary to cirrhosis with portal hypertension as well as Philly-Ryder tear. This episode is likely secondary to esophageal varices and/or Philly-Ryder tear. - Gastroenterology following Dr. Valentin, case was discussed with him today. - Continue IV octreotide and pantoprazole ggt. - Given low MCV likely iron deficiency will give iron IV after blood products. - H/H tenuous, with goal of between 7 and 9 hgb. - Continue Rocephin 2 g daily. - Clear fluids today, Repeat EGD on 02/26/17 - NPO after 6AM for procedure as recommended by GI. Chronic coagulopathy and chronic thrombocytopenia secondary to chronic cirrhosis , present on admission - Patient carries a previous diagnosis of cirrhosis and coagulopathy. - INR of 1.43 with platelets of 145 at admission. - Transfuse platelets when less than 50,000. Chronic alcohol dependency, present on admission - Recent history of 6 beers a day for the last 3 months, with last drink around 02/19 - 02/20. Serum EtOH negative on admission - [facility] protocol with diazepam available. - IV thiamine daily for 3 days we will switch to by mouth after - Case management consult for ETOH cessation programs Acute leukocytosis, present on admission, resolved - Initially mildly elevated at 11.7 increased to 14 after 2 hours. - Given upper GI bleed with lactic acid of 2.2 and negative procalcitonin of 0.11. - Abdomen is soft nondistended and only mildly tender making acute abdomen and SBP less likely. - Continue Rocephin 2 g daily. Elevated bilirubin, present on admission - Patient has a large hematoma on his left forearm and ecchymosis on right calf caused by contusions from cutting down tree branches. - Likely elevated due to resorption of hematomas as well as decreased liver function. - Monitor daily. Elevated ammonia, present on admission - Likely secondary to decreased liver function. - Patient's mentation is appropriate but possibly delayed. - Consider lactulose when no longer nothing by mouth. DVT prophylaxis: SCDs only as anticoagulation is contraindicated GI prophylaxis: Pantoprazole drip Acetaminophen for mild pain when necessary. Bowel regimen Senna and MiraLAX scheduled and PRN. Zofran when necessary for nausea and vomiting. SubQ heparin held for now. SCDs in place. Patient is requesting a note regarding his hospital stay to help excuse him from community service on Sunday. Disposition: Likely here for > 2 midnights. Dependent upon EGD finding tomorrow. Will be discharged to home when medically stable. Pain Evaluation: Adequate Pain Control GI Prophylaxis: Proton Pump Inhibitor VTE Prophylaxis: SCDs VTE Mechanical Devices: Intermittant Pneumatic CD Resuscitation Status: CPR: Attempt Resuscitation Attending Statement The patient was seen and examined together with Dr. Zamora on 02/25/17 and I have added additional information to the note above. JOYCELYN ZAMORA DO Feb 25, 2017 16:12 Odalys Carrillo DO Feb 28, 2017 14:28
[2017-02-25] MEDS: cefTRIAXone Inj 2,000 MG in Dextrose 5% Minibag Plus 50 ML IV SCH (20:28)
[2017-02-26] VITALS (8 sets, daily range): BP systolic 98–118; BP diastolic 61–73; PULSE 73–92; RESP 12–20; O2SAT 95–100
[2017-02-26] MEDS: Pantoprazole Inj 80 MG, Pharmacy To Mix 1 EA in 0.9% Sodium Chloride 80 ML IV SCH ×4 (05:49→15:31)
[2017-02-26] MEDS: Octreotide Inj 500 MCG in 0.9% Sodium Chloride 99 ML IV SCH ×2 (06:21→15:31)
[2017-02-26] MEDS: Sucralfate 100 mg/mL 10 mL Suspension PO SCH ×4 (06:30→19:45)
[2017-02-26] MEDS ORDERED: Propofol 10,000 mCg/mL 20 mL Inj ONE (10:28)
[2017-02-26] MEDS ORDERED: Phenylephrine/NS-PF 100 mCg/mL 5 mL Syringe IVPUSH ONE (10:28)
--- NOTE | 2017-02-26 16:45 | PCM.HPANE ---
Patient Data Date of Service: Feb 26, 2017 (1500) Surgeon Admitting Provider:Shelley Machuca MD Attending Provider:Odalys Carrillo DO Primary Care Physician:Omar Moralez MD Other Provider: Reason for Visit Gi Bleed Ht/WT & BMI Height (Feet): 5 Height (Inches): 10.00 Weight (Kilograms): 129.600 Body Mass Index 40.00 Allergies Coded Allergies: No Known Drug Allergies (Verified Allergy, Unknown, 02/22/17) Past Anesthesia History Anesthesia History: Positive for:: Difficult Intubation (PT STATES THEY HAD A HARD TIME LAST TIME HE WAS HERE), Denies:: Abnormal Airway, Anesthesia Reactions, Fam Anesthesia Reaction, Fam Malignant Hypertherm, Malignant Hyperthermia Diabetes History Hx Diabetes?: No MRSA MRSA: No Medications Hypertension Medication: No Home Meds Incl Beta Endy: No Reported Medications Furosemide 40 Mg [id number] Mg PO DAILY 02/22/17 Spironolactone 100 Mg [id number] Mg PO DAILY 02/22/17 Discontinued Scripts [Thiamine] (Vitamin B1)100 MG TABLET No Conflict [id number] Mg PO DAILY #30 Prov:Odalys Carrillo DO 09/23/16 Vit#96/Ferrous Fum/FA ( Tablet)1 Each Tablet1 Tablet PO DAILY # 30 TABLET Prov:Odalys Carrillo DO 09/23/[address] 40 Mg Tablet.dr40 Mg PO BIDAC #60 TABLET Prov:Odalys Carrillo DO 09/23/16 Benzonatate 100 Mg [id number] Mg PO TID PRN For Cough #20 CAPSULE Prov:Odalys Carrillo DO 09/23/16 History History of ENT Problems?: No HEENT History: Positive for:: Difficult Intubation (PT STATES THEY HAD A HARD TIME LAST TIME HE WAS HERE) Dysphagia (currently) Denies:: Abnormal Airway Cataracts Hearing Problem Sinus Problem Denture Type: None Teeth Condition: Broken Teeth Tooth Decay Missing Teeth Hx of Heart Problems?: Yes Cardiovascular History: Positive for:: Edema Hypertension Denies:: AICD Atrial Fibrillation Cardiac Surgery Chest Pain Congestive Heart Failure Heart Murmur Irregular Heartbeat Pacemaker Thrombophlebitis Valvular Heart Disease Other Cardiac History: syncope with severe anemia Hx of Respiratory Problem?: No Respiratory History: Positive for:: Cough Denies:: Asthma COPD Chest Surgery Dyspnea Emphysema Hemoptysis Pneumonia Tuberculosis Hx Neurologic Problems?: No Neurological History: Positive for:: Dizziness Denies:: Alzheimer's Disease CVA Dementia Headaches Parkinson's Disease Seizures TIA Hx of GI Problems?: Yes Hx of Problems?: No Genitourinary History: Denies:: HX of Hemodialysis Kidney Stones Urinary Tract Infection HX of Peritoneal Dialysis: No Male Hx: Denies:: Prostate Problems Scrotal Mass Testicular Surgery Skin History: Denies:: History Skin Disorders? Pressure Ulcers Hx Musculoskeletal Problems?: Yes Musculoskeletal History: Positive for:: Back Injury (working on fishing boats) Joint Replacement (right knee) Denies:: Musculoskeletal Trauma Hx of Psycho/Social Problems?: No Psycho Social History: Denies:: Anxiety Bipolar Disorder Hx Depression Suicide Attempt Hx Surgeries?: Yes (knee right ) Hx Any Other Health Problems?: Yes Other History: Positive for:: Hospitalization (anemia Hb 4) Denies:: Cancer Endocrine Disease Thyroid Disease History Blood Transfusions: Positive for:: Accept Blood Products? Blood Transfusions (2units FFP, 2units PRBC's) Denies:: Blood Transfuse Reaction Hx Diabetes: No Occupation: currently unemployed Hx Alcohol Use: Yes (6 beers a day for the last 3 months)Hx Substance Use: No Smoking Status: Light Tobacco Smoker Have You Smoked inLast 12 mo: Yes Stop/Bang Treated for Sleep Apnea?: No Do You Have a CPAP Machine?: No S-Snoring: Do You Snore Loudly: No O-Obsered: Observed not breath: No P-Blood Pressure: treated: No B- Body Mass Index > 35 kg/m2: Yes A- Age over 50: Yes N- Neck Large Circumference: No G- Gender Male: Yes FABRICIO Category 2: Yes Risk Assessment Category Category 1A: Patient has history of documented sleep apnea, and HAS NOT received any narcotic, sedative or anesthesia administration during this stay. Category 1B: Patient has history of documented sleep apnea, and HAS received any narcotic , sedative or anesthesia administration during this stay Category 2: Patient has SUSPECTED Obstructive Sleep Apnea, and HAS received any narcotic , sedative or anesthesia administration during this stay. Category 3: Patient has SUSPECTED Obstructive Sleep Apnea and HAS NOT received narcotic, sedative or anesthesia administration during this stay. Category 4: Outpatient in Procedural Areas with known sleep apnea or who screen positive for High Risk via the STOP/BANG questionnaire. Exam Exam Vital Signs Vital Signs Date Time Temp Pulse Resp B/P Pulse Ox O2 Delivery O2 Flow Rate FiO2 02/26/17 16:35 73 14 98/66 95 Room Air 02/26/17 16:10 73 14 107/68 97 Room Air 02/26/17 08:56 36.8 75 16 118/71 95 Room Air General Appearance: Alert, Oriented X3 HEENT/AIRWAY: MP 3, Neck Movement (from), Mouth Opening (3), Other (tmd3) Lungs: Diminished Heart: Exam Unremarkable, Regular Rate/Rhythm, Normal S1, Normal S2, No Murmurs /Rubs/Gallops Meds/Labs/Diagnostics Labs Test 02/22/17 20:06 02/22/17 21:01 02/22/17 22:34 02/23/17 03:30 Neutrophils (%) (Auto) 62.8% (40-74) Lymphocytes (%) (Auto) 17.1% (14-46) Monocytes (%) (Auto) 18.7% (4-12) Eosinophils (%) (Auto) 0.7% (0-5) Basophils (%) (Auto) 0.5% (0-3) Prothrombin Time 15.4sec (8.1-12.5) Prothromb Time International Ratio 1.43ratio Hemoglobin A1c 5.2% (4.8-5.6) Direct Bilirubin 1.6mg/dL (0.0-0.3) Lipase 25U/L (13-60) Procalcitonin 0.11ng/mL (0.00-0.08) Hold Blue Top Tube Received (Received) Alcohols < 10mg/dL (0-10) Iron Level 279ug/dL (35-150) Total Iron Binding Capacity 320ug/dL (250-450) Percent Iron Saturation 87%sat (15-50) Unsaturated Iron Binding 41.2ug/dL Ferritin 34ng/mL (30-400) Test 02/23/17 03:40 02/23/17 08:05 02/23/17 18:08 02/25/17 04:40 Hold Acosta Top Tube Received (Received) Lactic Acid Level 1.5mmol/L (0.4-2.0) White Blood Count 7.7th/mm3 (3.8-10.1) Red Blood Count 3.11mil/mm3 (4.40-5.80) Mean Corpuscular Volume 76.5fL (81-100) Mean Corpuscular Hemoglobin 24.1pg (27.0-35.0) Mean Corpuscular Hemoglobin Concent 31.5% (32.0-37.0) Red Cell Distribution Width 21.0% (12.3-15.4) Platelet Count 98bil/L (150-400) Reticulocyte Count,Calculated 2.8% (0.6-2.6) Sodium Level 134mEq/L (134-144) Potassium Level 3.7mEq/L (3.5-5.2) Chloride Level 103mEq/L (97-108) Carbon Dioxide Level 21mmol/L (18-29) Blood Urea Nitrogen 12mg/dL (6-24) Creatinine 0.59mg/dL (0.76-1.27) Estimat Glomerular Filtration Rate 154mL/min (>59) Glucose Level 92mg/dL (60-99) Calcium Level 8.0mg/dL (8.5-10.1) Total Bilirubin 4.3mg/dL (0.0-1.2) Aspartate Amino Transf (AST/SGOT) 100U/L (0-50) Alanine Aminotransferase (ALT/SGPT) 30U/L (0-44) Alkaline Phosphatase 85U/L (25-150) Ammonia 164ug/dL (18-53) Total Protein 5.0g/dL (6.4-8.4) Albumin 2.4g/dL (3.4-5.0) Test 02/25/17 13:30 02/26/17 07:30 Hold Purple Top Tube Received (Received) Hemoglobin 8.4g/dL (13.8-17.2) Hematocrit 26.5% (41.0-50.0) Plan Impression Patient chart reviewed, patient interviewed and anesthestic plan with risks, benefits, and alternatives discussed, and informed consent obtained. NPO per Anesth. Guidelines: Yes ASA Physical Status: ASA3 Severe Disease Anesthetic Plan: MAC Bene/Risks/Altern/Consents: Yes HP Complete Prior to Induction: Yes Phil Nicholas MD Feb 26, 2017 16:45
--- NOTE | 2017-02-26 16:48 | PCM.ANEP1 ---
Post Anesthesia PACU Phase 1 Assessment Vital Signs Vital Signs Date Time Temp Pulse Resp B/P Pulse Ox O2 Delivery O2 Flow Rate FiO2 02/26/17 16:35 73 14 98/66 95 Room Air 02/26/17 16:10 73 14 107/68 97 Room Air 02/26/17 08:56 36.8 75 16 118/71 95 Room Air Anesthetic Administered: MAC Level of Alertness: Sleepy, easy to arouse Pain: No Nausea or Vomiting: No CV Function & Hydration Stable: Yes Airway Device: Oxygen Delivery: Room Air Lungs: Diminished Dermatome Level: Full Sensation PACU Phase 2 Assessment Complications: No Patient Instructions Provided: N/A Phil Nicholas MD Feb 26, 2017 16:48
[2017-02-26] MEDS: Pantoprazole 40 mg ER24 Tablet PO SCH (17:43)
--- NOTE | 2017-02-26 19:10 | DRSVH ---
PROCEDURE: US ABDOMEN, LIMITED ([id number]) INDICATIONS: does he have ascites?, no comment on previous exam TECHNIQUE: Real-time focused scanning was performed of the abdomen, with image documentation. COMPARISON: None. FINDINGS: Limited sonographic images demonstrate trace free fluid in the right upper quadrant. Otherw ise, no free fluid is identified. IMPRESSION: Trace right upper quadrant free fluid. Dictated by: Shelley Jordan M.D. on 02/26/2017 at 19:08 Approved by: Shelley Jordan M.D. on 02/26/2017 at 19:09
[2017-02-26] MEDS: cefTRIAXone Inj 2,000 MG in Dextrose 5% Minibag Plus 50 ML IV SCH (19:45)
--- NOTE | 2017-02-26 22:45 | ENDO ---
[address] [address] ENDOSCOPY PROCEDURE PATIENT: DARRON FERREIRA : 1965 MR#: [id number] ADMIT: 02/22/2017 JOB ID: [id number] DATE OF SERVICE: 02/26/2017 PROCEDURE: Esophagogastroduodenoscopy. INDICATIONS: The patient presented with hematemesis and initial endoscopy revealed an ulcer just below the GE junction with an adherent clot secondary to a difficult scope position. We were unable to treat. He also had large esophageal varices without any stigmata of recent bleeding noted. As the ulcer was not amenable to treatment based on poor scope position, the patient was put on medical therapy and has been brought back today to take a 2nd look at the ulcer. Please see Dr. Zavala's anesthesia report for details regarding ASA classification, Mallampati score, and medications. INSTRUMENT USED: GIF H 180 J. PROCEDURE DETAILS: After informed consent was obtained, the patient was brought to the GI suite, where he was placed on oxygen via nasal cannula and monitored with continuous pulse oximeter, telemetry, and blood pressure monitoring. A time-out was performed. Then, he was placed in a left lateral decubitus position and medications were administered for sedation. A bite block was placed. The standard EGD scope was inserted through the bite block and advanced to the distal esophagus were we saw two columns of large varices without any recent stigmata of bleed. Just below the GE junction where a previously seen ulcer was seen, there was mild erythema noted. However, the ulcer was no longer present and there was no adherent clot. The scope was then advanced to the antrum where we encountered a polyp that measured approximately 2-3 cm and extended to the pylorus. The mucosa of the polyp appeared hyperplastic. The polyp appeared to be linear in shape and followed the superior wall of the antrum to the pylorus. The polyp was difficult to visualize in its entirety. The scope was then advanced into the duodenum which was examined and revealed bile-stained mucosa. The scope was then withdrawn back into the antrum, retroflexion was performed which revealed small gastric varices in the fundus. Portal gastropathy was noted in the mucosa of the gastric body. The scope was then withdrawn to the GE junction where we took a 2nd look at the site of the previously seen ulcer. The scope was then withdrawn. IMPRESSION: 1. Healed ulcer just below the gastroesophageal junction. 2. Large esophageal varices. RECOMMENDATIONS: 1. Continue PPI b.i.d. for two weeks. Then, change to PPI daily. 2. Recommend starting nadolol 40 mg at bedtime. 3. Discontinue Protonix drip. 4. Discontinue octreotide drip. 5. Advanced diet as tolerated. COMPLICATIONS: None. ESTIMATED BLOOD LOSS: 0. MTDD
[2017-02-27] VITALS (8 sets, daily range): BP systolic 78–114; BP diastolic 49–72; PULSE 62–90; RESP 17–24; O2SAT 95–98
[2017-02-27 02:41] LABS: BASOPHILS % (AUTO) 0.3 % (0-3); EOSINOPHILS % (AUTO) 2.6 % (0-5); Mean Corpuscular Hemoglobin 25.4 pg (27.0-35.0); Mean Corpuscular Volume 78.2 fL (81-100); NEUTROPHILS % (AUTO) 73.4 % (40-74); Platelet Count 99 bil/L (150-400)
--- NOTE | 2017-02-27 06:25 | PCM.PNMED ---
Subjective Date of Service Feb 26, 2017 Subjective Overnight Events: None. Today Mr. Turner is resting in bed comfortably and in no acute distress. He is not having any nausea, vomiting, abdominal pain, shortness of breath, fever or chills. He will be having another EGD today. Exam Vital Signs Vital Sign - Last Date Time Temp Pulse Resp B/P Pulse Ox O2 Delivery O2 Flow Rate FiO2 02/26/17 04:09 36.9 75 20 100/63 95 Room Air Intake and Output 02/25/17 02/25/17 02/26/17 Cumulative From/Thru 15:00 23:00 07:00 02/22/17 19:59 - 02/26/17 06:24 Intake Total 2235 ml 1230 ml 01430 ml Output Total 900 ml 1500 ml 4970 ml Balance 1335 ml -270 ml 5524 ml Intake Oral 1550 ml 520 ml 3420 ml IV Total 385 ml 710 ml 5203 ml Packed Cells 300 ml 1871 ml Output Urine Total 900 ml 1500 ml 4850 ml Other 120 ml # Voids 4 7 # Bowel Movements 7 Exam General: Middle-age obese male in no acute distress lying comfortably in bed Eyes: Pupils equal round and reactive to light, extraocular motion intact, icteric sclera, noninjected conjunctiva HENT: Normocephalic atraumatic, moist mucous membranes without central cyanosis , oropharynx clear without purulent exudate or cobblestoning mucosa Neck: Supple, trachea midline, without thyromegaly or JVD Cardiovascular: Tachycardic regular rhythm, S1-S2 present, no S3-S4, without murmurs rubs or gallops noted Lungs: Clear to auscultation bilaterally with no wheezes, rhonchi or rales Abdomen: Soft, nontender, nondistended, tympanic to percussion, normal active bowel sounds, difficult to assess organomegaly due to body habitus Extremities: No cyanosis clubbing or edema noted, pulses intact bilaterally at dorsalis pedis and radial, large hematomas noted on dorsum of left forearm and ecchymosis on medial right calf : No Mayer catheter in place Skin: Warm and dry, notable papular non-erythematous rash on dorsum of hands bilaterally described as non-pruritic, patient states that he was picking blackberries one month prior Neuro: Cranial nerves grossly intact, sensation intact in extremities Psych: Normal mood and affect Lab and Diagnostics Result Diagram: 02/25/17 0440 02/25/17 0440 Microbiology MRSA BY PCR NOT DETECTED 12-lead ECG Sinus tachycardia . Probable left atrial enlargement . Left anterior fascicular block * Abnormal R-wave progression, late transition . When compared with ECG of 19-Sep-2016 14:10:38, * No significant change Additional Diagnostics US ABDOMEN DOPPLER, LIMITED IMPRESSION: The base of the portal vein in the rosy hepatis would suggest cavernous transformation. This indicates previous thrombosis. The flow seen in the rosy is towards the liver and hepatic veins are considered flow normal direction. Dictated by: Milton Monsalve M.D. on 02/24/2017 at 14:51 Esophagogastroduodenoscopy (EGD) IMPRESSION: 1. Two large varix in the distal esophagus without stigmata of recent bleed. 2. Ulcer just below the gastroesophageal junction with adherent clot which I was unable to get adequate position to treat. 3. Gastric polyp in the antrum, extending to the pylorus. RECOMMENDATIONS: 1. Continue PPI drip. 2. Add sucralfate 1 g q.i.d. 3. Continue octreotide drip. 4. Continue to follow H and H closely. 5. Continue IV antibiotics. 6. Recommend ultrasound with Doppler of the portal vessels. Elsie Márquez MD 02/23/17 2004 Assessment & Plan Miguel Turner is a 52-year-old male with past medical history remarkable for cirrhosis with portal hypertension and esophageal varices with repeated upper GI bleeds who presents with 1 day of hematemesis and melena. Acute blood loss anemia secondary to Acute Upper GI bleed, prsent on admission, active Patient has history of esophageal varices secondary to cirrhosis with portal hypertension as well as Philly-Ryder tear. This episode is likely secondary to esophageal varices and/or Philly-Ryder tear. - Gastroenterology consulted, will follow recommendations. - Continue IV octreotide and pantoprazole ggt. - Given low MCV likely iron deficiency will give iron IV after blood products. - H/H tenuous, with goal of between 7 and 9 hgb. - Continue Rocephin 2 g daily. - NPO today, Repeat EGD 02/26/17 Chronic coagulopathy and chronic thrombocytopenia secondary to chronic cirrhosis , present on admission - Patient carries a previous diagnosis of cirrhosis and coagulopathy. - INR of 1.43 with platelets of 145 at admission. - Transfuse platelets when less than 50,000. Chronic alcohol dependency, present on admission - Recent history of 6 beers a day for the last 3 months, with last drink around 02/19 - 02/20. Serum EtOH negative at admission - [facility] protocol with diazepam available. - IV thiamine daily for 3 days we will switch to by mouth after - Case management consult Acute leukocytosis, present on admission, resolved - Initially mildly elevated at 11.7 bumped to 14 after 2 hours. - Given upper GI bleed with lactic acid of 2.2 and negative procalcitonin of 0.11. - Abdomen is soft nondistended and only mildly tender making acute abdomen and SBP less likely. - Continue Rocephin 2 g daily. Elevated bilirubin, present on admission - Patient has a large hematoma on his left forearm and ecchymosis on right calf caused by contusions from cutting down tree branches. - Likely elevated due to resorption of hematomas as well as decreased liver function. - Monitor daily. Elevated ammonia, present on admission - Likely secondary to decreased liver function. - Patient's mentation is appropriate but possibly delayed. - Consider lactulose when no longer nothing by mouth. Disposition: Likely 1-2 days depending on EGD and GI recommendations Pain Evaluation: Adequate Pain Control GI Prophylaxis: Proton Pump Inhibitor VTE Prophylaxis: SCDs VTE Mechanical Devices: Intermittant Pneumatic CD Resuscitation Status: CPR: Attempt Resuscitation Attending Statement The patient was seen and examined together with Dr. Rodriguez on 02/26/2017 and I agree with the history, exam and plan as outlined in the note above. . Richar Rodriguez DO Feb 26, 2017 06:35 Nitesh Herrera MD Feb 28, 2017 08:51
[2017-02-27] MEDS: Sucralfate 100 mg/mL 10 mL Suspension PO SCH ×4 (08:51→20:38)
[2017-02-27] MEDS: Pantoprazole 40 mg ER24 Tablet PO SCH ×2 (08:51→17:03)
[2017-02-27] MEDS ORDERED: 0.9% Sodium Chloride 250 ML IV ONE (10:25)
[2017-02-27] MEDS ORDERED: Lactulose 20 Gm/30 mL 30 mL Syrup PO PRN (12:10)
[2017-02-27] MEDS ORDERED: Thiamine PO (13:51)
[2017-02-27] MEDS ORDERED: PANT40TA3 PO (13:51)
[2017-02-27] MEDS ORDERED: LACT10SO60 PO (13:51)
[2017-02-27] MEDS ORDERED: CIPR-231 PO (14:03)
--- NOTE | 2017-02-27 14:16 | PCM.DIMED ---
Discharge Instructions Date of Service Feb 27, 2017 Dates of Hospitalization Feb 22, 2017 at 21:25 Discharge Diagnosis Discharge Diagnosis Acute blood loss anemia secondary to Acute Upper GI bleed Chronic coagulopathy and chronic thrombocytopenia secondary to chronic cirrhosis Chronic alcohol dependency Acute leukocytosis Elevated bilirubin Elevated ammonia Medication Instructions Additional med instructions New Medications Pantoprazole 40 mg - Take 1 pill twice per day for 2 weeks - After 2 weeks, take 1 pill daily until reviewed by Dr. Foss Lactulose 20 mg - Take 1 pill twice daily. Try to have at least 3 bowel movements per day. If you are having a lot more than 3, you can try 1 per day. Ciprofloxacin 500 mg - Take 1 pill per day for 5 days Diet Discharge Diet: Other (Avoid alcohol) Activity Discharge Activity: No restrictions Call your provider Call your provider for: Fever or Chills, Shortness of breath, Bleeding, Chest pain, Vomitting, Weakness (unilateral) Patient Instructions Patient Instructions New Medications Pantoprazole 40 mg - Take 1 pill twice per day for 2 weeks - After 2 weeks, take 1 pill daily until reviewed by Dr. Foss Lactulose 20 mg - Take 1 pill twice daily. Try to have at least 3 bowel movements per day. If you are having a lot more than 3, you can try 1 per day. Ciprofloxacin 500 mg - Take 1 pill per day for 5 days Follow up with Dr. Campuzano on Thursday March 02, 2017 at 2:30 PM - Establish care - Discuss your recent hospital visit - Discuss starting nadolol or propranolol if your blood pressure is good. Follow up with Dr. Foss in 2-4 weeks Make sure you stop drinking alcohol otherwise this bleeding is more likely to happen again. Follow-up Provider: Paul Campuzano DO Follow-up with PCP in: 1 week (Thursday March 02, 2017 at 2:[address] Campuzano) Provider: Heber Foss MD Follow-up in: 2 weeks (2-4 weeks) Richar Rodriguez DO Feb 27, 2017 14:05
[2017-02-27] MEDS ORDERED: Albumin 25% 25 GM in IV Premix 1 EACH IV SCH (16:30)
[2017-02-27] MEDS ORDERED: Octreotide 500 mCg/100 mL NS IV SCH ×2 (16:35)
--- NOTE | 2017-02-27 16:37 | PCM.PNMED ---
Subjective Date of Service Feb 27, 2017 Subjective Overnight Events: None. Today Mr. Turner is resting in bed comfortably and in no acute distress. He mentions feeling a little lightheaded with walking today and unsteady on his feet. Otherwise he is not having any chest pain, shortness of breath, abdominal pain, nausea, vomiting, diarrhea. He has not had a bowel movement in 4 days, though he mentions he hasn't been eating very much as he has been either NPO or only on clear fluids. He was given 1L IV NS bolus, which helped with his lightheadedness. He did end up having a bowel movement with bright red blood and another large one maroon colored. He did pass a third bowel movement that was brown. Exam Vital Signs Vital Sign - Last Date Time Temp Pulse Resp B/P Pulse Ox O2 Delivery O2 Flow Rate FiO2 02/26/17 22:50 36.9 79 20 118/73 95 Room Air Intake and Output 02/26/17 02/26/17 02/27/17 Cumulative From/Thru 15:00 23:00 07:00 02/22/17 19:59 - 02/27/17 06:19 Intake Total 820 ml 70 ml 92889 ml Output Total 750 ml 5720 ml Balance 70 ml 70 ml 5664 ml Intake Oral 520 ml 3940 ml IV Total 300 ml 70 ml 5573 ml Packed Cells 1871 ml Output Urine Total 750 ml 5600 ml Other 120 ml # Voids 3 10 # Bowel Movements 7 Exam General: Middle-age obese male in no acute distress lying comfortably in bed Eyes: Pupils equal round and reactive to light, extraocular motion intact, icteric sclera, noninjected conjunctiva HENT: Normocephalic atraumatic, moist mucous membranes without central cyanosis , oropharynx clear without purulent exudate or cobblestoning mucosa Neck: Supple, trachea midline, without thyromegaly or JVD Cardiovascular: Tachycardic regular rhythm, S1-S2 present, no S3-S4, without murmurs rubs or gallops noted Lungs: Clear to auscultation bilaterally with no wheezes, rhonchi or rales Abdomen: Soft, nontender, nondistended, tympanic to percussion, normal active bowel sounds, difficult to assess organomegaly due to body habitus Extremities: No cyanosis clubbing or edema noted, pulses intact bilaterally at dorsalis pedis and radial, large hematomas noted on dorsum of left forearm and ecchymosis on medial right calf : No Mayer catheter in place Skin: Warm and dry, notable papular non-erythematous rash on dorsum of hands bilaterally described as non-pruritic, patient states that he was picking blackberries one month prior Neuro: Cranial nerves grossly intact, sensation intact in extremities Psych: Normal mood and affect Lab and Diagnostics Result Diagram: 02/27/1721802/27/17218 Microbiology MRSA BY PCR NOT DETECTED 12-lead ECG Sinus tachycardia . Probable left atrial enlargement . Left anterior fascicular block * Abnormal R-wave progression, late transition . When compared with ECG of 19-Sep-2016 14:10:38, * No significant change Additional Diagnostics 02/26/17 Esophagogastroduodenoscopy (EGD) IMPRESSION: 1. Healed ulcer just below the gastroesophageal junction. 2. Large esophageal varices. RECOMMENDATIONS: 1. Continue PPI b.i.d. for two weeks. Then, change to PPI daily. 2. Recommend starting nadolol 40 mg at bedtime. 3. Discontinue Protonix drip. 4. Continue octreotide drip. 5. Advanced diet as tolerated. US ABDOMEN DOPPLER, LIMITED IMPRESSION: The base of the portal vein in the rosy hepatis would suggest cavernous transformation. This indicates previous thrombosis. The flow seen in the rosy is towards the liver and hepatic veins are considered flow normal direction. Dictated by: Milton Monsalve M.D. on 02/24/2017 at 14:51 Esophagogastroduodenoscopy (EGD) IMPRESSION: 1. Two large varix in the distal esophagus without stigmata of recent bleed. 2. Ulcer just below the gastroesophageal junction with adherent clot which I was unable to get adequate position to treat. 3. Gastric polyp in the antrum, extending to the pylorus. RECOMMENDATIONS: 1. Continue PPI drip. 2. Add sucralfate 1 g q.i.d. 3. Continue octreotide drip. 4. Continue to follow H and H closely. 5. Continue IV antibiotics. 6. Recommend ultrasound with Doppler of the portal vessels. Elsie Márquez MD 02/23/17 5515 Assessment & Plan Miguel Turner is a 52-year-old male with past medical history remarkable for cirrhosis with portal hypertension and esophageal varices with repeated upper GI bleeds who presents with 1 day of hematemesis and melena. Acute blood loss anemia secondary to Acute Upper GI bleed, prsent on admission, active Patient has history of esophageal varices secondary to cirrhosis with portal hypertension as well as Philly-Ryder tear. This episode is likely secondary to esophageal varices and/or Philly-Ryder tear. - Gastroenterology consulted, will follow recommendations. - Given low MCV likely iron deficiency will give iron IV after blood products. - H/H tenuous, with goal of between 7 and 9 hgb. - Repeat EGD 02/26/17, with results as above - Repeat H&H today as above - 1L IV fluid bolus given - Pantoprazole BIDAC for 14 days. Chronic coagulopathy and chronic thrombocytopenia secondary to chronic cirrhosis , present on admission - Patient carries a previous diagnosis of cirrhosis and coagulopathy. - INR of 1.43 with platelets of 145 at admission. - Transfuse platelets when less than 50,000. Chronic alcohol dependency, present on admission - Recent history of 6 beers a day for the last 3 months, with last drink around 02/19 - 02/20. Serum EtOH negative at admission - [facility] protocol with diazepam available. - Thiamine daily - Case management consult Acute leukocytosis, present on admission, resolved - Initially mildly elevated at 11.7 bumped to 14 after 2 hours. - Given upper GI bleed with lactic acid of 2.2 and negative procalcitonin of 0.11. Elevated bilirubin, present on admission - Patient has a large hematoma on his left forearm and ecchymosis on right calf caused by contusions from cutting down tree branches. - Likely elevated due to resorption of hematomas as well as decreased liver function. - Monitor daily. Elevated ammonia, present on admission - Likely secondary to decreased liver function. - Patient's mentation is appropriate but possibly delayed. - Consider lactulose when no longer nothing by mouth. Disposition: Likely 1 day pending repeat H&H and patient symptoms/clinical status. Pain Evaluation: Adequate Pain Control GI Prophylaxis: Proton Pump Inhibitor VTE Prophylaxis: SCDs VTE Mechanical Devices: Intermittant Pneumatic CD Resuscitation Status: CPR: Attempt Resuscitation Attending Statement The patient was seen and examined together with Dr. Rodriguez on 02/27/2017 and I agree with the history, exam and plan as outlined in the note above. . Richar Rodriguez DO Feb 27, 2017 06:29 Nitesh Herrera MD Feb 28, 2017 08:52
--- NOTE | 2017-02-27 17:41 | PCM.PNMED ---
Subjective Date of Service Feb 27, 2017 Subjective patient to be discharged today however rectal bleeding noted repeat H/H performed whic was stable he then had another BM, I saw the stool and it was brown I asked patient to ambulate in the room which he did without assistance, he complained of some mild light headedness Exam Vital Signs Vital Sign - Last Date Time Temp Pulse Resp B/P Pulse Ox O2 Delivery O2 Flow Rate FiO2 02/27/17 16:21 37.1 83 24 106/72 98 Room Air Intake and Output 02/26/17 02/26/17 02/27/17 Cumulative From/Thru 15:00 23:00 07:00 02/22/17 19:59 - 02/27/17 06:55 Intake Total 820 ml 470 ml 13532 ml Output Total 750 ml 5720 ml Balance 70 ml 470 ml 6064 ml Intake Oral 520 ml 400 ml 4340 ml IV Total 300 ml 70 ml 5573 ml Packed Cells 1871 ml Output Urine Total 750 ml 5600 ml Other 120 ml # Voids 3 2 12 # Bowel Movements 7 Exam GEN- no apparent distress HEENT- icterus present RESP- clear bilaterally CVS-RRR abdomen- obese ext- edema present Lab and Diagnostics Result Diagram: 02/27/17 1530 02/27/17 0219 Microbiology MRSA BY PCR NOT DETECTED 12-lead ECG Sinus tachycardia . Probable left atrial enlargement . Left anterior fascicular block * Abnormal R-wave progression, late transition . When compared with ECG of 19-Sep-2016 14:10:38, * No significant change Additional Diagnostics 02/26/17 Esophagogastroduodenoscopy (EGD) IMPRESSION: 1. Healed ulcer just below the gastroesophageal junction. 2. Large esophageal varices. RECOMMENDATIONS: 1. Continue PPI b.i.d. for two weeks. Then, change to PPI daily. 2. Recommend starting nadolol 40 mg at bedtime. 3. Discontinue Protonix drip. 4. Continue octreotide drip. 5. Advanced diet as tolerated. US ABDOMEN DOPPLER, LIMITED IMPRESSION: The base of the portal vein in the rosy hepatis would suggest cavernous transformation. This indicates previous thrombosis. The flow seen in the rosy is towards the liver and hepatic veins are considered flow normal direction. Dictated by: Milton Monsalve M.D. on 02/24/2017 at 14:51 Esophagogastroduodenoscopy (EGD) IMPRESSION: 1. Two large varix in the distal esophagus without stigmata of recent bleed. 2. Ulcer just below the gastroesophageal junction with adherent clot which I was unable to get adequate position to treat. 3. Gastric polyp in the antrum, extending to the pylorus. RECOMMENDATIONS: 1. Continue PPI drip. 2. Add sucralfate 1 g q.i.d. 3. Continue octreotide drip. 4. Continue to follow H and H closely. 5. Continue IV antibiotics. 6. Recommend ultrasound with Doppler of the portal vessels. Elsie Márquez MD 02/23/17 0646 Assessment & Plan Acute Rectal Bleeding -if he has another episode, would recommend he under go flex sig -if overnight more bleeding, restart octreotide and PPI drips, check H/H and contact Dr Foss who is on line csr for the service overnight Gastric Ulcer -healed -continue PPI BID Large Esophageal varices -start Nadolol on light headedness improves, could be done as outpatient Large antral Gastric polyp -repeat EGD as outpatient ETOH Cirrhosis -alcohol abstinence -supportive care -[facility] liver Q6 months for HCC screening -follow up with Dr Foss in 2-4 weeks GI Prophylaxis: Proton Pump Inhibitor VTE Prophylaxis: SCDs VTE Mechanical Devices: Intermittant Pneumatic CD Resuscitation Status: CPR: Attempt Resuscitation Elsie Márquez MD Feb 27, 2017 17:41
[2017-02-28 04:47] VITALS: BP 108/66; PULSE 90; RESP 16; O2SAT 96
[2017-02-28] MEDS: Sucralfate 100 mg/mL 10 mL Suspension PO SCH ×3 (05:36→16:12)
[2017-02-28 08:04] VITALS: BP 101/64; PULSE 90; RESP 16; O2SAT 96
[2017-02-28] MEDS: Pantoprazole 40 mg ER24 Tablet PO SCH ×2 (08:07→16:12)
[2017-02-28] MEDS ORDERED: Lactulose 20 Gm/30 mL 30 mL Syrup PO ONE (08:30)
--- NOTE | 2017-02-28 12:22 | PCM.PNMED ---
Subjective Date of Service Feb 28, 2017 Subjective no further rectal bleeding no complaints tolerating regular diet Exam Vital Signs Vital Sign - Last Date Time Temp Pulse Resp B/P Pulse Ox O2 Delivery O2 Flow Rate FiO2 02/28/17 08:04 36.4 90 16 101/64 96 Room Air Intake and Output 02/27/17 02/27/17 02/28/17 Cumulative From/Thru 15:00 23:00 07:00 02/22/17 19:59 - 02/28/17 04:46 Intake Total 1240 ml 31338 ml Output Total 5720 ml Balance 1240 ml 7304 ml Intake Oral 1240 ml 5580 ml IV Total 5573 ml Packed Cells 1871 ml Output Urine Total 5600 ml Other 120 ml # Voids 6 18 # Bowel Movements 3 10 Exam GEN- oriented to person, place and time HEENT- mild icterus RESP- clear bilaterally CVS-RRR abdomen-soft, non tender, obese, no hepato splenomegaly appreciated secondary to obese abdomen ext- trace edema Lab and Diagnostics Result Diagram: 02/28/17 0738 02/27/17 0219 Microbiology MRSA BY PCR NOT DETECTED 12-lead ECG Sinus tachycardia . Probable left atrial enlargement . Left anterior fascicular block * Abnormal R-wave progression, late transition . When compared with ECG of 19-Sep-2016 14:10:38, * No significant change Additional Diagnostics 02/26/17 Esophagogastroduodenoscopy (EGD) IMPRESSION: 1. Healed ulcer just below the gastroesophageal junction. 2. Large esophageal varices. RECOMMENDATIONS: 1. Continue PPI b.i.d. for two weeks. Then, change to PPI daily. 2. Recommend starting nadolol 40 mg at bedtime. 3. Discontinue Protonix drip. 4. Continue octreotide drip. 5. Advanced diet as tolerated. US ABDOMEN DOPPLER, LIMITED IMPRESSION: The base of the portal vein in the rosy hepatis would suggest cavernous transformation. This indicates previous thrombosis. The flow seen in the rosy is towards the liver and hepatic veins are considered flow normal direction. Dictated by: Milton Monsalve M.D. on 02/24/2017 at 14:51 Esophagogastroduodenoscopy (EGD) IMPRESSION: 1. Two large varix in the distal esophagus without stigmata of recent bleed. 2. Ulcer just below the gastroesophageal junction with adherent clot which I was unable to get adequate position to treat. 3. Gastric polyp in the antrum, extending to the pylorus. RECOMMENDATIONS: 1. Continue PPI drip. 2. Add sucralfate 1 g q.i.d. 3. Continue octreotide drip. 4. Continue to follow H and H closely. 5. Continue IV antibiotics. 6. Recommend ultrasound with Doppler of the portal vessels. Elsie Márquez MD 02/23/17 8569 Assessment & Plan Acute Rectal Bleeding -H/H has remained stable -no further bleeding -ok to discharge from GI standpoint Gastric Ulcer -healed -continue PPI BID Large Esophageal varices -start Nadolol 1/2 of 40mg tablet at bedtime light headedness improves, could be done as outpatient Large antral Gastric polyp -repeat EGD as outpatient ETOH Cirrhosis -alcohol abstinence -supportive care -[facility] liver Q6 months for HCC screening -follow up with Dr Foss in 2-4 weeks GI Prophylaxis: Proton Pump Inhibitor VTE Prophylaxis: SCDs VTE Mechanical Devices: Intermittant Pneumatic CD Resuscitation Status: CPR: Attempt Resuscitation Elsie Márquez MD Feb 28, 2017 12:22
[2017-02-28 13:27] VITALS: BP 100/61; PULSE 87; RESP 17; O2SAT 98
--- NOTE | 2017-02-28 17:31 | PCM.DC.MED ---
Discharge Summary Date of Service Feb 28, 2017 Dates of Hospitalization Date of Hospital Admission Feb 22, 2017 at 21:25 Date of Discharge: Feb 28, 2017 Providers: Admitting Physician: Shelley Machuca MD Primary Care Physician: Omar Moralez MD Attending Physician: Adama Martinez MD Diagnosis at Time of Discharge Diagnosis at Time of Discharge Acute blood loss anemia secondary to Acute Upper GI bleed Chronic coagulopathy and chronic thrombocytopenia secondary to chronic cirrhosis Chronic alcohol dependency Acute leukocytosis Elevated bilirubin Elevated ammonia Procedures ECG 12 Lead Sinus tachycardia . Probable left atrial enlargement . Left anterior fascicular block * Abnormal R-wave progression, late transition . When compared with ECG of 19-Sep-2016 14:10:38, * No significant change Other Diagnostics 02/26/17 Esophagogastroduodenoscopy (EGD) IMPRESSION: 1. Healed ulcer just below the gastroesophageal junction. 2. Large esophageal varices. RECOMMENDATIONS: 1. Continue PPI b.i.d. for two weeks. Then, change to PPI daily. 2. Recommend starting nadolol 40 mg at bedtime. 3. Discontinue Protonix drip. 4. Continue octreotide drip. 5. Advanced diet as tolerated. US ABDOMEN DOPPLER, LIMITED IMPRESSION: The base of the portal vein in the rosy hepatis would suggest cavernous transformation. This indicates previous thrombosis. The flow seen in the rosy is towards the liver and hepatic veins are considered flow normal direction. Dictated by: Milton Monsalve M.D. on 02/24/2017 at 14:51 Esophagogastroduodenoscopy (EGD) IMPRESSION: 1. Two large varix in the distal esophagus without stigmata of recent bleed. 2. Ulcer just below the gastroesophageal junction with adherent clot which I was unable to get adequate position to treat. 3. Gastric polyp in the antrum, extending to the pylorus. RECOMMENDATIONS: 1. Continue PPI drip. 2. Add sucralfate 1 g q.i.d. 3. Continue octreotide drip. 4. Continue to follow H and H closely. 5. Continue IV antibiotics. 6. Recommend ultrasound with Doppler of the portal vessels. Elsie Márquez MD 02/23/17 [id number] Brief History GASTROENTEROLOGY CONSULTATION Patient is a 52-year-old man with cirrhosis, esophageal varices, repeat upper GI bleed, and portal hypertension she presents with a three-day history of nausea and vomiting with hematemesis beginning yesterday afternoon at approximately 3 PM since that time he has had 4 episodes of emesis with bright red blood. She is black and bloody stools associated with lower abdominal pain. She has been feeling dizzy and lightheaded and generally dehydrated. He is not having any chest pain, shortness of breath, fever, chills. In August 2016 patient had GI bleed due to Phil[place]-Ryder tear resulting in emergent EGD with banding and transfusion of 7 units of packed red blood cells. Hospital Course Miguel Turner is a 52-year-old male with past medical history remarkable for cirrhosis with portal hypertension and esophageal varices with repeated upper GI bleeds who presents with 1 day of hematemesis and melena. Acute blood loss anemia secondary to Acute Upper GI bleed, prsent on admission, resolved Patient has history of esophageal varices secondary to cirrhosis with portal hypertension as well as Phil[place]-Ryder tear. This episode is likely secondary to esophageal varices and/or Philly-Ryder tear. - was on IV octreotide and pantoprazole ggt. - Given low MCV likely iron deficiency will give iron IV after blood products. - H/H tenuous, with goal of between 7 and 9 hgb. - Had EGDs inpatient, results and recommendations as noted above Chronic coagulopathy and chronic thrombocytopenia secondary to chronic cirrhosis , present on admission - Patient carries a previous diagnosis of cirrhosis and coagulopathy. - INR of 1.43 with platelets of 145 at admission. - Transfuse platelets when less than 50,000. Chronic alcohol dependency, present on admission - Recent history of 6 beers a day for the last 3 months, with last drink around 02/19 - 02/20. Serum EtOH negative on admission - [facility] protocol with diazepam available. - IV thiamine daily for 3 days we will switch to by mouth after - Case management consult for ETOH cessation programs Acute leukocytosis, present on admission, resolved - Initially mildly elevated at 11.7 increased to 14 after 2 hours. - Given upper GI bleed with lactic acid of 2.2 and negative procalcitonin of 0.11. - Abdomen is soft nondistended and only mildly tender making acute abdomen and SBP less likely. - Continue Rocephin 2 g daily. Elevated bilirubin, present on admission - Patient has a large hematoma on his left forearm and ecchymosis on right calf caused by contusions from cutting down tree branches. - Likely elevated due to resorption of hematomas as well as decreased liver function. - Monitor daily. Elevated ammonia, present on admission - Likely secondary to decreased liver function. - Patient's mentation is appropriate but possibly delayed. -on lactulose when no longer nothing by mouth. DVT prophylaxis: SCDs only as anticoagulation is contraindicated GI prophylaxis: Pantoprazole drip Acetaminophen for mild pain when necessary. Bowel regimen Senna and MiraLAX scheduled and PRN. Zofran when necessary for nausea and vomiting. Follow up outpatient for cirrhosis Exam Vital Signs (Last) Date Time Temp Pulse Resp B/P Pulse Ox O2 Delivery O2 Flow Rate FiO2 02/28/17 13:27 36.7 87 17 100/61 98 Room Air Test 02/22/17 20:06 02/22/17 21:01 02/22/17 22:34 02/23/17 03:30 Prothrombin Time 15.4sec (8.1-12.5) Prothromb Time International Ratio 1.43ratio Hemoglobin A1c 5.2% (4.8-5.6) Direct Bilirubin 1.6mg/dL (0.0-0.3) Lipase 25U/L (13-60) Procalcitonin 0.11ng/mL (0.00-0.08) Hold Blue Top Tube Received (Received) Alcohols < 10mg/dL (0-10) Iron Level 279ug/dL (35-150) Total Iron Binding Capacity 320ug/dL (250-450) Percent Iron Saturation 87%sat (15-50) Unsaturated Iron Binding 41.2ug/dL Ferritin 34ng/mL (30-400) Test 02/23/17 03:40 02/23/17 08:05 02/23/17 18:08 02/25/17 13:30 Hold [place] Top Tube Received (Received) Lactic Acid Level 1.5mmol/L (0.4-2.0) Reticulocyte Count,Calculated 2.8% (0.6-2.6) Hold Purple Top Tube Received (Received) Test 02/27/17 02:19 02/27/17 12:00 02/28/17 07:38 White Blood Count 8.6th/mm3 (3.8-10.1) Red Blood Count 3.31mil/mm3 (4.40-5.80) Mean Corpuscular Volume 78.2fL (81-100) Mean Corpuscular Hemoglobin 25.4pg (27.0-35.0) Mean Corpuscular Hemoglobin Concent 32.4% (32.0-37.0) Red Cell Distribution Width 23.7% (12.3-15.4) Platelet Count 99bil/L (150-400) Neutrophils (%) (Auto) 73.4% (40-74) Lymphocytes (%) (Auto) 10.5% (14-46) Monocytes (%) (Auto) 13.0% (4-12) Eosinophils (%) (Auto) 2.6% (0-5) Basophils (%) (Auto) 0.3% (0-3) Sodium Level 133mEq/L (134-144) Potassium Level 3.9mEq/L (3.5-5.2) Chloride Level 101mEq/L (97-108) Carbon Dioxide Level 22mmol/L (18-29) Blood Urea Nitrogen 9mg/dL (6-24) Creatinine 0.48mg/dL (0.76-1.27) Estimat Glomerular Filtration Rate 195mL/min (>59) Glucose Level 123mg/dL (60-99) Calcium Level 8.0mg/dL (8.5-10.1) Total Bilirubin 5.0mg/dL (0.0-1.2) Aspartate Amino Transf (AST/SGOT) 74U/L (0-50) Alanine Aminotransferase (ALT/SGPT) 27U/L (0-44) Alkaline Phosphatase 115U/L (25-150) Total Protein 5.0g/dL (6.4-8.4) Albumin 2.5g/dL (3.4-5.0) Ammonia 119ug/dL (18-53) Hemoglobin 8.8g/dL (13.8-17.2) Hematocrit 27.6% (41.0-50.0) Microbiology Results MRSA BY PCR NOT DETECTED Discharge Medications Discharge Medications ([Thiamine]) 100 MG TABLET 100 MG PO DAILY Prescribed by: EVARISTO RM Lactulose (Lactulose) 20 Gm/30 Ml Solution 20 GM PO BID Prescribed by: EVARISTO RM Pantoprazole (Pantoprazole DR) 40 Mg Tablet. 40 MG PO BIDAC Prescribed by: EVARISTO RM, Additional med instructions New Medications Pantoprazole 40 mg - Take 1 pill twice per day for 2 weeks - After 2 weeks, take 1 pill daily until reviewed by Dr. Foss Lactulose 20 mg - Take 1 pill twice daily. Try to have at least 3 bowel movements per day. If you are having a lot more than 3, you can try 1 per day. Ciprofloxacin 500 mg - Take 1 pill per day for 5 days Followup Plan Discharge Diet: Other (Avoid alcohol) Discharge Activity: No restrictions Patient Instructions New Medications Pantoprazole 40 mg - Take 1 pill twice per day for 2 weeks - After 2 weeks, take 1 pill daily until reviewed by Dr. Foss Lactulose 20 mg - Take 1 pill twice daily. Try to have at least 3 bowel movements per day. If you are having a lot more than 3, you can try 1 per day. Ciprofloxacin 500 mg - Take 1 pill per day for 5 days Follow up with Dr. Campuzano on Thursday March 02, 2017 at 2:30 PM - Establish care - Discuss your recent hospital visit - Discuss starting nadolol or propranolol if your blood pressure is good. Follow up with Dr. Foss in 2-4 weeks Make sure you stop drinking alcohol otherwise this bleeding is more likely to happen again. Follow-up Provider: Paul Campuzano DO Follow-up with PCP in: 1 week (Thursday March 02, 2017 at 2:[address] Campuzano) Provider: Heber Foss MD Follow-up in: 2 weeks (2-4 weeks) Adama Martinez MD Feb 28, 2017 17:31
== END 2017-02-28 15:50 | disposition home or self-care (01) | DRG 378 ==
LOC: SED 19:54 → EDBD 19:54 → PCC 21:25 → CCU 22:43 → PCC 02-24 10:01 → MOC 02-27 18:25
PROVIDERS: ADMIT Specialist; ATTEND Internal Medicine
PROC: 30233K1 Transfusion of Nonautologous Frozen Plasma into Peripheral Vein, Percutaneous Approach (ICD-10-PCS; 2017-02-23)
PROC: 30233N1 Transfusion of Nonautologous Red Blood Cells into Peripheral Vein, Percutaneous Approach (ICD-10-PCS; 2017-02-23)
PROC: 0DJ08ZZ Inspection of Upper Intestinal Tract, Via Natural or Artificial Opening Endoscopic (ICD-10-PCS; principal; 2017-02-23 16:15)
PROC: 30233N1 Transfusion of Nonautologous Red Blood Cells into Peripheral Vein, Percutaneous Approach (ICD-10-PCS; 2017-02-25)
DX: K92.2 Gastrointestinal hemorrhage, unspecified (principal); D62 Acute posthemorrhagic anemia; D69.6 Thrombocytopenia, unspecified; K70.30 Alcoholic cirrhosis of liver without ascites; K92.0 Hematemesis; I10 Essential (primary) hypertension; F32.9 Major depressive disorder, single episode, unspecified; F17.200 Nicotine dependence, unspecified, uncomplicated; I85.10 Secondary esophageal varices without bleeding; E80.7 Disorder of bilirubin metabolism, unspecified; F10.20 Alcohol dependence, uncomplicated; Y90.0 Blood alcohol level of less than 20 mg/100 ml

== ENCOUNTER 2017-04-26 15:47 | Observation (INO) | payer OTHER ==
[~2017-04-26] VITALS: Ht 179.1 cm; Wt 125.1 kg
[~2017-04-26 15:47] MED LIST changes: -BENZ100C8 PO; +LACT10SO60 PO; -PREN1TAB25 PO
[2017-04-26 15:55] VITALS: BP 132/76; PULSE 71; RESP 20; O2SAT 100
[2017-04-26 16:49] LABS: EOSINOPHILS % (AUTO) 2.5 % (0-5); MONOCYTES % (AUTO) 16.8 % (4-12); Mean Corpuscular Hemoglobin 22.6 pg (27.0-35.0); Mean Corpuscular Volume 70.2 fL (81-100); NEUTROPHILS % (AUTO) 59.9 % (40-74); Platelet Count 162 bil/L (150-400)
[2017-04-26 17:22] LABS: Magnesium 1.9 mg/dL (1.6-2.6)
[2017-04-26 17:23] LABS: TROPONIN T < 0.010 ug/L (0.0-0.011)
[2017-04-26 17:54] VITALS: BP 113/70; PULSE 70; RESP 20; O2SAT 96
--- NOTE | 2017-04-26 18:03 | ED.REPORT ---
HPI-Syncope Date of Service Apr 26, 2017 ED Provider: Doc,Ed MD This is a 52 year old male with history of alcoholic cirrhosis who presents to the emergency department after a syncopal episode. around 4 PM, patient mentioned he got up from his chair, walked to his kitchen to make himself a sandwich and a couple minutes later, subsequently got dizzy while eating a sandwich and lost conciousness and found himself on the ground. Apparently he had lost consciousness for about 5 minutes. Patient did find himself bloody with a laceration behind his right ear. He has not had any symptoms like this in the past. He is no longer feeling dizzy. He denies dizziness with positional changes or with straining. He denies any confusion or focal neurologic deficits. Denies any visual changes, hearing loss or weakness. He currently is having a headache, but does not have any chest pain, neck pain, shortness of breath, nausea, vomiting, diarrhea or abdominal pain. Denies history of seizure. He denies cardiac history or having a stress test in the past. Nursing Notes Stated Complaint: SYNCOPE Chief Complaint: General Complaint Nursing Notes Reviewed: Yes Allergies: Coded Allergies: lactose (Verified Allergy, Intermediate, Diarrhea, 04/26/17) No Known Drug Allergies (Verified Allergy, Unknown, 02/22/17) Scheduled Furosemide (Furosemide) 40 Mg Tablet 40 MG PO DAILY Lactulose (Lactulose) 10 Gm/15 Ml Solution 20 GM PO BID Nadolol (Nadolol) 20 Mg Tablet 20 MG PO DAILY Omeprazole (Omeprazole) 20 Mg Tablet.dr 20 MG PO BID Spironolactone (Spironolactone) 100 Mg Tablet 100 MG PO DAILY Thiamine Mononitrate (Vitamin B-1) 100 Mg Tablet 100 MG PO DAILY General Time Seen by Provider: 18:03 Chief Complaint Lost consciousness Syncope Description: First episode Hx Obtained From: Patient Past Medical History Past Medical History Notes: GI: [facility] Past Medical History Portal hypertension Coagulopathy Thrombocytopenia Cirrhosis Acute upper GI bleed secondary to esophageal varices 05/25 Medication non-compliance due to inability to afford them Respiratory failure w/ intubation (difficult intubate) Arthritis in hands Back injury Depression Past Surgical History Multiple upper endoscopy, with banding of varices Knee surgery R hand Family History Noncontributory Smoking History Light Tobacco Smoker Social History Alcohol Use: 3-5 per day Other Social History: Local resident Ambulatory Status Independent Physical Exam Initial Vital Signs Vital Signs (First) Date Time Temp Pulse Resp B/P Pulse Ox O2 Delivery O2 Flow Rate FiO2 04/26/17 15:55 36.7 71 20 132/76 100 Room Air Initial VS: Reviewed Neck: Supple, Non-tender, Full range of motion Abdomen / GI: Soft, Non-tender, No guarding, No rebound, No distention Back: No CVA tenderness Lymphatic: No lymphadenopathy Upper Extremities: Vascular intact, Neuro intact, No swelling Skin: Warm, Dry Psychiatric: Mood/affect normal, Behavior normal, Normal thought content Respiratory / Chest: Atraumatic, Breath sounds NL, Breath sounds = bilat, No respiratory distress, No rales, No rhonchi, No wheezing Cardiovascular: Heart rate NL, Regular rhythm Heart Sounds / Murmur: Positive: Murmur location... (2nd R intercostal), Murmur present... (II/) Lower Extremity / Pelvis / MS: No erythema, No deformity, Neurologic intact, Vascular intact Right Hip: Positive: Ecchymosis present, Tenderness present... (Mild) Neurologic: Oriented X3, Speech NL, No motor deficits, No sensory deficits, CN II - XII intact, Cerebellar NL Head / Eyes: Normocephalic, PERRL, EOMI, No periorbital swelling, Eyelids NL Conjunctiva / Sclera: Positive: Icteric 1 cm laceration posterior right ear lobe Interpretation & Diagnostics Lab Results Interpretation Result Diagram: 04/26/17 1617 04/26/17 1617 Test 04/26/17 16:17 White Blood Count 7.2th/mm3 (3.8-10.1) Red Blood Count 4.16mil/mm3 (4.40-5.80) Hemoglobin 9.4g/dL (13.8-17.2) Hematocrit 29.2% (41.0-50.0) Mean Corpuscular Volume 70.2fL (81-100) Mean Corpuscular Hemoglobin 22.6pg (27.0-35.0) Mean Corpuscular Hemoglobin Concent 32.2% (32.0-37.0) Red Cell Distribution Width 19.9% (12.3-15.4) Platelet Count 162bil/L (150-400) Neutrophils (%) (Auto) 59.9% (40-74) Lymphocytes (%) (Auto) 19.7% (14-46) Monocytes (%) (Auto) 16.8% (4-12) Eosinophils (%) (Auto) 2.5% (0-5) Basophils (%) (Auto) 1.0% (0-3) Hold Purple Top Tube Received (Received) Prothrombin Time 13.6sec (8.1-12.5) Prothromb Time International Ratio 1.26ratio Hold Blue Top Tube Received (Received) Sodium Level 135mEq/L (134-144) Potassium Level 4.0mEq/L (3.5-5.2) Chloride Level 101mEq/L (97-108) Carbon Dioxide Level 21mmol/L (18-29) Blood Urea Nitrogen 5mg/dL (6-24) Creatinine 0.60mg/dL (0.76-1.27) Estimat Glomerular Filtration Rate 151mL/min (>59) Glucose Level 95mg/dL (60-99) Calcium Level 8.4mg/dL (8.5-10.1) Magnesium Level 1.9mg/dL (1.6-2.6) Total Bilirubin 2.3mg/dL (0.0-1.2) Aspartate Amino Transf (AST/SGOT) 75U/L (0-50) Alanine Aminotransferase (ALT/SGPT) 20U/L (0-44) Alkaline Phosphatase 150U/L (25-150) Troponin T < 0.010ug/L (0.0-0.011) Total Protein 7.4g/dL (6.4-8.4) Albumin 3.3g/dL (3.4-5.0) Hold [place] Top Tube Received (Received) Alcohols 94mg/dL (0-10) ECG Interpretation ECG Interpretation: 1st degree heart block Left anterior fascicular block Time: 18:30 Interpreted by: ED physician CT Head Interpretation FINDINGS: Image quality: Excellent. CSF spaces: Basal cisterns are patent. No extra-axial fluid collections. Ventricles are normal in size and shape. Brain: No midline shift. No intracranial masses or hemorrhage. Young-white matter interface is normal. Skull and face: Calvarium and visualized facial bones are intact, without suspicious lesions. Sinuses: Visualized sinuses and mastoids are clear. IMPRESSION: No trauma found. Interpretation / Wet Read by: Interpret - Radiologist Procedures Laceration Management Time: 20:45 Procedure Performed by: ED resident Consent / Setup / Site Prep: Consent from patient Location of Wound: Posterior Right ear lobe Wound Length: 1 cm Local Anesthesia: Lidocaine 1% Wound Preparation: Shurclens, Normal saline Debridement: None Irrigation: Copious Foreign Body Explore / Removal: Explored for foreign body Repair Skin: ___ O (5), Nylon # Sutures - Skin: 2 Suture Technique: Simple Post-Procedure / Complications: Antibiotic oint applied, Dressing applied, No complications, Condition improved, Tolerated procedure well, Patient stable Re-Eval/Medical Decision Med Decision/Clinical Course This is a 52 year old male with history of alcoholic cirrhosis who presents to the emergency department after a syncopal episode and head trauma. Patient has not had like this before and no obvious clues from the history or physical that would suggest orthostatic or vasovagal. His labs show Hgb or 9.8, which is above his baseline. Otherwise CBC and CMP are unremarkable. Troponin is negative. EKG shows 1st degree heart block with Left anterior fascicular block, but nothing that would explain his syncopal episode. Head CT did not show any signs of acute intracranial abnormality. Unlikely related to a PE as patient has no risk factors associated with his PE, didn't have any chest pain, shortness of breath, leg swelling, no history of cancer or trauma or surgery in the past 4 weeks. Given unprovoked syncope with sustained loss of consciousness despite head trauma and unknown recollection, I believe the patient would benefit from further workup for cause of his syncope. Discussed with Dr. Mesa who accepts admit. While in the ED patient had 2 sutures placed to the posterior right earlobe laceration without any complications. Consultation : Referral / Consult Name: Hortencia Mesa DO Consulted With: Hospitalist Call Returned at: 20:15 Stock Grader: Accepts admit Counseled Regarding: Diagnosis, Lab results, Need for admission Discharge & Departure Impression: Primary Impression: Syncope Syncope type: unspecified Qualified Code: R55 - Syncope and collapse Additional Impression: Head trauma Encounter type: initial encounter Qualified Code: S09.90XA - Unspecified injury of head, initial encounter Disposition: ADMITTED TO HOSPITAL Discharge Condition All VS Reviewed: Yes Condition: Stable Referrals: Paul Campuzano DO (PCP) Attending Statement I personally took a history performed a physical examination. 52-year-old male with syncopal episode. He hit his head suffering a laceration. Diagnostic show evidence of chronic liver disease which is well-known. Due to the fact that this did not seem a classic orthostatic syncope we will admit him for close observation tonight. Myocardial infarction and pulmonary emboli felt to be highly unlikely. Emanuel Ritter DO Apr 26, 2017 18:03 Richar Rodriguez DO Apr 26, 2017 18:29
[2017-04-26 18:31] LABS: INR 1.26 ratio
--- NOTE | 2017-04-26 18:35 | DRSVH ---
PROCEDURE: CT BRAIN WITHOUT CONTRAST ([id number]) INDICATIONS: syncope, head injury TECHNIQUE: Noncontrast 4.5 mm thick angled axial sections acquired from the foramen magnum to the vertex, with c oronal reformats. COMPARISON: None. FINDINGS: Image quality: Excellent. CSF spaces: Basal cisterns are patent. No extra-axial fluid collections. Ventricles are normal in size and shape. Brain: No midline shift. No intracranial masses or hemorrhage. Young-white matter interface is norm al. Skull and face: Calvarium and visualized facial bones are intact, without suspicious lesions. Sinuses: Visualized sinuses and mastoids are clear. IMPRESSION: No trauma found. Dictated by: Smith Salazar M.D. on 04/26/2017 at 18:33 Approved by: Smith Salazar M.D. on 04/26/2017 at 18:33
[2017-04-26 20:07] VITALS: BP 116/71; PULSE 72; RESP 20; O2SAT 98
[2017-04-26] MEDS ORDERED: FURO40TA4 PO (21:07)
[2017-04-26] MEDS ORDERED: SPIR100T3 PO (21:07)
[2017-04-26] MEDS ORDERED: LACT10SO PO (21:07)
[2017-04-26] MEDS ORDERED: NADO20TA PO (21:07)
[2017-04-26] MEDS ORDERED: OMEP20TA86 PO (21:07)
[2017-04-26] MEDS ORDERED: THIA100T64 PO (21:10)
[2017-04-26] MEDS ORDERED: Alum-Mag Hydrox-Simeth 30 mL Suspension PO PRN ×2 (21:15→23:10)
[2017-04-26] MEDS ORDERED: Polyethylene Glycol (PEG) 17 Gm Powder PO PRN ×2 (21:15→23:10)
[2017-04-26] MEDS ORDERED: Ondansetron 2 mg/mL 2 mL Inj IVPUSH PRN ×2 (21:15→23:10)
[2017-04-26 21:30] VITALS: BP 113/68; PULSE 87; RESP 20; O2SAT 98
[2017-04-26 22:05] VITALS: BP 143/81; PULSE 84; RESP 20; O2SAT 98
--- NOTE | 2017-04-26 23:20 | PCM.HPMED ---
Subjective Date of Service Apr 26, 2017 Primary Provider: Admitting Physician: Hortencia Mesa DO Primary Care Physician: Paul Campuzano DO Attending Physician: Hortencia Mesa DO Admit Status: From the Emergency Department Chief Complaint: Syncope History of Present Illness: Patient is a 52-year-old male that presented to the emergency department via EMS after a syncopal episode in which he hit his head. He has a history of alcoholic cirrhosis, portal hypertension, coagulopathy Patient presented to the emergency department after an unwitnessed syncopal episode. Patient was found down and was told that he would had lost consciousness for at least 5 minutes. Observer denied any convulsive activities and stated that patient was snoring. Patient admits to having a laceration, presumably from the fall. He states that he had just walked into his house and was experiencing some pain from walking up a step secondary to knee arthritis. Patient states he was hungry and was about to eat when he was suddenly feeling lightheaded. He awoke lying on the floor. He had lost his bowels but not bladder. Patient has never had anything like this before and states that he now feels fine as he did upon awakening. Patient denies any change in vision, change in hearing, weakness, confusion, chest pain, nausea, vomiting, palpitations, cough. Patient believes he has had an echo but is uncertain. We have no record of an echo. Of note, patient was hospitalized in February 2017 for bleeding esophageal varices. He states that he is not consumed alcohol since that point. Review of Systems: Complete ROS was performed and pertinent positives and negatives included in the history of present illness. All other findings were negative. Allergies Coded Allergies: lactose (Verified Allergy, Intermediate, Diarrhea, 04/26/17) No Known Drug Allergies (Verified Allergy, Unknown, 02/22/17) Home Medications Furosemide (Furosemide) 40 Mg Tablet 40 MG PO DAILY Lactulose (Lactulose) 10 Gm/15 Ml Solution 20 GM PO BID Nadolol (Nadolol) 20 Mg Tablet 20 MG PO DAILY Omeprazole (Omeprazole) 20 Mg Tablet.dr 20 MG PO BID Spironolactone (Spironolactone) 100 Mg Tablet 100 MG PO DAILY Thiamine Mononitrate (Vitamin B-1) 100 Mg Tablet 100 MG PO DAILY PMH Portal hypertension Coagulopathy Thrombocytopenia Cirrhosis Acute upper GI bleed secondary to esophageal varices 05/25 Medication non-compliance due to inability to afford them Respiratory failure w/ intubation (difficult intubate) Arthritis in hands Back injury Depression Surgical History Multiple upper endoscopy, with banding of varices Knee surgery R hand Family History 1. Patient denies family history of seizures, heart disease, diabetes 2. Mother, stroke Social History Hx Alcohol Use: Yes (alcoholic, quit 02/2017) Hx Substance Use: No Hx Tobacco Use: Yes (OCCAS) Smoking Status: Light Tobacco Smoker Exam Vital Signs Vital Sign - Last Date Time Temp Pulse Resp B/P Pulse Ox O2 Delivery O2 Flow Rate FiO2 04/26/17 22:05 37.2 84 20 143/81 98 Room Air Exam General: Nondistressed, well-developed well-nourished male HEENT: Laceration posterior right ear with sutures, PERRLA, EOM intact. Nontender sinuses, no nasal discharge. Poor dentation, no erythema, nor exudate present in oropharynx. No thyromegaly appreciated. CV: Regular rate and rhythm, no murmurs, gallops, or rubs appreciated RESP: Clear to auscultation bilaterally, no wheezes or rhonchi appreciated ABD: Bowel sounds normal, nondistended, nontender to palpation. EXT: No joint swelling, no edema appreciated LYMPH: No cervical or axillary adenopathy appreciated NEURO: Symmetric face, cranial nerves grossly intact, strength intact bilaterally upper and lower extremities, sensation to light touch intact bilaterally upper and lower extremities. PSYCH: Oriented 3. Linear and appropriate conversation. Skin: No rashes or ecchymosis appreciated Lab and Diagnostics Result Diagram: 04/26/17 1617 04/26/17 1617 X-Rays, CTs and MRIs PROCEDURE: CT BRAIN WITHOUT CONTRAST ([id number]) IMPRESSION: No trauma found. 12-lead ECG ECG Interpretation: 1st degree heart block Left anterior fascicular block Time: 18:30 Interpreted by: ED physician Assessment & Plan Patient is a 52-year-old male that presented to the emergency department by EMS after syncopal episode. He has a history of alcoholic cirrhosis and portal hypertension 1. Syncopal event, present upon admission and ongoing -Syncopal event with loss of consciousness for approximately 5 minutes. Loss of bowel, denies confusion -Cardiogenic versus neurogenic versus alcohol withdrawal is unclear with given history -Stress echo tomorrow -Telemetry -Hemoglobin A1c, rule out diabetes and possible hypoglycemia -Patient is on furosemide and nadolol and spironolactone but without any recent changes, less likely to be the cause -Telemetry stress test do not elucidate the cause, consider Zio patch or Holter monitor outpatient 2. Anemia, present upon admission and ongoing -Patient with cirrhosis and recent GI bleed -Anemia improved since previous hospital stay in February -Patient being treated patient thiamine 3. Cirrhosis, present upon admission and ongoing -Patient has history of cirrhosis with elevated liver function tests -Continue outpatient medications 4. History of alcohol dependence and abuse, present on admission and ongoing -Patient states he has not consumed alcohol since February 2017 when he was admitted for esophageal varices bleeds -Patient's blood alcohol level at 94 on admission Patient is being admitted as observation status. I expect him to spend less than 2 midnights in the hospital Pain Evaluation: Adequate Pain Control GI Prophylaxis: H2 oscar VTE Prophylaxis: SCDs Resuscitation Status: CPR: Attempt Resuscitation Attending Statement The patient was seen and examined together with house staff on 04/26/2017 and I agree with the history, exam and plan as outlined in the note above. Andria Rose DO Apr 26, 2017 23:20 Hortencia Mesa DO Apr 27, 2017 05:09
--- NOTE | 2017-04-26 23:23 | NUR ---
Admission Pt arrived at [facility] rm 1001 at 2200 from the ED via gurney. Able to transfer/ambulate with SBA and had no c/o dizziness. Pt is here after having a syncope episode resulting in a fall. Pt is CPR. A/O x4, making needs known. Denies pain. IV to Rt AC is SL, patent. General diet. Pt oriented to room, call light and BR. Advised to use call light for help prior to getting up due to his risk for falling and he agreed. Pt is cont B/B. Call light in reach. Care continues. Addendum: 04/26/17 at 2330 by RICARDO PEÑA RN Pt on Novatek, SR 70's
[2017-04-27] VITALS (10 sets, daily range): BP systolic 106–141; BP diastolic 70–83; PULSE 75–96; RESP 17–18; O2SAT 98–100
[2017-04-27 07:50] LABS: BASOPHILS % (AUTO) 0.5 % (0-3); EOSINOPHILS % (AUTO) 2.7 % (0-5); MONOCYTES % (AUTO) 18.1 % (4-12); Mean Corpuscular Hemoglobin 22.5 pg (27.0-35.0); Mean Corpuscular Volume 70.4 fL (81-100); Platelet Count 126 bil/L (150-400)
[2017-04-27 08:15] LABS: Magnesium 1.9 mg/dL (1.6-2.6)
[2017-04-27] MEDS ORDERED: Lactulose 20 Gm/30 mL 30 mL Syrup PO SCH (08:30)
[2017-04-27] MEDS: Pantoprazole 40 mg ER24 Tablet PO SCH ×2 (09:56→17:25)
[2017-04-27] MEDS: 0.9% Sodium Chloride 1,000 ML IV SCH ×2 (09:57→22:47)
--- NOTE | 2017-04-27 15:00 | PCM.PNMED ---
Subjective Date of Service Apr 27, 2017 Subjective Patient alert this a.m. Has no current complaints. Exam Vital Signs Vital Sign - Last Date Time Temp Pulse Resp B/P Pulse Ox O2 Delivery O2 Flow Rate FiO2 04/27/17 14:26 36.8 79 18 106/70 99 Room Air Exam Constitutional: Middle-aged male in no acute distress Head: Normocephalic atraumatic Chest: Clear to auscultation Cor: Regular rate and rhythm S1-S2 Abdomen: Soft nontender bowel sounds present Extremities: No pedal edema Neuro: Alert and oriented 3, motor strength is intact bilaterally IVs and Medications Medications Reviewed: Medications were reviewed in detail Lab and Diagnostics Laboratory Tests 72 Hours Test 04/26/17 16:17 04/27/17 00:00 04/27/17 07:40 White Blood Count 7.2th/mm3 (3.8-10.1) 5.6th/mm3 (3.8-10.1) Red Blood Count 4.16mil/mm3 (4.40-5.80) 3.82mil/mm3 (4.40-5.80) Hemoglobin 9.4g/dL (13.8-17.2) 8.6g/dL (13.8-17.2) Hematocrit 29.2% (41.0-50.0) 26.9% (41.0-50.0) Mean Corpuscular Volume 70.2fL (81-100) 70.4fL (81-100) Mean Corpuscular Hemoglobin 22.6pg (27.0-35.0) 22.5pg (27.0-35.0) Mean Corpuscular Hemoglobin Concent 32.2% (32.0-37.0) 32.0% (32.0-37.0) Red Cell Distribution Width 19.9% (12.3-15.4) 20.0% (12.3-15.4) Platelet Count 162bil/L (150-400) 126bil/L (150-400) Neutrophils (%) (Auto) 59.9% (40-74) 59.0% (40-74) Lymphocytes (%) (Auto) 19.7% (14-46) 19.7% (14-46) Monocytes (%) (Auto) 16.8% (4-12) 18.1% (4-12) Eosinophils (%) (Auto) 2.5% (0-5) 2.7% (0-5) Basophils (%) (Auto) 1.0% (0-3) 0.5% (0-3) Hold Purple Top Tube Received (Received) Prothrombin Time 13.6sec (8.1-12.5) Prothromb Time International Ratio 1.26ratio Hold Blue Top Tube Received (Received) Sodium Level 135mEq/L (134-144) 134mEq/L (134-144) Potassium Level 4.0mEq/L (3.5-5.2) 3.9mEq/L (3.5-5.2) Chloride Level 101mEq/L (97-108) 99mEq/L (97-108) Carbon Dioxide Level 21mmol/L (18-29) 22mmol/L (18-29) Blood Urea Nitrogen 5mg/dL (6-24) 9mg/dL (6-24) Creatinine 0.60mg/dL (0.76-1.27) 0.60mg/dL (0.76-1.27) Estimat Glomerular Filtration Rate 151mL/min (>59) 151mL/min (>59) Glucose Level 95mg/dL (60-99) 109mg/dL (60-99) Calcium Level 8.4mg/dL (8.5-10.1) 8.2mg/dL (8.5-10.1) Magnesium Level 1.9mg/dL (1.6-2.6) 1.9mg/dL (1.6-2.6) Total Bilirubin 2.3mg/dL (0.0-1.2) 2.8mg/dL (0.0-1.2) Aspartate Amino Transf (AST/SGOT) 75U/L (0-50) 57U/L (0-50) Alanine Aminotransferase (ALT/SGPT) 20U/L (0-44) 17U/L (0-44) Alkaline Phosphatase 150U/L (25-150) 139U/L (25-150) Troponin T < 0.010ug/L (0.0-0.011) 0.010ug/L (0.0-0.011) Total Protein 7.4g/dL (6.4-8.4) 6.6g/dL (6.4-8.4) Albumin 3.3g/dL (3.4-5.0) 3.1g/dL (3.4-5.0) Hold [place] Top Tube Received (Received) Alcohols 94mg/dL (0-10) Ammonia 174ug/dL (18-53) Result Diagram: 04/27/17 0740 04/27/17 0740 X-Rays, CTs and MRIs PROCEDURE: CT BRAIN WITHOUT CONTRAST ([id number]) IMPRESSION: No trauma found. 12-lead ECG ECG Interpretation: 1st degree heart block Left anterior fascicular block Time: 18:30 Interpreted by: ED physician Assessment & Plan Patient is a 52-year-old male that presented to the emergency department by EMS after syncopal episode. He has a history of alcoholic cirrhosis and portal hypertension 1. Syncopal event, present upon admission and ongoing -Syncopal event with loss of consciousness for approximately 5 minutes. Loss of bowel, denies confusion -Cardiogenic versus neurogenic versus alcohol withdrawal is unclear with given history -Obtain echocardiogram -Placed on telemetry -Patient does relate that he felt lightheaded prior to this event but denies any chest pain. -Per nursing patient was having orthostatic changes on exam so we will give IV fluids normal saline at 80 per hour -Patient also had a positive alcohol level upon admission 2. Anemia, present upon admission and ongoing -Patient with cirrhosis and recent GI bleed due to esophageal varices -Anemia improved since previous hospital stay in February 3. Cirrhosis, present upon admission and ongoing -Patient has history of cirrhosis with elevated liver function tests -Continue outpatient medications -Get alcohol abuse consultation 4. History of alcohol dependence and abuse, present on admission and ongoing -Patient states he has not consumed alcohol since February 2017 when he was admitted for esophageal varices bleeds -Patient's blood alcohol level at 94 on admission Patient is being admitted as observation status. I expect him to spend less than 2 midnights in the hospital GI Prophylaxis: H2 oscar VTE Prophylaxis: SCDs VTE Mechanical Devices: Intermittant Pneumatic CD Resuscitation Status: CPR: Attempt Resuscitation Time spent 30 minute Shelley Machuca MD Apr 27, 2017 15:00
--- NOTE | 2017-04-27 15:39 | DRSVH ---
[facility] [address] [place] [address] Echocardiogram Report Name: DARRON FERREIRA SStudy Date: Height: 70.5 in Hospital Exam Location: [facility] Weight: 276 lb Gender: Male BSA: 2.4 m2 : 1965 Age: 52 yrs BP: 115/79 mm Hg Reason For Study: Syncopal Event Ordering Physician: [facility]OSPITALIST [facility] Performed By: Viktoriya Chan Referring Physician: [facility] Interpretation Summary 1) Normal left ventricular size, thickness, wall motion, and systolic function (EF 65-70%). 2) Normal right ventricular size and function. 3) No signficant valvular abnormalities. 4) No prior Echo available for comparison. Procedure: A two-dimensional transthoracic echocardiogram with color flow and Doppler was performed. The study quality was technically adequate. There is no prior echocardiogram noted for this patient. The patient was in normal sinus rhythm during the exam. Left Ventricle: The left ventricle is grossly normal size. The ejection fraction is estimated to be 65-70%. Left ventricular systolic function is normal without focal wall motion abnormalities. Right Ventricle: The right ventricle grossly appears normal in size with probable normal systolic function. Atria: The left atrium is mildly dilated. Right atrial size is normal. The interatrial septum is intact with no evidence for an atrial septal defect. Mitral Valve: The mitral valve is normal in structure and function. There is trace mitral regurgitation. Aortic Valve: The aortic valve is trileaflet. The aortic valve opens well. There is no aortic valve stenosis. No aortic regurgitation is present. Tricuspid Valve: The tricuspid valve is normal in structure and function. There is a trace or physiologic amount of tricuspid regurgitation. The right ventricular systolic pressure is estimated at 29 mmHg assuming a right atrial pressure of 3 mm Hg. Pulmonic Valve: The pulmonic valve is not well seen, but is grossly normal. Great Vessels: The aortic root is normal size. The ascending aorta could not be visualized. The IVC is of normal diameter and collapses greater than 50% with a sniff. This suggests a low right atrial pressure of 3 mm Hg. Pericardium/ Pleura There is no pericardial effusion. There is an anterior echo-free space consistent with a fat pad. There is no pleural effusion. MMode/2D Measurements & Calculations RA long axis: 5.6 cm LA A2 area: 26.2 cm LA A4 area: 24.2 cm RA area: 12.7 cm LA length (vol): 5.7 cm RA vol: 24.6 ml LA vol: 94.1 ml RA : 10.2 ml/m2 LA vol index: 39.1 ml/m2 LVOT diam: 2.6 cm TAPSE: 2.3 cm Doppler Measurements & Calculations Ao V2 max: 157.8 cm/sec MV E max amrik: 86.8 cm/sec Ao max P.0 mmHg MV A max amrik: 70.4 cm/sec Ao mean P.2 mmHg LVOT Max Amrik: 124.4 cm/sec ANNIE(I,D): 4.9 cm sev ratio: 0.94 MV E/A: 1.2 TR max amrik: 255.8 cm/sec TR max P.2 mmHg MV dec time: 0.19 sec Ao V2 mean: 108.1 cm/sec Ao V2 VTI: 27.4 cm ANNIE(V,D): 4.1 cm2 LV V1 max P.2 mmHg ANNIE indexed to BSA (cm^2/m^2): 2.0 LV V1 VTI: 25.7 cm Reading Physician:03:38 PM
[2017-04-27] MEDS: Lactulose 20 Gm/30 mL 30 mL Syrup PO SCH ×2 (17:25→20:45)
[2017-04-28 05:20] VITALS: BP 133/83; PULSE 87; RESP 17; O2SAT 98
--- NOTE | 2017-04-28 05:32 | NUR ---
Activity Patient had very little sleep as patient up frequently up to use bathroom. Independent in room with frequent rounding. VSS. Denies Pain, and or discomfort at this time. Care continues.
[2017-04-28 05:45] VITALS: PULSE 83
[2017-04-28] MEDS: Lactulose 20 Gm/30 mL 30 mL Syrup PO SCH (07:51)
[2017-04-28] MEDS: Pantoprazole 40 mg ER24 Tablet PO SCH (07:51)
[2017-04-28 08:18] VITALS: BP 108/68; PULSE 76; RESP 18; O2SAT 98
[2017-04-28 08:28] VITALS: PULSE 75
--- NOTE | 2017-04-28 10:27 | PCM.DIMED ---
Discharge Instructions Date of Service Apr 28, 2017 Dates of Hospitalization Apr 26, 2017 at 21:09 Discharge Diagnosis Discharge Diagnosis Syncope secondary to dehydration and alcohol use Diet Discharge Diet: Heart Healthy Activity Discharge Activity: Other (progresses tolerated) Call your provider Call your provider for: Fever or Chills, Shortness of breath, Bleeding, Chest pain, Vomitting, Excessive diarrhea, Weakness (unilateral) Patient Instructions Follow-up Provider: Omar Moralez MD Follow-up with PCP in: 1 week Shelley Machuca MD Apr 28, 2017 10:27
[2017-04-28] MEDS: 0.9% Sodium Chloride 1,000 ML IV SCH (10:35)
--- NOTE | 2017-04-28 13:13 | NUR ---
DC IV removed from Right AC. All discharge instructions reviewed with pt. Pt states that he has no further questions. All belongings in hand. Care discontinues.
--- NOTE | 2017-04-28 14:18 | PCM.DC.MED ---
Discharge Summary Date of Service Apr 28, 2017 Dates of Hospitalization Date of Hospital Admission Apr 26, 2017 at 21:09 Date of Discharge: Apr 28, 2017 Providers: Admitting Physician: Hortencia Mesa DO Primary Care Physician: Paul Campuzano DO Attending Physician: Shelley Machuca MD Diagnosis at Time of Discharge Diagnosis at Time of Discharge Syncope secondary to dehydration and alcohol use Procedures XRay, CTs & MRIs PROCEDURE: CT BRAIN WITHOUT CONTRAST ([id number]) IMPRESSION: No trauma found. ECG 12 Lead ECG Interpretation: 1st degree heart block Left anterior fascicular block Time: 18:30 Interpreted by: ED physician Cardiac Echo Impression Name: DARRON FERREIRA SStudy Date: Height: 70.5 in Hospital Exam Location: [facility] Weight: 276 lb Gender: Male BSA: 2.4 m2 : 1965 Age: 52 yrs BP: 115/79 mm Hg Reason For Study: Syncopal Event Ordering Physician: [facility]PITALIST [facility] Performed By: Viktoriya Chan Referring Physician: Matheus Fish Interpretation Summary 1) Normal left ventricular size, thickness, wall motion, and systolic function (EF 65-70%). 2) Normal right ventricular size and function. 3) No signficant valvular abnormalities. 4) No prior Echo available for comparison. Brief History Patient is a 52-year-old male that presented to the emergency department via EMS after a syncopal episode in which he hit his head. He has a history of alcoholic cirrhosis, portal hypertension, coagulopathy Patient presented to the emergency department after an unwitnessed syncopal episode. Patient was found down and was told that he would had lost consciousness for at least 5 minutes. Observer denied any convulsive activities and stated that patient was snoring. Patient admits to having a laceration, presumably from the fall. He states that he had just walked into his house and was experiencing some pain from walking up a step secondary to knee arthritis. Patient states he was hungry and was about to eat when he was suddenly feeling lightheaded. He awoke lying on the floor. He had lost his bowels but not bladder. Patient has never had anything like this before and states that he now feels fine as he did upon awakening. Patient denies any change in vision, change in hearing, weakness, confusion, chest pain, nausea, vomiting, palpitations, cough. Patient believes he has had an echo but is uncertain. We have no record of an echo. Of note, patient was hospitalized in February 2017 for bleeding esophageal varices. He states that he is not consumed alcohol since that point. Hospital Course Patient is a 52-year-old male that presented to the emergency department by EMS after syncopal episode. He has a history of alcoholic cirrhosis and portal hypertension 1. Syncopal event, present upon admission and ongoing -Syncopal event with loss of consciousness for approximately 5 minutes. Loss of bowel, denies confusion -Cardiogenic versus neurogenic versus alcohol withdrawal is unclear with given history -Obtain echocardiogram which did not reveal any acute abnormalities -Placed on telemetry -Patient does relate that he felt lightheaded prior to this event but denies any chest pain. -Per nursing patient was having orthostatic changes on exam so we will give IV fluids normal saline at 80 per hour -Patient also had a positive alcohol level upon admission -We will go ahead and hold his Lasix and spironolactone and until seen by primary care provider given orthostatic changes when he presented which resolved at discharge 2. Anemia, present upon admission and ongoing -Patient with cirrhosis and recent GI bleed due to esophageal varices -Anemia improved since previous hospital stay in February 3. Cirrhosis, present upon admission and ongoing -Patient has history of cirrhosis with elevated liver function tests -Continue outpatient medications -Get alcohol abuse consultation 4. History of alcohol dependence and abuse, present on admission and ongoing -Patient states he has not consumed alcohol since February 2017 when he was admitted for esophageal varices bleeds -Patient's blood alcohol level at 94 on admission Exam Vital Signs (Last) Date Time Temp Pulse Resp B/P Pulse Ox O2 Delivery O2 Flow Rate FiO2 04/28/17 08:28 75 04/28/17 08:18 36.6 18 108/68 98 Room Air Exam Constitutional: Middle-aged male in no acute distress Head: Normocephalic atraumatic Chest: Clear to auscultation Cor: Regular rate and rhythm S1-S2 Abdomen: Soft nontender bowel sounds present Extremities: No pedal edema Skin: No lesions Psych: Mood and affect appropriate Neuro: Alert and oriented 3, motor strength is intact bilaterally Test 04/26/17 16:17 04/27/17 00:00 9/15/17 07:40 04/28/17 08:45 Hold Purple Top Tube Received (Received) Prothrombin Time 13.6sec (8.1-12.5) Prothromb Time International Ratio 1.26ratio Hold Blue Top Tube Received (Received) Hemoglobin A1c 5.5% (4.8-5.6) Hold [place] Top Tube Received (Received) Alcohols 94mg/dL (0-10) Troponin T 0.010ug/L (0.0-0.011) White Blood Count 5.6th/mm3 (3.8-10.1) Red Blood Count 3.82mil/mm3 (4.40-5.80) Hemoglobin 8.6g/dL (13.8-17.2) Hematocrit 26.9% (41.0-50.0) Mean Corpuscular Volume 70.4fL (81-100) Mean Corpuscular Hemoglobin 22.5pg (27.0-35.0) Mean Corpuscular Hemoglobin Concent 32.0% (32.0-37.0) Red Cell Distribution Width 20.0% (12.3-15.4) Platelet Count 126bil/L (150-400) Neutrophils (%) (Auto) 59.0% (40-74) Lymphocytes (%) (Auto) 19.7% (14-46) Monocytes (%) (Auto) 18.1% (4-12) Eosinophils (%) (Auto) 2.7% (0-5) Basophils (%) (Auto) 0.5% (0-3) Magnesium Level 1.9mg/dL (1.6-2.6) Total Bilirubin 2.8mg/dL (0.0-1.2) Aspartate Amino Transf (AST/SGOT) 57U/L (0-50) Alanine Aminotransferase (ALT/SGPT) 17U/L (0-44) Alkaline Phosphatase 139U/L (25-150) Total Protein 6.6g/dL (6.4-8.4) Albumin 3.1g/dL (3.4-5.0) Sodium Level 130mEq/L (134-144) Potassium Level 4.5mEq/L (3.5-5.2) Chloride Level 98mEq/L (97-108) Carbon Dioxide Level 21mmol/L (18-29) Blood Urea Nitrogen 6mg/dL (6-24) Creatinine 0.58mg/dL (0.76-1.27) Estimat Glomerular Filtration Rate 157mL/min (>59) Glucose Level 161mg/dL (60-99) Calcium Level 8.8mg/dL (8.5-10.1) Ammonia 116ug/dL (18-53) Discharge Medications Discharge Medications Furosemide (Furosemide) 40 Mg Tablet 40 MG PO DAILY (Reported) Lactulose (Lactulose) 10 Gm/15 Ml Solution 20 GM PO BID (Reported) Nadolol (Nadolol) 20 Mg Tablet 20 MG PO DAILY (Reported) Omeprazole (Omeprazole) 20 Mg Tablet.dr 20 MG PO BID (Reported) Spironolactone (Spironolactone) 100 Mg Tablet 100 MG PO DAILY (Reported) Thiamine Mononitrate (Vitamin B-1) 100 Mg Tablet 100 MG PO DAILY (Reported) Followup Plan Discharge Diet: Heart Healthy Discharge Activity: Other (progresses tolerated) Follow-up Provider: Omar Moralez MD Follow-up with PCP in: 1 week Time spent 45 minutes copies to: Omar Moralez MD, Cheryl A MD Apr 28, 2017 14:18
== END 2017-04-28 13:39 | disposition home or self-care (01) ==
LOC: EDBD 15:47 → SED 15:47 → EDUNIT# 15:47 → OSC 21:09
PROVIDERS: ADMIT Internal Medicine; ATTEND Specialist
DX: R55 Syncope and collapse (principal); E86.0 Dehydration; F10.20 Alcohol dependence, uncomplicated; D64.9 Anemia, unspecified; S01.311A Laceration without foreign body of right ear, initial encounter; K70.30 Alcoholic cirrhosis of liver without ascites; K76.6 Portal hypertension; D68.9 Coagulation defect, unspecified; D69.6 Thrombocytopenia, unspecified; F32.9 Major depressive disorder, single episode, unspecified; F17.210 Nicotine dependence, cigarettes, uncomplicated; W18.30XA Fall on same level, unspecified, initial encounter; Y93.9 Activity, unspecified; Y92.9 Unspecified place or not applicable; Y99.9 Unspecified external cause status; Z79.899 Other long term (current) drug therapy
CPT/HCPCS: 12011; 36415; 70450; 80048; 80053; 82140; 83036; 83735; 84484; 85025; 85610; 93005; 99285; C8929; G0378; G0480; J7030